=== PATIENT | male | born 1940 | race Caucasian/White ===

== ENCOUNTER 2016-09-13 11:40 | Observation (INO) | payer MEDICARE, OTHER ==
[2016-09-13] VITALS (14 sets, daily range): BP systolic 113–152; BP diastolic 64–123; PULSE 50–160; RESP 16–22; TEMP 96.5–98; O2SAT 92–97
[~2016-09-13] VITALS: Ht 172.7 cm; Wt 112.1 kg
[~2016-09-13 11:40] MED LIST: AMIO200T PO; APIX5TAB PO; ASPI-110 PO; COQ-100C2 PO; FURO1TAB60 PO; IPRA0.03 EACH NARE; MULT-135 PO; OSTETAB PO; POTA10TA2 PO; PRAV80TA2 PO; TAMS0.4C4 PO; VITA10003 PO; ZETI10TA5 PO
[2016-09-13] MEDS ORDERED: TEST-55 (11:58)
[2016-09-13] MEDS ORDERED: ASPIRIN 325 MG TAB PO ONE (12:00)
[2016-09-13] MEDS ORDERED: SODIUM CHLORIDE 0.9% FLUSH 5 ML FLUSH IVF PRN ×2 (12:00→13:30)
--- NOTE | 2016-09-13 12:02 | PD ---
HPI Chief Complaint: Cardiac Complaint Time Seen by Provider: 11:53 Travel History International Travel<30 days: No Contact w/Intl Traveler<30days: No Traveled to known affect area: No History of Present Illness HPI Patient presents with complaints of elevated heart rate mild dyspnea and mild diaphoresis. Reports a history of atrial fibrillation with [address] Painting. Other past medical history includes CHF hypertension and hyperlipidemia. Reel Hooker is Dr. Dillard. Denies any radiation to left arm. Nondiabetic. Nonsmoker. Positive family history for cardiac disease. Reports that his heart rate was elevated yesterday morning in the 150s however after dinner it dropped into the 70s and was fine overnight. When he awoke this morning pulse was again elevated to proceeded to the emergency room. PFSH Past Medical History Hx Anticoagulant Therapy: Yes (ELIQUIS, ASA ) Arthritis: Yes Asthma: No Anxiety: Yes Depression: No Heart Rhythm Problems: Yes (Afib/flutter, CHF) Cancer: Yes (SKIN) Cardiac Catheterization: Yes Cardiovascular Problems: Yes (ABLATIONS TIMES 2, STENT A. FIB, CHOL) High Cholesterol: Yes Chemotherapy: No Chest Pain: No Congestive Heart Failure: Yes COPD: No Diabetes: No Diminished Hearing: No Endocrine: No Gastrointestinal Disorders: No Genitourinary: No Hypertension: Yes Immune Disorder: No Implanted Vascular Access Dvce: Yes Kidney Stones: Yes (in the past) Musculoskeletal: Yes Neurologic: No Psychiatric: Yes Reproductive: No Respiratory: Yes Radiation Therapy: No Sickle Cell Disease: No Sleep Apnea: Yes Tetanus Vaccination: Unknown Past Surgical History Abdominal Surgery: Yes (APPENDECTOMY) AICD: No Arteriovenous Shunt: No Body Medical Devices: STENT Cardiac Surgery: Yes (, STENT, ABLATIONS TIMES 2) Coronary Stent: Yes Eye Surgery: Yes (CATARACT) Insulin Pump: No Joint Replacement: Yes (SCREWS IN RIGHT FOOT) Pacemaker: No Other Surgery: Yes (CATARACTS ) Social History Alcohol Use: No Tobacco Use: No Substance Use: No Allergies-Medications (Allergen,Severity, Reaction): Coded Allergies: No Known Allergies (Unverified , 07/23/16) Reported Meds & Prescriptions Reported Meds & Active Scripts Active Reported Testosterone (Testosterone (Bulk)) 1 Pow Pow Unknown Dose WEEKLY Potassium Chloride ER (Potassium Chloride) 10 Meq Tab 10 Meq PO BID Multi Vitamin (Multiple Vitamin) 1 Tab Tab 1 Tab PO DAILY Ipratropium Nasal 0.03% Bivins 1 Bivins EACH NARE TID PRN Vitamin D-3 (Cholecalciferol) 1,000 Unit Tab 1,000 Units PO DAILY Osteo Bi-Flex Triple Stre (Misc Natural Products) 1 Tab Tab 1,500 Mg PO DAILY Lasix (Furosemide) 40 Mg Tab 40 Mg PO BID Zetia (Ezetimibe) 10 Mg Tab 10 Mg PO DAILY Coq-10 (Coenzyme Q10 (Ubidecarenone)) 100 Mg Cap 100 Mg PO DAILY Aspirin 81 (Aspirin) 81 Mg Tabdr 81 Mg PO BID Eliquis (Apixaban) 5 Mg Tab 5 Mg PO BID Amiodarone (Amiodarone HCl) 200 Mg Tab 200 Mg PO DAILY Tamsulosin (Tamsulosin HCl) 0.4 Mg Cap 0.4 Mg PO DAILY Pravastatin 80 Mg Tab 80 Mg PO HS Review of Systems General / Constitutional: No: Fever Eyes: No: Visual changes HENT: No: Headaches Cardiovascular: Positive: Tachycardia, No: Chest Pain or Discomfort Respiratory: Positive: Shortness of Breath Gastrointestinal: No: Abdominal Pain Genitourinary: No: Dysuria Musculoskeletal: No: Pain Skin: No Rash Neurologic: No: Weakness Psychiatric: No: Depression Endocrine: No: Polydipsia Hematologic/Lymphatic: No: Easy Bruising Physical Exam Narrative GENERAL: Well-nourished, well-developed patient. SKIN: Warm and dry. HEAD: Normocephalic. EYES: No scleral icterus. No injection or drainage. NECK: Supple, trachea midline. No JVD or lymphadenopathy. CARDIOVASCULAR: Regular rate and tachycardic without murmurs, gallops, or rubs. RESPIRATORY: Breath sounds equal bilaterally. No accessory muscle use. GASTROINTESTINAL: Abdomen soft, non-tender, nondistended. MUSCULOSKELETAL: No cyanosis, or edema. BACK: Nontender without obvious deformity. No CVA tenderness. Data Data Last Documented VS Vital Signs Date Time Temp Pulse Resp B/P Pulse Ox O2 Delivery O2 Flow Rate FiO2 09/13/16 12:45 107 17 113/64 97 Room Air 09/13/16 12:10 2 09/13/16 11:46 98.0 Orders Electrocardiogram (09/13/16 11:53) Basic Metabolic Panel (Bmp) (09/13/16 11:53) Ckmb (Isoenzyme) Profile (09/13/16 11:53) Comprehensive Metabolic Panel (09/13/16 11:53) Magnesium (Mg) (09/13/16 11:53) Prothrombin Time / Inr (Pt) (09/13/16 11:53) Act Partial Throm Time (Ptt) (09/13/16 11:53) Troponin I (09/13/16 11:53) Chest, Single Ap (09/13/16 11:53) Ecg Monitoring (09/13/16 11:53) Bilateral Bp Monitoring (09/13/16 11:53) Iv Access Insert/Monitor (09/13/16 11:53) Oximetry (09/13/16 11:53) Oxygen Administration (09/13/16 11:53) Aspirin (Aspirin) (09/13/16 12:00) Sodium Chloride 0.9% Flush (Ns Flush) (09/13/16 12:00) Metoprolol Tartrate Inj (Lopressor Inj) (09/13/16 12:00) Electrocardiogram (09/13/16 ) Digoxin Inj (Lanoxin Inj) (09/13/16 13:00) Metoprolol Tartrate (Lopressor) (09/13/16 21:00) Labs Laboratory Tests Test 09/13/16 11:45 Prothrombin Time 11.8 SEC Prothromb Time International 1.1 RATIO Ratio Activated Partial 29.0 SEC Thromboplast Time Sodium Level 145 MEQ/L Potassium Level 3.9 MEQ/L Chloride Level 108 MEQ/L Carbon Dioxide Level 27.4 MEQ/L Anion Gap 10 MEQ/L Blood Urea Nitrogen 30 MG/DL Creatinine 1.30 MG/DL Estimat Glomerular Filtration 54 ML/MIN Rate Random Glucose 213 MG/DL Calcium Level 8.7 MG/DL Magnesium Level 2.3 MG/DL Total Bilirubin 0.4 MG/DL Aspartate Amino Transf 13 U/L (AST/SGOT) Alanine Aminotransferase 23 U/L (ALT/SGPT) Alkaline Phosphatase 59 U/L Total Creatine Kinase 47 U/L Troponin I 0.06 NG/ML Total Protein 7.2 GM/DL Albumin 3.4 GM/DL [facility] Medical Decision Making Medical Screen Exam Complete: Yes Emergency Medical Condition: Yes Differential Diagnosis Atrial fibrillation, SVT, acute coronary syndrome, pulmonary embolism Narrative Course Assessment and plan discussed with patient and at bedside. Initial EKG revealed a sinus tachycardia with a rate of 160 and right bundle branch block. Previous EKG on file was at the time of his previous ablation on 07/25/16 which revealed sinus bradycardia rate of 50. Patient received a single dose of IV beta eleonora with good results. Rate in the 100s. Repeat EKG confirmed atrial fibrillation. Cardiac enzymes mildly elevated at 0.06 likely secondary to A. fib. Physician Communication Physician Communication Spoke with Dr. Ha who is covering for Dr. Dillard and Dr. Sweeney who is in agreement will admit for observation. Diagnosis Primary Impression: A-fib Qualified Code: I48.0 - Paroxysmal atrial fibrillation Nico Gr MD Sep 13, 2016 12:02
[2016-09-13] MEDS: METOPROLOL TARTRATE 5 MG/5 ML VIAL IVS SCH ×3 (12:04→12:10)
[2016-09-13 12:12] LABS: CHLORIDE 108 MEQ/L (98-107); POTASSIUM 3.9 MEQ/L (3.5-5.1); SODIUM (NA) 145 MEQ/L (136-145)
[2016-09-13 12:16] LABS: ANION GAP 10 MEQ/L (5-15); BICARBONATE 27.4 MEQ/L (21.0-32.0); BLOOD UREA NITROGEN 30 MG/DL (7-18); MAGNESIUM 2.3 MG/DL (1.5-2.5)
[2016-09-13 12:17] LABS: INTERNATIONAL NORMALIZED RATIO 1.1 RATIO; PROTHROMBIN TIME - PATIENT 11.8 SEC (9.8-11.6)
[2016-09-13 12:19] LABS: ALT (GPT) 23 U/L (12-78); AST (GOT) 13 U/L (15-37); GLOMERULAR FILTRATION RATE 54 ML/MIN (>89)
[2016-09-13 12:20] LABS: TOTAL BILIRUBIN ADULT 0.4 MG/DL (0.2-1.0)
[2016-09-13 12:22] LABS: ALKALINE PHOSPHATASE 59 U/L (45-117); CREATINE KINASE 47 U/L (39-308)
--- NOTE | 2016-09-13 12:39 | RADHPO ---
EXAM DATE/TIME: 09/13/2016 12:07 [facility] COMPARISON: CHEST SINGLE AP, July 23, 2016, 9:11. INDICATIONS : Irregular heart rate, short of breath, cough MEDICAL HISTORY : None. SURGICAL HISTORY : None. ENCOUNTER: Initial ACUITY: 1 day PAIN SCORE: 0/10 LOCATION: Bilateral chest FINDINGS: Portable AP view of the chest demonstrate stable enlargement of the cardiac silhouette. There is stab le interstitial prominence. No effusion, consolidation, or pneumothorax is appreciated. Bones and sof t tissues demonstrate no acute finding. CONCLUSION: Stable enlargement of the cardiac silhouette with interstitial prominence. Otherwise, no acute findin g is identified. Brannon Venegas MD on September 13, 2016 at 12:37 Board Certified Radiologist. This report was verified electronically.
[2016-09-13] MEDS ORDERED: DIGOXIN 0.5 MG/2 ML VIAL IV PUSH ONE (13:00)
[2016-09-13] MEDS ORDERED: ACETAMINOPHEN 325 MG TAB PO PRN (13:30)
[2016-09-13] MEDS ORDERED: ONDANSETRON HCL 4 MG/2 ML VIAL IV PRN (13:30)
[2016-09-13] MEDS ORDERED: ACETAMINOPHEN 650 MG SUPP PR PRN (13:30)
[2016-09-13] MEDS: METOPROLOL TARTRATE 5 MG/5 ML VIAL IV PUSH PRN ×3 (15:30→22:32)
--- NOTE | 2016-09-13 18:21 | HHI.HP ---
[facility] Husam Tierney MD Admission Diagnosis paroxysmal atrial fibrillation Diagnoses: Travel History International Travel<30 Days: No Contact w/Intl Traveler <30 Da: No Traveled to Known Affected Are: No Past Family Social History Past Medical History Hypertension Dyslipidemia BPH Obstructive sleep apnea and severe left Atrial fibrillation s/p ablation 07/[address] Laura Chronic systolic congestive heart failure - EF 25-30% Coronary artery disease status post coronary stenting in the past Past Surgical History Cardiac ablation for atrial fibrillation Coronary stenting Right foot surgery Cataract surgery Allergies: Coded Allergies: No Known Allergies (Unverified , 07/23/16) Physical Exam Vital Signs Vital Signs Date Time Temp Pulse Resp B/P Pulse Ox O2 Delivery O2 Flow Rate FiO2 09/13/16 16:00 96.9 70 20 125/89 95 09/13/16 15:52 99 136/81 09/13/16 15:52 99 09/13/16 15:24 122 09/13/16 14:30 97.6 81 22 119/82 93 09/13/16 14:27 109 16 136/68 96 Nasal Cannula 2 09/13/16 12:45 107 17 113/64 97 Room Air 09/13/16 12:11 150/72 125/67 09/13/16 12:10 103 16 150/72 97 Nasal Cannula 2 09/13/16 12:00 97 Nasal Cannula 2.00 09/13/16 11:59 97 Nasal Cannula 2 09/13/16 11:59 18 97 Nasal Cannula 2 09/13/16 11:50 18 93 Nasal Cannula 2 09/13/16 11:46 98.0 160 18 152/123 94 Physical Exam Laboratory Laboratory Tests Test 09/13/16 09/13/16 11:45 17:31 Prothrombin Time 11.8 Prothromb Time International 1.1 Ratio Activated Partial 29.0 Thromboplast Time Sodium Level 145 Potassium Level 3.9 Chloride Level 108 Carbon Dioxide Level 27.4 Anion Gap 10 Blood Urea Nitrogen 30 Creatinine 1.30 Estimat Glomerular Filtration 54 Rate Random Glucose 213 Calcium Level 8.7 Magnesium Level 2.3 Total Bilirubin 0.4 Aspartate Amino Transf 13 (AST/SGOT) Alanine Aminotransferase 23 (ALT/SGPT) Alkaline Phosphatase 59 Total Creatine Kinase 47 46 Troponin I 0.06 0.10 Total Protein 7.2 Albumin 3.4 Result Diagram: 09/13/16 1145 Nery Sweeney MD Sep 13, 2016 18:21
--- NOTE | 2016-09-13 19:43 | HHI.HP ---
[facility] Service [facility] Primary Care Physician Husam Tierney MD Admission Diagnosis paroxysmal atrial fibrillation Diagnoses: Travel History International Travel<30 Days: No Contact w/Intl Traveler <30 Da: No Traveled to Known Affected Are: No History of Present Illness This is a very pleasant 76-year-old male with history of chronic systolic congestive heart failure, paroxysmal atrial fibrillation diagnosed in fall. He comes in today for uncontrolled heart rate. He underwent an ablation last month with Dr. Jansen. He has been told to check his pulse daily. This morning it was 160. Yesterday morning it was also elevated. He does get short of breath when this happens. He came to the ER. He takes amiodarone. He used to take atenolol but this was stopped after his last ablation. He states he's been told by Dr. Jansen that he cannot have another ablation due to too much scar tissue. Review of Systems Constitutional: DENIES: Fever, Chills Ears, nose, mouth, throat: DENIES: Throat pain, Sinus Pain Respiratory: COMPLAINS OF: Shortness of breath, DENIES: Sputum production Cardiovascular: COMPLAINS OF: Palpitations, DENIES: Chest pain Gastrointestinal: DENIES: Diarrhea, Vomiting Genitourinary: DENIES: Urgency, Dysuria Musculoskeletal: DENIES: Joint Swelling, Back pain Integumentary: DENIES: Pruritus, Rash Neurologic: DENIES: Headache, Localized weakness Psychiatric: DENIES: Anxiety, Confusion Past Family Social History Past Medical History Hypertension Dyslipidemia BPH Obstructive sleep apnea and severe left Atrial fibrillation s/p ablation 07/[address] Laura Chronic systolic congestive heart failure - EF 25-30% Coronary artery disease status post coronary stenting in the past Past Surgical History Cardiac ablation for atrial fibrillation Coronary stenting Right foot surgery Cataract surgery Allergies: Coded Allergies: No Known Allergies (Unverified , 07/23/16) Family History reviewed, [facility] [place] Social History no etoh Physical Exam Vital Signs Vital Signs Date Time Temp Pulse Resp B/P Pulse Ox O2 Delivery O2 Flow Rate FiO2 09/13/16 16:00 96.9 70 20 125/89 95 09/13/16 15:52 99 136/81 09/13/16 15:52 99 09/13/16 15:24 122 09/13/16 14:30 97.6 81 22 119/82 93 09/13/16 14:27 109 16 136/68 96 Nasal Cannula 2 09/13/16 12:45 107 17 113/64 97 Room Air 09/13/16 12:11 150/72 125/67 09/13/16 12:10 103 16 150/72 97 Nasal Cannula 2 09/13/16 12:00 97 Nasal Cannula 2.00 09/13/16 11:59 97 Nasal Cannula 2 09/13/16 11:59 18 97 Nasal Cannula 2 09/13/16 11:50 18 93 Nasal Cannula 2 09/13/16 11:46 98.0 160 18 152/123 94 Physical Exam GENERAL: This is a well-nourished, well-developed patient, in no apparent distress. SKIN: No rashes, ecchymoses or lesions. Cool and dry. HEAD: Atraumatic. Normocephalic. No temporal or scalp tenderness. EYES: Pupils equal round and reactive. Extraocular motions intact. No scleral icterus. No injection or drainage. ENT: Nose without bleeding, purulent drainage or septal hematoma. Throat without erythema, tonsillar hypertrophy or exudate. Uvula midline. Airway patent. NECK: Trachea midline. No JVD or lymphadenopathy. Supple, nontender, no meningeal signs. CARDIOVASCULAR: Regular rate and rhythm without murmurs, gallops, or rubs. RESPIRATORY: Clear to auscultation. Breath sounds equal bilaterally. No wheezes , rales, or rhonchi. GASTROINTESTINAL: Abdomen soft, non-tender, nondistended. No hepato-splenomegaly , or palpable masses. No guarding. MUSCULOSKELETAL: Extremities without clubbing, cyanosis, or edema. No joint tenderness, effusion, or edema noted. No calf tenderness. Negative Homans sign bilaterally. NEUROLOGICAL: Awake and alert. Cranial nerves II through XII intact. Motor and sensory grossly within normal limits. Five out of 5 muscle strength in all muscle groups. Normal speech. Laboratory Laboratory Tests Test 09/13/16 09/13/16 11:45 17:31 Prothrombin Time 11.8 Prothromb Time International 1.1 Ratio Activated Partial 29.0 Thromboplast Time Sodium Level 145 Potassium Level 3.9 Chloride Level 108 Carbon Dioxide Level 27.4 Anion Gap 10 Blood Urea Nitrogen 30 Creatinine 1.30 Estimat Glomerular Filtration 54 Rate Random Glucose 213 Calcium Level 8.7 Magnesium Level 2.3 Total Bilirubin 0.4 Aspartate Amino Transf 13 (AST/SGOT) Alanine Aminotransferase 23 (ALT/SGPT) Alkaline Phosphatase 59 Total Creatine Kinase 47 46 Troponin I 0.06 0.10 Total Protein 7.2 Albumin 3.4 Result Diagram: 09/13/16 1145 Assessment and Plan Assessment and Plan -Atrial fibrillation with rapid ventricular rate. Status post digoxin metoprolol IV. He has been started on metoprolol by mouth. Hopefully this will control his rate. Continue amiodarone and Eliquis. Observe overnight. Nery Sweeney MD Sep 13, 2016 19:43
[2016-09-13] MEDS ORDERED: PRAVASTATIN SOD 80 MG TAB PO SCH (21:00)
[2016-09-13] MEDS ORDERED: METOPROLOL TARTRATE 25 MG TAB PO SCH (21:00)
[2016-09-13] MEDS: APIXABAN 5 MG TABLET PO SCH (21:16)
[2016-09-13] MEDS: FUROSEMIDE 40 MG TAB PO SCH (21:16)
[2016-09-13] MEDS: ASPIRIN EC 81 MG TABEC PO SCH (21:17)
[2016-09-13] MEDS: POTASSIUM CHLORIDE 10 MEQ CONTROLLED RELEASE TAB PO SCH (21:17)
[2016-09-13] MEDS: METOPROLOL TARTRATE 50 MG TAB PO SCH (21:17)
[2016-09-13] MEDS: SODIUM CHLORIDE 0.9% FLUSH 5 ML FLUSH IVF SCH (21:18)
[2016-09-14] VITALS: BP 137/95; PULSE 77; RESP 20; TEMP 96.5; O2SAT 95
[2016-09-14 04:00] VITALS: BP 119/98; PULSE 79; RESP 20; TEMP 96.3; O2SAT 96
[2016-09-14] MEDS: METOPROLOL TARTRATE 50 MG TAB PO SCH (05:27)
[2016-09-14 08:00] VITALS: BP 142/85; PULSE 103; PULSE 52; RESP 22; TEMP 98.4; O2SAT 93
[2016-09-14] MEDS: ASPIRIN EC 81 MG TABEC PO SCH (08:05)
[2016-09-14] MEDS: POTASSIUM CHLORIDE 10 MEQ CONTROLLED RELEASE TAB PO SCH (08:05)
[2016-09-14] MEDS: FUROSEMIDE 40 MG TAB PO SCH (08:06)
[2016-09-14] MEDS: SODIUM CHLORIDE 0.9% FLUSH 5 ML FLUSH IVF SCH (08:06)
[2016-09-14] MEDS: APIXABAN 5 MG TABLET PO SCH (08:06)
[2016-09-14 08:55] VITALS: O2SAT 98
[2016-09-14] MEDS ORDERED: AMIODARONE 200 MG TAB PO SCH (09:00)
[2016-09-14] MEDS ORDERED: EZETIMIBE 10 MG TAB PO SCH (09:00)
[2016-09-14] MEDS ORDERED: TAMSULOSIN HCL 0.4 MG CAP PO SCH (09:00)
[2016-09-14] MEDS ORDERED: PNEUMOCOCCAL POLYVALENT INJ 25 MCG/0.5 ML SYR IM ONE (10:00)
[2016-09-14 12:00] VITALS: BP 118/75; PULSE 60; RESP 20; TEMP 98.4; O2SAT 96
[2016-09-14] MEDS ORDERED: METO-426 PO (12:06)
--- NOTE | 2016-09-14 12:17 | HHI.PR ---
Subjective Remarks Patient seen and examined today with Dr Sweeney. Patient HR much improved, reviewed telemetry and no tachycardia after PM metoprolol given. Patient very eager to go home Objective Vitals Vital Signs Date Time Temp Pulse Resp B/P Pulse Ox O2 Delivery O2 Flow Rate FiO2 09/14/16 12:00 98.4 60 20 118/75 96 09/14/16 08:55 98 21 09/14/16 08:00 103 09/14/16 08:00 98.4 52 22 142/85 93 09/14/16 04:00 96.3 79 20 119/98 96 09/14/16 00:00 96.5 77 20 137/95 95 09/13/16 22:25 155 09/13/16 20:55 94 21 09/13/16 20:00 96.5 50 22 92 09/13/16 20:00 105 09/13/16 16:00 96.9 70 20 125/89 95 09/13/16 15:52 99 136/81 09/13/16 15:52 99 09/13/16 15:24 122 09/13/16 14:30 97.6 81 22 119/82 93 09/13/16 14:27 109 16 136/68 96 Nasal Cannula 2 09/13/16 12:45 107 17 113/64 97 Room Air Result Diagram: 09/13/16 1145 Imaging Last Impressions Chest X-Ray 09/13/16 1153 Signed Impressions: Service Date/Time: Tuesday, September 13, 2016 12:07 - CONCLUSION: Stable enlargement of the cardiac silhouette with interstitial prominence. Otherwise, no acute finding is identified. Brannon Venegas MD Objective Remarks GENERAL: Well-nourished, well-developed patient. SKIN: Warm and dry. HEAD: Normocephalic. EYES: No scleral icterus. No injection or drainage. NECK: Supple, trachea midline. No JVD or lymphadenopathy. CARDIOVASCULAR: irregular rate and irregular rhythm without murmurs, gallops, or rubs. RESPIRATORY: Breath sounds equal bilaterally. No accessory muscle use. GASTROINTESTINAL: Abdomen soft, non-tender, nondistended. EXTREMITIES: No cyanosis, or edema. NEUROLOGICAL: Awake, alert, and oriented x 3. Non-focal. Urinary Catheter: No Vascular Central Line Catheter: No A/P Assessment and Plan Atrial fibrillation with rapid ventricular rate. --Status post digoxin metoprolol IV. --He has been started on metoprolol by mouth. With HR control overnight --Continue amiodarone and Eliquis. DVT prevention --Eliquis Written by Zana Winters, acting as scribe for Dr. Sweeney on 09/14/16 at 12 :00. The documentation accurately reflects the work and decisions performed face-to- face by Dr. Sweeney on 09/14/16 at 1200. Discharge Planning Discharge home in stable condition activity: ad Rashmi Diet: Healthy heart diet Medication per medication reconciliation sheet follow up with primary medical doctor in 1 week Zana Winters Sep 14, 2016 12:17
--- NOTE | 2016-09-15 21:36 | EKG ---
Date Performed: 09/13/2016 Time Performed: 12:15:22 PTAGE: 76 years EKG: Atrial fibrillation with rapid ventricular response with an aberrant beat Right bundle bran ch block Abnormal ECG PREVIOUS TRACING : 09/13/2016 11.49 Compared to the previous tracing, rate has decreased DOCTOR: Mk Ha Interpretating Date/Time 09/15/2016 21:35:23
--- NOTE | 2016-09-15 21:42 | EKG ---
Date Performed: 09/13/2016 Time Performed: 11:49:30 PTAGE: 76 years EKG: Probable sinus tachycardia. Right bundle branch block Inferior T wave changes are nonspecif ic Abnormal ECG PREVIOUS TRACING : 07/25/2016 05.17 Compared to the previous tracing, rate has increased, and n ow is a RBBB DOCTOR: Mk Ha Interpretating Date/Time 09/15/2016 21:40:52
== END 2016-09-14 12:51 | disposition home or self-care (01) ==
LOC: PHEFT 11:40 → PHEDA 13:23 → PH3A 14:34
PROVIDERS: ADMIT Family Medicine; ATTEND Family Medicine
DX: I48.0 Paroxysmal atrial fibrillation (principal); I50.22 Chronic systolic (congestive) heart failure; I45.10 Unspecified right bundle-branch block; I25.10 Atherosclerotic heart disease of native coronary artery without angina pectoris; I10 Essential (primary) hypertension; E78.5 Hyperlipidemia, unspecified; N40.0 Benign prostatic hyperplasia without lower urinary tract symptoms; G47.33 Obstructive sleep apnea (adult) (pediatric); E78.00 Pure hypercholesterolemia, unspecified; Z95.5 Presence of coronary angioplasty implant and graft; Z87.442 Personal history of urinary calculi
CPT/HCPCS: 71010; 80053; 82550; 83735; 84484; 85610; 85730; 93005; 96374; 99285; G0378

== ENCOUNTER 2017-12-10 15:49 | Inpatient (IN) | payer MEDICARE, OTHER ==
[2017-12-10] VITALS (9 sets, daily range): BP systolic 119–145; BP diastolic 57–96; PULSE 58–93; RESP 17–18; TEMP 98.1–103.1; O2SAT 93–94
[~2017-12-10] VITALS: Ht 170.2 cm; Wt 122.4 kg
[~2017-12-10 15:49] MED LIST changes: -ASPI-110 PO; +ASPI1TAB57 PO; +EZET10 PO; +METO-426 PO; +TEST-55; -ZETI10TA5 PO
[2017-12-10] MEDS ORDERED: ACETAMINOPHEN 650 MG SUPP RECTAL ONE (16:15)
[2017-12-10 16:54] LABS: AUTOMATED NEUTROPHIL # 7.8 TH/MM3 (1.8-7.7); BASOPHIL % 0.3 % (0.0-2.0); EOSINOPHIL % 0.5 % (0.0-4.0); HEMATOCRIT 45.6 % (39.0-51.0); HEMOGLOBIN 15.6 GM/DL (13.0-17.0); LYMPH % 7.6 % (9.0-44.0); LYMPHOCYTE # 0.7 TH/MM3 (1.0-4.8); MEAN CORPUSCULAR HEMOGLOBIN 29.8 PG (27.0-34.0); MEAN CORPUSCULAR HGB CONC 34.2 % (32.0-36.0); MEAN PLATELET VOLUME 6.8 FL (7.0-11.0); MONO % 2.8 % (0.0-8.0); MONOCYTE # 0.3 TH/MM3 (0-0.9); NEUT % 88.8 % (16.0-70.0); PLATELET COUNT 182 TH/MM3 (150-450); RED BLOOD COUNT 5.24 MIL/MM3 (4.50-5.90); RED CELL DISTRIBUTION WIDTH 13.9 % (11.6-17.2); WHITE BLOOD COUNT 8.8 TH/MM3 (4.0-11.0)
--- NOTE | 2017-12-10 16:57 | RADRPT ---
EXAM DATE/TIME: 12/10/2017 16:16 [facility] COMPARISON: CHEST SINGLE AP, September 13, 2016, 12:07. INDICATIONS : Fever MEDICAL HISTORY : Congestive heart failure. Cardiovascular disease Hypertension. SURGICAL HISTORY : None. ENCOUNTER: Initial ACUITY: 1 day PAIN SCORE: 0/10 LOCATION: chest FINDINGS: A single view of the chest demonstrates the lungs to be symmetrically aerated without evidence of mas s, infiltrate or effusion. However, heart size is prominent with some mild interstitial prominence po ssibly representing some degree of vascular congestion or volume overload. Osseous structures are int act CONCLUSION: 1. No acute infiltrate. 2. Cardiomegaly with mild interstitial prominence concerning for some degree of vascular congestion o r volume overload, unchanged from prior. Yonatan Jang MD on December 10, 2017 at 16:53 Board Certified Radiologist. This report was verified electronically.
[2017-12-10 17:17] LABS: BILIRUBIN, URINE NEG (NEG); BLOOD, URINE TRACE (NEG); GLUCOSE,URINE NEG (NEG); HYALINE CAST, URINE 2 /lpf (RARE); KETONE, URINE NEG (NEG); NITRITE,URINE NEG (NEG); URINE COLOR LIGHT-YELLOW (YELLW/STRAW); URINE LEUKOCYTE ESTERASE NEG (NEG)
[2017-12-10 17:23] LABS: ALBUMIN 4.2 GM/DL (3.4-5.0); AST (GOT) 33 U/L (15-37); BLOOD UREA NITROGEN 24 MG/DL (7-18); CALCIUM 9.4 MG/DL (8.5-10.1); CHLORIDE 102 MEQ/L (98-107); CREATININE 1.38 MG/DL (0.60-1.30); GLOMERULAR FILTRATION RATE 50 ML/MIN (>89); GLUCOSE,RANDOM 113 MG/DL (74-106); SODIUM (NA) 139 MEQ/L (136-145)
[2017-12-10 17:24] LABS: ALT (GPT) 57 U/L (12-78)
[2017-12-10 17:24] LABS: LACTIC ACID SEPSIS PROTOCOL 2.3 mmol/L (0.4-2.0)
[2017-12-10 17:26] LABS: ALKALINE PHOSPHATASE 70 U/L (45-117); TOTAL BILIRUBIN ADULT 0.5 MG/DL (0.2-1.0); TOTAL PROTEIN 8.1 GM/DL (6.4-8.2)
[2017-12-10] MEDS ORDERED: PIPERACIL-TAZO 4.5 GM PREMIX 100 ML IV STA (17:48)
[2017-12-10] MEDS ORDERED: VANCOMYCIN INJ 1,700 MG in SODIUM CHLORID 0.9% 500 ML INJ 500 ML IV ONE (18:00)
[2017-12-10] MEDS ORDERED: REST15CA PO (18:16)
[2017-12-10] MEDS ORDERED: COEN1CAP PO (18:16)
[2017-12-10] MEDS ORDERED: GLUC15009 PO (18:16)
[2017-12-10] MEDS ORDERED: METO-426 PO (18:16)
[2017-12-10] MEDS ORDERED: DULE100A INH (18:16)
[2017-12-10] MEDS ORDERED: VITA1000 PO (18:16)
[2017-12-10] MEDS ORDERED: [UNRECOGNIZED DRUG - CODE] IM (18:16)
[2017-12-10] MEDS ORDERED: MULT1TAB PO (18:16)
--- NOTE | 2017-12-10 18:18 | PD ---
HPI Chief Complaint: Cold / Flu Symptoms Time Seen by Provider: 16:05 Travel History International Travel<30 days: Yes Contact w/Intl Traveler<30days: Yes Name of Country Traveled to: [facility] via cruise ship. States he did not leave the boat Traveled to known affect area: No History of Present Illness HPI 69-year-old male with a history of hypertension, atrial fibrillation, presents today with complaints of fever and weakness. Patient was recently on a cruise ship. Patient reportedly was on a cruise to the [facility]. He returned 4 days ago. Patient states he woke up today with the symptoms. Temperature in the field was 102.4. Patient reports a cough that is not productive. He denies any urinary symptoms. He denies any diarrhea. He presents with just generalized weakness. PFSH Past Medical History Hx Anticoagulant Therapy: Yes (ELIQUIS) Arthritis: Yes Asthma: No Anxiety: Yes Depression: No Heart Rhythm Problems: Yes (Afib/flutter, CHF) Cancer: Yes (SKIN) Cardiac Catheterization: Yes Cardiovascular Problems: Yes (ABLATIONS TIMES 2, STENT, A. FIB, CHOL) High Cholesterol: Yes Chemotherapy: No Chest Pain: No Congestive Heart Failure: Yes COPD: No Diabetes: No Diminished Hearing: No Endocrine: No Gastrointestinal Disorders: No Genitourinary: No Hypertension: Yes Immune Disorder: No Implanted Vascular Access Dvce: Yes Kidney Stones: Yes (in the past) Musculoskeletal: Yes Neurologic: No Psychiatric: Yes Reproductive: No Respiratory: Yes Radiation Therapy: No Sickle Cell Disease: No Sleep Apnea: Yes (CPAP WITH OXYGEN AT NIGHT) Past Surgical History Abdominal Surgery: Yes (APPENDECTOMY) AICD: No Arteriovenous Shunt: No Body Medical Devices: STENT Cardiac Surgery: Yes (, STENT, ABLATIONS TIMES 2) Coronary Stent: Yes Eye Surgery: Yes (CATARACT) Insulin Pump: No Joint Replacement: Yes (SCREW IN RIGHT FOOT) Pacemaker: No Other Surgery: Yes (CATARACTS ) Social History Alcohol Use: No Tobacco Use: No Substance Use: No Allergies-Medications (Allergen,Severity, Reaction): Coded Allergies: No Known Allergies (Unverified , 07/23/16) Reported Meds & Prescriptions Reported Meds & Active Scripts Active Reported Metoprolol Tartrate 75 Mg Tab 37.5 Mg PO DAILY Restoril (Temazepam) 15 Mg Cap 15 Mg PO HS Glucosamine 1,500 Mg Tab 1,500 Mg PO DAILY Dulera 120 Act Inh (Mometasone-Formoterol 120 Act Inh) 100-5 Mcg/Act Inh 1 Puff INH BID Depo-Testosterone Inj (Testosterone Cypionate) Unknown Strength Inj Unknown Dose IM WEEKLY Co Q-10 (Coenzyme Q10 (Ubidecarenone)) 100 Mg Cap 100 Mg PO DAILY Vitamin D-1000 (Cholecalciferol) 1,000 Unit Tab 1,000 Units PO DAILY Centrum Silver Adult 50+ (Multiple Vitamins W/ Minerals) 0.4 Mg-300 Mcg-250 Mcg Tab 1 Tab PO DAILY Potassium Chloride ER (Potassium Chloride) 10 Meq Tab 10 Meq PO BID Ipratropium Nasal 0.03% [place] 1 [place] EACH NARE QID PRN Lasix (Furosemide) 40 Mg Tab 40 Mg PO BID Zetia (Ezetimibe) 10 Mg Tab 10 Mg PO DAILY Aspirin 81 (Aspirin) 81 Mg Tabdr 162 Mg PO DAILY Eliquis (Apixaban) 5 Mg Tab 5 Mg PO BID Amiodarone (Amiodarone HCl) 200 Mg Tab 200 Mg PO DAILY Tamsulosin (Tamsulosin HCl) 0.4 Mg Cap 0.4 Mg PO DAILY Pravastatin 80 Mg Tab 80 Mg PO HS Review of Systems Except as stated in HPI: all other systems reviewed are Neg General / Constitutional: Positive: Fever, Chills HENT: No: Headaches, Neck Pain Cardiovascular: No: Chest Pain or Discomfort, Palpitations Respiratory: Positive: Cough, No: Shortness of Breath Gastrointestinal: No: Nausea, Vomiting Genitourinary: No: Frequency, Dysuria Musculoskeletal: No: Weakness, Pain Skin: No Rash, No Lesions Neurologic: Positive: Weakness, No: Dizziness, Headache Physical Exam Narrative GENERAL: Well-developed well-nourished male who appears weak in no acute respiratory distress. SKIN: Focused skin assessment warm/dry. HEAD: Atraumatic. Normocephalic. EYES: No scleral icterus. No injection or drainage. ENT: No nasal bleeding or discharge. Mucous membranes pink and moist. NECK: Trachea midline. Supple. CARDIOVASCULAR: Regular rate and rhythm. No murmur appreciated. RESPIRATORY: No accessory muscle use. Clear to auscultation. Breath sounds equal bilaterally. Decreased respiratory effort. GASTROINTESTINAL: Abdomen soft, non-tender, nondistended. No rebound or guarding. MUSCULOSKELETAL: No obvious deformities. No clubbing. No cyanosis. No edema. NEUROLOGICAL: Awake and weak appearing. No obvious cranial nerve deficits. Motor grossly within normal limits. Normal speech. Data Data Last Documented VS Vital Signs Date Time Temp Pulse Resp B/P (MAP) Pulse Ox O2 Delivery O2 Flow Rate FiO2 12/10/17 17:41 99.1 93 17 119/63 (81) 93 Nasal Cannula 2.00 Orders Orders Sepsis Workup Initiated (12/10/17 ) Electrocardiogram (12/10/17 16:06) Complete Blood Count With Diff (12/10/17 16:06) Comprehensive Metabolic Panel (12/10/17 16:06) Lactic Acid Sepsis Protocol (12/10/17 16:06) Urinalysis - C+S If Indicated (12/10/17 16:06) Influenzae A/B Antigen (12/10/17 16:06) Blood Culture (12/10/17 16:06) Legionella Urinary Antigen (12/10/17 16:06) Chest, Single Ap (12/10/17 16:06) Blood Glucose (12/10/17 16:06) Ecg Monitoring (12/10/17 16:06) Iv Access Insert/Monitor (12/10/17 16:06) Oximetry (12/10/17 16:06) Oxygen Administration (12/10/17 16:06) Acetaminophen Supp (Tylenol Supp) (12/10/17 16:15) Vancomycin Inj (Vancomycin Inj) (12/10/17 18:00) Piperacil-Tazo 4.5 Gm Premix (Zosyn 4.5 (12/10/17 17:48) Comprehensive Metabolic Panel (12/11/17 06:00) Free Thyroxine (T4) (12/11/17 06:00) Hemoglobin (Hgb) A1c (12/11/17 06:00) Magnesium (Mg) (12/11/17 06:00) Phosphorus (Po4) (12/11/17 06:00) Thyroid Stimulating Hormone (12/11/17 06:00) Complete Blood Count With Diff (12/11/17 06:00) Sodium Chlor 0.9% 1000 Ml Inj (Ns 1000 M (12/10/17 18:21) Sodium Chloride 0.9% Flush (Ns Flush) (12/10/17 18:30) Sodium Chloride 0.9% Flush (Ns Flush) (12/10/17 21:00) Vancomycin Consult Pharmacy (Vancomycin (12/10/17 18:30) Acetaminophen (Tylenol) (12/10/17 18:30) Ondansetron Inj (Zofran Inj) (12/10/17 18:30) Albuterol-Ipratropium Neb (Duoneb Neb) (12/10/17 22:00) Albuterol-Ipratropium Neb (Duoneb Neb) (12/10/17 18:30) Methylprednisolone So Succ Inj (Solumedr (12/10/17 18:30) Admit To Inpatient (12/10/17 ) Code Status (12/10/17 18:21) Vital Signs (Adult) Q4H (12/10/17 18:21) Activity Oob With Assistance PRN (12/10/17 18:21) Notify Parameters (12/10/17 18:) Intake + Output Q8H (12/10/17 18:21) ^ Smoking Cessation Counseling (12/10/17 18:21) Diet Heart Healthy (12/10/17 Dinner) Sputum Culture And Gram Stain (12/10/17 18:21) Blood Culture (12/10/17 18:21) Legionella Urinary Antigen (12/10/17 18:) Pneumococcal Urinary Antigen (12/10/17 18:21) Resp Oxygen Vikash C Titrat 1-4 L (12/10/17 ) Resp Incentive Spirometry (12/10/17 ) Consult Pt Eval & Treat (12/10/17 18:21) Enoxaparin Inj (Lovenox Inj) (12/10/17 18:30) Scd Bilateral/Knee High MOLLY.BID (12/10/17 18:21) Alfredo Bilateral/Knee High MOLLY.QSHIFT (12/10/17 18:30) Vital Signs (Adult) Q4H (12/10/17 18:21) Bedside Glucose MOLLY.CSUGAR (12/10/17 18:21) Fertilizer Supervisor / Telemetry .CONTINUOUS (12/10/17 18:21) Intake + Output MOLLY.QSHIFT (12/10/17 18:21) Sodium Chloride 0.9% Flush (Ns Flush) (12/10/17 18:30) Sodium Chloride 0.9% Flush (Ns Flush) (12/10/17 21:00) Metoclopramide Inj (Reglan Inj) (12/10/17 18:30) Creatine Kinase (Cpk) (12/10/17 18:21) Creatine Kinase (Cpk) (12/11/17 00:21) Troponin I (12/10/17 18:21) Troponin I (12/11/17 00:21) Pt Request For Service (12/10/17 18:) Ot Request For Service (12/10/17 18:) Case Management Consult (12/10/17 18:21) Acetaminophen (Tylenol) (12/10/17 18:30) Oxycodone-Acetamin 5-325 Mg (Percocet (12/10/17 18:30) Oxycodone-Acetamin 10-325 Mg (Percocet 1 (12/10/17 18:30) Morphine Inj (Morphine Inj) (12/10/17 18:30) Morphine Inj (Morphine Inj) (12/10/17 18:30) Morphine Inj (Morphine Inj) (12/10/17 18:30) Naloxone Inj (Narcan Inj) (12/10/17 18:30) Docusate Sodium-Senna (Benita-Colace) (12/10/17 21:00) Magnesium Hydroxide Liq (Milk Of Magnesi (12/10/17 18:30) Sennosides (Senokot) (12/10/17 18:30) Bisacodyl Supp (Dulcolax Supp) (12/10/17 18:30) Lactulose Liq (Lactulose Liq) (12/10/17 18:30) Inpatient Certification (12/10/17 ) Amiodarone (Cordarone) (12/11/17 09:00) Apixaban (Eliquis) (12/10/17 21:00) Aspirin Ec (Ecotrin Ec) (12/11/17 09:00) Ezetimibe (Zetia) (12/11/17 09:00) Metoprolol Tartrate (Lopressor) (12/11/17 09:00) Potassium Chloride (Kcl) (12/10/17 21:00) Pravastatin (Pravachol) (12/10/17 21:00) Tamsulosin (Flomax) (12/11/17 09:00) (Nf) Ipratropium Nasal (12/10/17 18:30) (Nf) Mometasone-Formoterol 120 Act Inh ( (12/10/17 21:00) Guaifenesin Er (Mucinex Er) (12/10/17 21:00) Admit Order (Ed Use Only) (12/10/17 18:36) Labs Laboratory Tests Test 12/10/17 16:20 12/10/17 16:22 12/10/17 16:50 White Blood Count 8.8 TH/MM3 Red Blood Count 5.24 MIL/MM3 Hemoglobin 15.6 GM/DL Hematocrit 45.6 % Mean Corpuscular Volume 87.0 FL Mean Corpuscular Hemoglobin 29.8 PG Mean Corpuscular Hemoglobin Concent 34.2 % Red Cell Distribution Width 13.9 % Platelet Count 182 TH/MM3 Mean Platelet Volume 6.8 FL Neutrophils (%) (Auto) 88.8 % Lymphocytes (%) (Auto) 7.6 % Monocytes (%) (Auto) 2.8 % Eosinophils (%) (Auto) 0.5 % Basophils (%) (Auto) 0.3 % Neutrophils # (Auto) 7.8 TH/MM3 Lymphocytes # (Auto) 0.7 TH/MM3 Monocytes # (Auto) 0.3 TH/MM3 Eosinophils # (Auto) 0.0 TH/MM3 Basophils # (Auto) 0.0 TH/MM3 CBC Comment DIFF FINAL Differential Comment Blood Urea Nitrogen 24 MG/DL Creatinine 1.38 MG/DL Random Glucose 113 MG/DL Total Protein 8.1 GM/DL Albumin 4.2 GM/DL Calcium Level 9.4 MG/DL Alkaline Phosphatase 70 U/L Aspartate Amino Transf (AST/SGOT) 33 U/L Alanine Aminotransferase (ALT/SGPT) 57 U/L Total Bilirubin 0.5 MG/DL Sodium Level 139 MEQ/L Potassium Level 3.8 MEQ/L Chloride Level 102 MEQ/L Carbon Dioxide Level 28.0 MEQ/L Anion Gap 9 MEQ/L Estimat Glomerular Filtration Rate 50 ML/MIN Lactic Acid Level 2.3 mmol/L Urine Color LIGHT-YELLOW Urine Turbidity CLEAR Urine pH 5.0 Urine Specific [place] 1.010 Urine Protein NEG mg/dL Urine Glucose (UA) NEG mg/dL Urine Ketones NEG mg/dL Urine Occult Blood TRACE Urine Nitrite NEG Urine Bilirubin NEG Urine Urobilinogen LESS THAN 2.0 MG/DL Urine Leukocyte Esterase NEG Urine RBC 1 /hpf Urine Hyaline Casts 2 /lpf Microscopic Urinalysis Comment CATH-CULT NOT IND MDM Medical Decision Making Medical Screen Exam Complete: Yes Emergency Medical Condition: Yes Differential Diagnosis Sepsis versus pneumonia versus UTI Narrative Course 77-year-old male presents with fever and weakness. Patient had sudden onset of fever this morning with associated weakness. Pressures 103. There is no obvious source at this time as his urine and chest x-ray appear within normal limits. The patient does have a lactic acid of 2.3. His white count is 8.8 with predominant segs. He has been started on Zosyn and vancomycin. Blood cultures have been ordered. Legionella was also ordered given the fact that he was on a cruise. The case was discussed with Dr. powers, [facility] hospitalist, who agrees to the admission. Diagnosis Primary Impression: Sepsis Additional Impressions: Chronic kidney disease A-fib Hypertension Admitting Information Admitting Physician Requests: Admit Jason Medrano MD Dec 10, 2017 18:18
[2017-12-10] MEDS ORDERED: NON-FORMULARY DRUG (Ipratropium Nasal 1 SPRAY) EACH NARE PRN (18:30)
[2017-12-10] MEDS ORDERED: oxyCODONE/ACETAMINOPHEN 10 MG/325 MG TAB PO PRN (18:30)
[2017-12-10] MEDS ORDERED: ACETAMINOPHEN 325 MG TAB PO PRN ×2 (18:30)
[2017-12-10] MEDS ORDERED: oxyCODONE/ACETAMINOPHEN 5 MG/325 MG TAB PO PRN (18:30)
[2017-12-10] MEDS ORDERED: LACTULOSE SYRUP 20 GM/30 ML CUP PO PRN (18:30)
[2017-12-10] MEDS ORDERED: NALOXONE HCL 0.4 MG/ML AMP IV PUSH PRN (18:30)
[2017-12-10] MEDS ORDERED: BISACODYL 10 MG SUPP RECTAL PRN (18:30)
[2017-12-10] MEDS ORDERED: MAGNESIUM HYDROXIDE SUSP 30 ML CUP PO PRN (18:30)
[2017-12-10] MEDS ORDERED: RESP: ALBUTEROL 2.5 MG/IPRATROPIUM 0.5 MG NEB (PRN) INH (18:30)
[2017-12-10] MEDS ORDERED: ONDANSETRON HCL 4 MG/2 ML VIAL IV PUSH PRN (18:30)
[2017-12-10] MEDS ORDERED: MORPHINE SULFATE 2 MG/ML SYRINGE IV PUSH PRN ×3 (18:30)
[2017-12-10] MEDS ORDERED: Vancomycin Consult Pharmacy 1 EA OTHER SCH (18:30)
[2017-12-10] MEDS ORDERED: METOCLOPRAMIDE HCL 10 MG/2 ML VIAL IV PUSH PRN (18:30)
[2017-12-10] MEDS ORDERED: SODIUM CHLORIDE 0.9% FLUSH 10 ML FLUSH IV FLUSH PRN ×2 (18:30)
[2017-12-10] MEDS ORDERED: SENNOSIDES 8.6 MG TAB PO PRN (18:30)
--- NOTE | 2017-12-10 19:25 | HHI.HP ---
HPI Service [facility] Primary Care Physician Unknown Admission Diagnosis Sepsis, htn, atrial fibrillation Diagnoses: (1) Sepsis Diagnosis: Principal (2) A-fib Diagnosis: Principal (3) Renal insufficiency Diagnosis: Principal (4) Hyperglycemia Diagnosis: Principal Travel History International Travel<30 Days: Yes Contact w/Intl Traveler <30 Da: Yes Name of Country Traveled to: [facility] via cruise ship. States he did not leave the boat Traveled to Known Affected Are: No History of Present Illness This is a 69-year-old male with a PMH of HTN, A. fib on Eliquis, Anxiety, CHF ( Echo 04/26/16 w/ EF 30-35%) and CAD who was brought to the ER for acute onset of shaking/rigors starting this afternoon. States he woke up from a nap and had sudden onset of shaking. No recent fever, chills, congestion. Pt reports chronic cough, non-productive. Upon EMS arrival, Temp 102.4. No nausea, vomiting, diarrhea or dysuria. On arrival, BP 145/67, HR 87, O2 sat 94% on RA, Temp 103.1. Creatinine 1.38, previously 1.30 on 09/13/2016. Lactic Acid 2.3. U /a negative for UTI. CXR w/ no acute infiltrate, cardiomegaly with mild interstitial prominence concerning for vascular congestion, unchanged from prior. S/p Blood Cultures, Vanc/Zosyn in ER. Follows w/ Dr. Dillard as outpatient. Review of Systems Except as stated in HPI: all other systems reviewed are Neg ROS: 14 point review of systems otherwise negative. Past Family Social History Past Medical History PMH: HTN, A. fib on Eliquis, Anxiety, CHF (Echo 04/26/16 w/ EF 30-35%) and CAD Past Surgical History PAST SURGICAL HISTORY: Appendectomy, Cardiac Stent, Cardiac Ablation, Cataract Surgery, Right Foot Surgery Allergies: Coded Allergies: No Known Allergies (Unverified , 07/23/16) Family History PAST FAMILY HISTORY: Reviewed. No h/o DM or CAD Social History PAST SOCIAL HISTORY: Negative for alcohol, tobacco or drugs. Physical Exam Vital Signs Vital Signs Date Time Temp Pulse Resp B/P (MAP) Pulse Ox O2 Delivery O2 Flow Rate FiO2 12/10/17 17:41 99.1 93 17 119/63 (81) 93 Nasal Cannula 2.00 12/10/17 16:15 94 Nasal Cannula 2.00 12/10/17 16:15 100 Nasal Cannula 2.00 12/10/17 16:07 87 94 Nasal Cannula 2.00 12/10/17 16:04 103.1 87 18 145/67 (93) 94 Physical Exam PE: GENERAL: Very pleasant elderly white male in no acute distress. at bedside. HEENT: PERRLA, EOMI. No scleral icterus or conjunctival pallor. No lid lag or facial droop. CARDIOVASCULAR: Regular rate and rhythm. No obvious murmurs to auscultation. No chest tenderness to palpation. RESPIRATORY: No obvious rhonchi or wheezing. Clear to auscultation. Breath sounds equal bilaterally. GASTROINTESTINAL: Abdomen soft, non-tender, nondistended. BS normal. MUSCULOSKELETAL: Extremities without clubbing, cyanosis, or edema. No obvious deformities. NEUROLOGICAL: Awake, alert and oriented x4. No focal neurologic deficits. Moving both upper and lower extremities spontaneously. Laboratory Laboratory Tests Test 12/10/17 16:20 12/10/17 16:22 12/10/17 16:50 White Blood Count 8.8 Red Blood Count 5.24 Hemoglobin 15.6 Hematocrit 45.6 Mean Corpuscular Volume 87.0 Mean Corpuscular Hemoglobin 29.8 Mean Corpuscular Hemoglobin Concent 34.2 Red Cell Distribution Width 13.9 Platelet Count 182 Mean Platelet Volume 6.8 Neutrophils (%) (Auto) 88.8 Lymphocytes (%) (Auto) 7.6 Monocytes (%) (Auto) 2.8 Eosinophils (%) (Auto) 0.5 Basophils (%) (Auto) 0.3 Neutrophils # (Auto) 7.8 Lymphocytes # (Auto) 0.7 Monocytes # (Auto) 0.3 Eosinophils # (Auto) 0.0 Basophils # (Auto) 0.0 CBC Comment DIFF FINAL Differential Comment Blood Urea Nitrogen 24 Creatinine 1.38 Random Glucose 113 Total Protein 8.1 Albumin 4.2 Calcium Level 9.4 Alkaline Phosphatase 70 Aspartate Amino Transf (AST/SGOT) 33 Alanine Aminotransferase (ALT/SGPT) 57 Total Bilirubin 0.5 Sodium Level 139 Potassium Level 3.8 Chloride Level 102 Carbon Dioxide Level 28.0 Anion Gap 9 Estimat Glomerular Filtration Rate 50 Lactic Acid Level 2.3 Urine Color LIGHT-YELLOW Urine Turbidity CLEAR Urine pH 5.0 Urine Specific [place] 1.010 Urine Protein NEG Urine Glucose (UA) NEG Urine Ketones NEG Urine Occult Blood TRACE Urine Nitrite NEG Urine Bilirubin NEG Urine Urobilinogen LESS THAN 2.0 Urine Leukocyte Esterase NEG Urine RBC 1 Urine Hyaline Casts 2 Microscopic Urinalysis Comment CATH-CULT NOT IND Date/Time Source Procedure Growth Status 12/10/17 16:25 Blood Peripheral Aerobic Blood Culture Pending Received 12/10/17 16:25 Blood Peripheral Anaerobic Blood Culture Pending Received 12/10/17 16:15 Nasal Aspirate Influenza Types A,B Antigen (CAL) - Final NEGATIVE FOR FLU A AND B ANTIGEN.... Complete 12/10/17 16:50 Urine Random Urine Legionella Antigen Pending Received Result Diagram: 12/10/17 1620 12/10/17 1620 Caprini VTE Risk Assessment Caprini VTE Risk Assessment: Mod/High Risk (score >= 2) Caprini Risk Assessment Model Point Value = 1 Point Value = 2 Point Value = 3 Point Value = 5 Age 41-60 Minor surgery BMI > 25 kg/m2 Swollen legs Varicose veins or History of unexplained or recurrent spontaneous Oral contraceptives or hormone replacement Sepsis (< 1 month) Serious lung disease, including pneumonia (< 1 month) Abnormal pulmonary function Acute myocardial infarction Congestive heart failure (< 1 month) History of inflammatory bowel disease Medical patient at bed rest Age 61-74 Arthroscopic surgery Major open surgery (> 45 min) Laparoscopic surgery (> 45 min) Malignancy Confined to bed (> 72 hours) Immobilizing plaster cast Central venous access Age >= 75 History of VTE Family history of VTE Factor V Leiden Prothrombin [id number] Lupus anticoagulant Anticardiolipin antibodies Elevated serum homocysteine Heparin-induced thrombocytopenia Other congenital or acquired thrombophilia Stroke (< 1 month) Elective arthroplasty Hip, pelvis, or leg fracture Acute spinal cord injury (< 1 month) Prophylaxis Regimen Total Risk Factor Score Risk Level Prophylaxis Regimen 0-1 Low Early ambulation 2 Moderate Order ONE of the following: *Sequential Compression Device (SCD) *Heparin 5000 units SQ BID 3-4 Higher Order ONE of the following medications: *Heparin 5000 units SQ TID *Enoxaparin/Lovenox 40 mg SQ daily (WT < 150 kg, CrCl > 30 mL/min) *Enoxaparin/Lovenox 30 mg SQ daily (WT < 150 kg, CrCl > 10-29 mL/min) *Enoxaparin/Lovenox 30 mg SQ BID (WT < 150 kg, CrCl > 30 mL/min) AND/OR *Sequential Compression Device (SCD) 5 or more Highest Order ONE of the following medications: *Heparin 5000 units SQ TID (Preferred with Epidurals) *Enoxaparin/Lovenox 40 mg SQ daily (WT < 150 kg, CrCl > 30 mL/min) *Enoxaparin/Lovenox 30 mg SQ daily (WT < 150 kg, CrCl > 10-29 mL/min) *Enoxaparin/Lovenox 30 mg SQ BID (WT < 150 kg, CrCl > 30 mL/min) AND *Sequential Compression Device (SCD) Assessment and Plan Problem List: (1) Sepsis ICD Code: A41.9 - Sepsis, unspecified organism Status: Acute (2) A-fib ICD Code: I48.91 - Unspecified atrial fibrillation Status: Chronic (3) Renal insufficiency ICD Code: N28.9 - Disorder of kidney and ureter, unspecified (4) Hyperglycemia ICD Code: R73.9 - Hyperglycemia, unspecified Assessment and Plan A/P: 1. Sepsis: Temp 102.4, HR 93, Lactic Acid 2.3, S/p Blood/Sputum Cultures, Vanc /Zosyn, will follow up cultures, continue IV Abx. CXR w/ no acute infiltrate noted, images reviewed by me. U/a negative for UTI. Repeat Lactic Acid, IVF 2. A-fib: Chronic, h/o Ablation x2 by Dr. Laura, follows w/ Dr. Dillard, resume home Amiodarone, Eliquis, Metoprolol, ASA. 3. Renal Insufficiency: RAY. Creatinine 1.38, previously 1.30, monitor I/O, caution w/ diuresis in light of renal insufficiency/IVF for sepsis. Repeat labs in am. 4. Hyperglycemia: Check Hgb A1c, sliding scale w/ Accu-cheks if needed. 5. DVT Prophylaxis: Eliquis 6. Social work for d/c planning as needed. 7. Case discussed w/ ER physician at length, labs/records/imaging reviewed by me. Physician Certification 2 Midnight Certification Type: Admission for Inpatient Services Order for Inpatient Services The services are ordered in accordance with Medicare regulations or non- Medicare payer requirements, as applicable. In the case of services not specified as inpatient-only, they are appropriately provided as inpatient services in accordance with the 2-midnight benchmark. Estimated LOS (days): 2 days is the estimated time the patient will need to remain in the hospital, assuming treatment plan goals are met and no additional complications. Post-Hospital Plan: Not yet determined Amparo Lobo MD Dec 10, 2017 19:25
[2017-12-10] MEDS ORDERED: PILL SPLITTER OTHER PRN (19:30)
[2017-12-10] MEDS ORDERED: PT:IPRATROPRIUM NASAL SPRAY NASAL PRN (19:45)
[2017-12-10] MEDS ORDERED: ENOXAPARIN SODIUM 40 MG/0.4 ML SYRINGE SQ SCH (20:00)
[2017-12-10] MEDS: methylPREDNISolone SOD SUCC 40 MG/1 ML VIAL IV PUSH SCH (20:54)
[2017-12-10] MEDS ORDERED: PT DULERA INH SCH (21:00)
[2017-12-10] MEDS: SODIUM CHLORIDE 0.9% FLUSH 10 ML FLUSH IV FLUSH SCH (21:00)
[2017-12-10] MEDS ORDERED: MOMETASONE FORMOTEROL INH SCH (21:00)
[2017-12-10] MEDS ORDERED: SODIUM CHLORIDE 0.9% FLUSH 10 ML FLUSH IV FLUSH SCH (21:00)
[2017-12-10] MEDS: POTASSIUM CHLORIDE 10 MEQ CONTROLLED RELEASE TAB PO SCH (21:48)
[2017-12-10] MEDS: guaiFENesin E.R. 600 MG TAB PO SCH (21:48)
[2017-12-10] MEDS: PRAVASTATIN SOD 80 MG TAB PO SCH (21:48)
[2017-12-10] MEDS: DOCUSATE SODIUM 50 MG/SENNA 8.6 MG TAB PO SCH (21:49)
[2017-12-10] MEDS: APIXABAN 5 MG TABLET PO SCH (21:49)
[2017-12-10 21:51] LABS: TROPONIN I LESS THAN 0.02 NG/ML (0.02-0.05)
[2017-12-10] MEDS ORDERED: RESP: ALBUTEROL 2.5 MG/IPRATROPIUM 0.5 MG NEB (SCH) INH (22:00)
[2017-12-10] MEDS: SODIUM CHLOR 0.9% 1000 ML INJ 1,000 ML IV SCH (22:13)
[2017-12-11] VITALS (12 sets, daily range): BP systolic 104–141; BP diastolic 55–69; PULSE 47–64; RESP 17–18; TEMP 97.6–98.2; O2SAT 92–98
[2017-12-11] MEDS: PIPERACIL-TAZO 4.5 GM PREMIX 100 ML IV SCH ×3 (01:29→11:46)
[2017-12-11 04:07] LABS: AUTOMATED NEUTROPHIL # 13.1 TH/MM3 (1.8-7.7); BASOPHIL % 0.1 % (0.0-2.0); HEMOGLOBIN 13.8 GM/DL (13.0-17.0); LYMPH % 5.2 % (9.0-44.0); LYMPHOCYTE # 0.7 TH/MM3 (1.0-4.8); MEAN CELL VOLUME 87.4 FL (80.0-100.0); MEAN CORPUSCULAR HEMOGLOBIN 30.1 PG (27.0-34.0); MEAN CORPUSCULAR HGB CONC 34.5 % (32.0-36.0); MEAN PLATELET VOLUME 6.9 FL (7.0-11.0); MONO % 0.8 % (0.0-8.0); MONOCYTE # 0.1 TH/MM3 (0-0.9); NEUT % 93.9 % (16.0-70.0); PLATELET COUNT 172 TH/MM3 (150-450); RED BLOOD COUNT 4.57 MIL/MM3 (4.50-5.90); RED CELL DISTRIBUTION WIDTH 13.7 % (11.6-17.2)
[2017-12-11 04:30] LABS: ALBUMIN 3.3 GM/DL (3.4-5.0); ALKALINE PHOSPHATASE 53 U/L (45-117); ALT (GPT) 47 U/L (12-78); AST (GOT) 24 U/L (15-37); BLOOD UREA NITROGEN 23 MG/DL (7-18); CALCIUM 8.1 MG/DL (8.5-10.1); CHLORIDE 108 MEQ/L (98-107); CREATININE 1.16 MG/DL (0.60-1.30); FREE T4 1.29 NG/DL (0.76-1.46); GLOMERULAR FILTRATION RATE 61 ML/MIN (>89); GLUCOSE,RANDOM 177 MG/DL (74-106); MAGNESIUM 2.2 MG/DL (1.5-2.5); PHOSPHORUS 2.8 MG/DL (2.5-4.9); SODIUM (NA) 142 MEQ/L (136-145); TOTAL BILIRUBIN ADULT 0.6 MG/DL (0.2-1.0); TOTAL PROTEIN 6.8 GM/DL (6.4-8.2); TROPONIN I 0.02 NG/ML (0.02-0.05)
[2017-12-11] MEDS: SODIUM CHLOR 0.9% 1000 ML INJ 1,000 ML IV SCH ×2 (05:46→10:11)
--- NOTE | 2017-12-11 08:34 | HHI.PR ---
Subjective Remarks This is a pleasant 69 y/o male with Hypertension, Atrial Fibrillation, on Eliquis, Anxiety disorder, CHF echo 04/26/16 EF 30-35%, has CAD, S/p Blood Cultures, Vanc/Zosyn in ER. Follows w/ Dr. Dillard as outpatient.he is been seen in his bedroom, discussed with nurse Positive blood culture for E Coli Bacteremia, asked for ID specialist consult no nausea, vomit or diarrhea. Objective Vital Signs Date Time Temp Pulse Resp B/P (MAP) Pulse Ox O2 Delivery O2 Flow Rate FiO2 12/11/17 07:03 Nasal Cannula 2.00 12/11/17 04:00 52 12/11/17 04:00 97.8 51 18 141/65 (90) 95 12/11/17 00:20 95 12/11/17 00:00 98.2 53 17 125/69 (87) 95 12/11/17 00:00 64 12/10/17 22:15 98.1 58 18 120/96 (104) 94 12/10/17 22:14 12/10/17 21:52 64 18 121/57 (78) 94 Nasal Cannula 2.00 12/10/17 20:21 94 Nasal Cannula 2.00 12/10/17 19:41 67 18 119/58 (78) 94 Nasal Cannula 2.00 12/10/17 17:41 99.1 93 17 119/63 (81) 93 Nasal Cannula 2.00 12/10/17 17:00 92 93 Nasal Cannula 12/10/17 16:15 94 Nasal Cannula 2.00 12/10/17 16:15 100 Nasal Cannula 2.00 12/10/17 16:07 87 94 Nasal Cannula 2.00 12/10/17 16:04 103.1 87 18 145/67 (93) 94 I/O 12/10/17 12/10/17 12/10/17 12/11/17 12/11/17 12/11/17 07:00 15:00 23:00 07:00 15:00 23:00 Intake Total 617 ml 0 ml Output Total 400 ml Balance 617 ml -400 ml Intake Oral 0 ml IV Total 617 ml Output Urine Total 400 ml # Bowel Movements 0 Result Diagram: 12/11/17 0322 12/11/17 0322 Imaging Last Impressions Chest X-Ray 12/10/17 1606 Signed Impressions: Service Date/Time: November 16:16 - CONCLUSION: 1. No acute infiltrate. 2. Cardiomegaly with mild interstitial prominence concerning for some degree of vascular congestion or volume overload, unchanged from prior. Yonatan Jang MD Procedures None Other Results Laboratory Tests Test 12/10/17 16:50 12/11/17 03:22 Urine Color LIGHT-YELLOW Urine Turbidity CLEAR Urine pH 5.0 Urine Specific [place] 1.010 Urine Protein NEG mg/dL Urine Glucose (UA) NEG mg/dL Urine Ketones NEG mg/dL Urine Occult Blood TRACE Urine Nitrite NEG Urine Bilirubin NEG Urine Urobilinogen LESS THAN 2.0 MG/DL Urine Leukocyte Esterase NEG Urine RBC 1 /hpf Urine Hyaline Casts 2 /lpf Microscopic Urinalysis Comment CATH-CULT NOT IND White Blood Count 14.0 TH/MM3 Red Blood Count 4.57 MIL/MM3 Hemoglobin 13.8 GM/DL Hematocrit 40.0 % Mean Corpuscular Volume 87.4 FL Mean Corpuscular Hemoglobin 30.1 PG Mean Corpuscular Hemoglobin Concent 34.5 % Red Cell Distribution Width 13.7 % Platelet Count 172 TH/MM3 Mean Platelet Volume 6.9 FL Neutrophils (%) (Auto) 93.9 % Lymphocytes (%) (Auto) 5.2 % Monocytes (%) (Auto) 0.8 % Eosinophils (%) (Auto) 0.0 % Basophils (%) (Auto) 0.1 % Neutrophils # (Auto) 13.1 TH/MM3 Lymphocytes # (Auto) 0.7 TH/MM3 Monocytes # (Auto) 0.1 TH/MM3 Eosinophils # (Auto) 0.0 TH/MM3 Basophils # (Auto) 0.0 TH/MM3 CBC Comment DIFF FINAL Differential Comment Blood Urea Nitrogen 23 MG/DL Creatinine 1.16 MG/DL Random Glucose 177 MG/DL Total Protein 6.8 GM/DL Albumin 3.3 GM/DL Calcium Level 8.1 MG/DL Phosphorus Level 2.8 MG/DL Magnesium Level 2.2 MG/DL Alkaline Phosphatase 53 U/L Aspartate Amino Transf (AST/SGOT) 24 U/L Alanine Aminotransferase (ALT/SGPT) 47 U/L Total Bilirubin 0.6 MG/DL Sodium Level 142 MEQ/L Potassium Level 4.0 MEQ/L Chloride Level 108 MEQ/L Carbon Dioxide Level 27.0 MEQ/L Anion Gap 7 MEQ/L Estimat Glomerular Filtration Rate 61 ML/MIN Lactic Acid Level 1.0 mmol/L Total Creatine Kinase 127 U/L Troponin I 0.02 NG/ML Free Thyroxine 1.29 NG/DL Thyroid Stimulating Hormone 3rd Gen 0.544 uIU/ML Objective Remarks GENERAL: No acute distress. Obesity HEENT: PERRLA, EOMI. No scleral icterus or conjunctival pallor. CARDIOVASCULAR: Regular rate and rhythm. No obvious murmurs to auscultation. No chest tenderness to palpation. RESPIRATORY: No obvious rhonchi or wheezing. Clear to auscultation. Breath sounds equal bilaterally. GASTROINTESTINAL: Abdomen soft, non-tender, nondistended. BS normal. MUSCULOSKELETAL: Extremities without clubbing, cyanosis, or edema. No obvious deformities. NEUROLOGICAL: Awake, alert and oriented x4. No focal neurologic deficits. Moving both upper and lower extremities spontaneously. Medications and IVs Current Medications Medications (Trade) Dose Ordered Sig/Quin Route Start Time Stop Time Status Last Admin Sodium Chloride 1,000 ml @ 100 mls/hr Q10H IV 12/10/17 20:00 12/11/17 05:46 Pharmacy Profile Note 0 ml @ 0 mls/hr UNSCH OTHER 12/10/17 18:30 (Tylenol) 650 mg Q4H PRN PO 12/10/17 18:30 (Zofran Inj) 4 mg Q6H PRN IV PUSH 12/10/17 18:30 (Duoneb Neb) 1 ampule Q4HR NEB PRN INH 12/10/17 18:30 (SoluMEDROL INJ) 40 mg Q12H IV PUSH 12/10/17 20:00 12/10/17 20:54 (NS Flush) 2 ml UNSCH PRN IV FLUSH 12/10/17 18:30 (NS Flush) 2 ml BID IV FLUSH 12/10/17 21:00 12/10/17 21:00 (Reglan Inj) 5 mg Q6H PRN IV PUSH 12/10/17 18:30 (Tylenol) 650 mg Q6H PRN PO 12/10/17 18:30 (Percocet 5-325 Mg) 1 tab Q6H PRN PO 12/10/17 18:30 (Percocet 10-325 Mg) 1 tab Q6H PRN PO 4/19/18 18:30 (Morphine Inj) 2 mg Q3H PRN IV PUSH 12/10/17 18:30 (Morphine Inj) 4 mg Q3H PRN IV PUSH 12/10/17 18:30 (Morphine Inj) 4 mg Q3H PRN IV PUSH 12/10/17 18:30 (Narcan Inj) 0.4 mg UNSCH PRN IV PUSH 12/10/17 18:30 (Benita-Colace) 1 tab BID PO 12/10/17 21:00 12/10/17 21:49 (Milk Of Magnesia Liq) 30 ml Q12H PRN PO 12/10/17 18:30 (Senokot) 17.2 mg Q12H PRN PO 12/10/17 18:30 (Dulcolax Supp) 10 mg DAILY PRN RECTAL 12/10/17 18:30 (Lactulose Liq) 30 ml DAILY PRN PO 12/10/17 18:30 (Cordarone) 200 mg DAILY PO 12/11/17 09:00 (Eliquis) 5 mg BID PO 12/10/17 21:00 12/10/17 21:49 (Ecotrin Ec) 162 mg DAILY PO 12/11/17 09:00 (Zetia) 10 mg DAILY PO 12/11/17 09:00 (Lopressor) 37.5 mg DAILY PO 12/11/17 09:00 (KCl) 10 meq BID PO 12/10/17 21:00 12/10/17 21:48 (Pravachol) 80 mg HS PO 12/10/17 21:00 12/10/17 21:48 (Flomax) 0.4 mg DAILY PO 12/11/17 09:00 (Mucinex Er) 600 mg BID PO 12/10/17 21:00 12/10/17 21:48 Piperacillin Sod/ Tazobactam Sod 100 ml @ 200 mls/hr Q6H IV 12/11/17 00:00 12/11/17 05:45 (Pill Splitter) 1 ea UNSCH PRN OTHER 12/10/17 19:30 Patient Own Medication PT OWN MED: IPRATROPRIUM NA... QID PRN NASAL 12/10/17 19:45 Future Hold Patient Own Medication PT OWN MED: DULERA--INHALE 1 PUFF BID BID INH 12/10/17 21:00 Future Hold Vancomycin HCl 1350 mg/Sodium Chloride 513.5 ml @ 250 mls/hr Q18H IV 12/11/17 14:00 Miscellaneous Information SPECIFIC LAB TO BE DRAWN:VANCO TROUGH DATE TO BE DRMaico.. ONCE ONCE .XX 12/13/17 01:45 12/13/17 01:46 A/P Assessment and Plan (1) Sepsis ICD Code: A41.9 - Sepsis, unspecified organism Status: Acute (2) A-fib ICD Code: I48.91 - Unspecified atrial fibrillation Status: Chronic (3) Renal insufficiency ICD Code: N28.9 - Disorder of kidney and ureter, unspecified (4) Hyperglycemia ICD Code: R73.9 - Hyperglycemia, unspecified 1. Sepsis: Temp 102.4, HR 93, Lactic Acid 2.3, S/p Blood/Sputum Cultures, Vanc /Zosyn, will follow up cultures, continue IV Abx. CXR w/ no acute infiltrate noted Blood culture positive for E coli. he was in a Cruise asked for ID specialist consult 2. A-fib: Chronic, h/o Ablation x2 by Dr. Laura, follows w/ Dr. Dillard, resume home Amiodarone, Eliquis, Metoprolol, ASA. 3. Renal Insufficiency: Improved. 4. Hyperglycemia: Check Hgb A1c 5.6, sliding scale, 5. Obesity strongly recommended diet and exercise 6. SERGE probable related to #1 on CPAP. strongly recommended weight loss. DVT Prophylaxis: Eliquis Discharge Planning Once cleared by ID specialist. Jc Busch MD Dec 11, 2017 08:34
[2017-12-11] MEDS: SODIUM CHLORIDE 0.9% FLUSH 10 ML FLUSH IV FLUSH SCH ×2 (09:00→22:00)
[2017-12-11] MEDS ORDERED: METOPROLOL TARTRATE 25 MG TAB PO SCH (09:00)
[2017-12-11] MEDS: EZETIMIBE 10 MG TAB PO SCH (09:09)
[2017-12-11] MEDS: TAMSULOSIN HCL 0.4 MG CAP PO SCH (09:10)
[2017-12-11] MEDS: DOCUSATE SODIUM 50 MG/SENNA 8.6 MG TAB PO SCH ×2 (09:10→21:00)
[2017-12-11] MEDS: AMIODARONE 200 MG TAB PO SCH (09:10)
[2017-12-11] MEDS: ASPIRIN EC 81 MG TABEC PO SCH (09:10)
[2017-12-11] MEDS: APIXABAN 5 MG TABLET PO SCH ×2 (09:11→21:59)
[2017-12-11] MEDS: guaiFENesin E.R. 600 MG TAB PO SCH ×2 (09:11→21:59)
[2017-12-11] MEDS: methylPREDNISolone SOD SUCC 40 MG/1 ML VIAL IV PUSH SCH ×2 (09:12→22:00)
[2017-12-11] MEDS: POTASSIUM CHLORIDE 10 MEQ CONTROLLED RELEASE TAB PO SCH ×2 (09:22→21:59)
[2017-12-11] MEDS ORDERED: VANCOMYCIN INJ 1,350 MG in SODIUM CHLORID 0.9% 500 ML INJ 500 ML IV SCH (14:00)
--- NOTE | 2017-12-11 14:16 | PD.ID.CON ---
History of Present Illness Service Infectious disease Consult Requested By Medicine service Reason for Consult Evaluation and management of E Coli bacteremia Primary Care Physician Unknown Diagnoses: History of Present Illness Patient seen and examined on behalf of Dr. Chacon This is a 77yo male with a PMHX of atrial fibrillation on Eliquis, CAD s/p previous SC and cardiac stent implantation and CHF (Echo 04/26/16 w/ EF 30-35%) who presented to [facility] ED with complaints of acute onset of shaking/ rigors. Patient states he was feeling a little tired yesterday and laid down to take a nap. He suddenly developed uncontrollable shaking and his called 911. When EMS arrived, patient had a temperature of 102.4. In the ED, patient had fever of 103.1 and was tachycardic. He had elevated lactic acid of 2.3. White count elevated at 14.0. Urinalysis was negative. CXR revealed no acute infiltrate, cardiomegaly with mild interstitial prominence concerning for vascular congestion, unchanged from prior exam. Blood cultures were obtained and patient was started empirically on IV Vancomycin and Zosyn. Patient has grown E coli in one bottle. Infectious disease consultation has been requested for evaluation and management of E Coli bacteremia. Patient seen and examined. His is at the bedside. He is afebrile. His lactic acid is now 1.0. Patient states he feels fine and wants to know when he can be discharged. He denies any recent illness prior to the shaking episode but does report one episode of diarrhea several days ago. He and his returned from a cruise one week ago. He has had a cardiac stent implanted in 2006 and screw placed in his right big toe 20 yrs ago. He denies any previous total joint replacements. He denies any previous mesh implantation. He does not have a pacemaker, AICD or loop recorder implanted. He reports chronic nonproductive cough that is unchanged. He denies any associated headache, neck pain, nausea, vomiting, chest pain, shortness of breath, hematuria, dysuria, hematochezia or melena. He has not had any recurrence of diarrhea since the one episode several days ago. (Lilli Mcfadden) Review of Systems Except as stated in HPI: all other systems reviewed are Neg (Lilli Mcfadden) Past Family Social History Allergies: Coded Allergies: No Known Allergies (Unverified , 07/23/16) Past Medical History CAD s/p previous SC and cardiac stent implant Atrial fibrillation on Eliquis Systolic CHF HTN HLD BPH SERGE on CPAP Past Surgical History Cardiac stent 2007 Screw right great toe Appendectomy Cataract sx Tonsillectomy Lipoma excision Reported Medications Metoprolol Tartrate 75 Mg Tab 37.5 Mg PO DAILY Restoril (Temazepam) 15 Mg Cap 15 Mg PO HS Glucosamine 1,500 Mg Tab 1,500 Mg PO DAILY Dulera 120 Act Inh (Mometasone-Formoterol 120 Act Inh) 100-5 Mcg/Act Inh 1 Puff INH BID Depo-Testosterone Inj (Testosterone Cypionate) Unknown Strength Inj Unknown Dose IM WEEKLY Co Q-10 (Coenzyme Q10 (Ubidecarenone)) 100 Mg Cap 100 Mg PO DAILY Vitamin D-1000 (Cholecalciferol) 1,000 Unit Tab 1,000 Units PO DAILY Centrum Silver Adult 50+ (Multiple Vitamins W/ Minerals) 0.4 Mg-300 Mcg-250 Mcg Tab 1 Tab PO DAILY Potassium Chloride ER (Potassium Chloride) 10 Meq Tab 10 Meq PO BID Ipratropium Nasal 0.03% [place] 1 [place] EACH NARE QID PRN Lasix (Furosemide) 40 Mg Tab 40 Mg PO BID Zetia (Ezetimibe) 10 Mg Tab 10 Mg PO DAILY Aspirin 81 (Aspirin) 81 Mg Tabdr 162 Mg PO DAILY Eliquis (Apixaban) 5 Mg Tab 5 Mg PO BID Amiodarone (Amiodarone HCl) 200 Mg Tab 200 Mg PO DAILY Tamsulosin (Tamsulosin HCl) 0.4 Mg Cap 0.4 Mg PO DAILY Pravastatin 80 Mg Tab 80 Mg PO HS Active Ordered Medications Current Medications Medications (Trade) Dose Ordered Sig/Quin Route Start Time Stop Time Status Last Admin Sodium Chloride 1,000 ml @ 100 mls/hr Q10H IV 12/10/17 20:00 12/11/17 10:11 Pharmacy Profile Note 0 ml @ 0 mls/hr UNSCH OTHER 12/10/17 18:30 (Tylenol) 650 mg Q4H PRN PO 12/10/17 18:30 (Zofran Inj) 4 mg Q6H PRN IV PUSH 12/10/17 18:30 (Duoneb Neb) 1 ampule Q4HR NEB PRN INH 12/10/17 18:30 (SoluMEDROL INJ) 40 mg Q12H IV PUSH 12/10/17 20:00 12/11/17 09:12 (NS Flush) 2 ml UNSCH PRN IV FLUSH 12/10/17 18:30 (NS Flush) 2 ml BID IV FLUSH 12/10/17 21:00 12/11/17 09:00 (Reglan Inj) 5 mg Q6H PRN IV PUSH 12/10/17 18:30 (Tylenol) 650 mg Q6H PRN PO 12/10/17 18:30 (Percocet 5-325 Mg) 1 tab Q6H PRN PO 12/10/17 18:30 (Percocet 10-325 Mg) 1 tab Q6H PRN PO 12/10/17 18:30 (Morphine Inj) 2 mg Q3H PRN IV PUSH 12/10/17 18:30 (Morphine Inj) 4 mg Q3H PRN IV PUSH 12/10/17 18:30 (Morphine Inj) 4 mg Q3H PRN IV PUSH 12/10/17 18:30 (Narcan Inj) 0.4 mg UNSCH PRN IV PUSH 12/10/17 18:30 (Benita-Colace) 1 tab BID PO 12/10/17 21:00 12/11/17 09:10 (Milk Of Magnesia Liq) 30 ml Q12H PRN PO 12/10/17 18:30 (Senokot) 17.2 mg Q12H PRN PO 12/10/17 18:30 (Dulcolax Supp) 10 mg DAILY PRN RECTAL 12/10/17 18:30 (Lactulose Liq) 30 ml DAILY PRN PO 12/10/17 18:30 (Cordarone) 200 mg DAILY PO 12/11/17 09:00 12/11/17 09:10 (Eliquis) 5 mg BID PO 12/10/17 21:00 12/11/17 09:11 (Ecotrin Ec) 162 mg DAILY PO 12/11/17 09:00 12/11/17 09:10 (Zetia) 10 mg DAILY PO 12/11/17 09:00 12/11/17 09:09 (KCl) 10 meq BID PO 12/10/17 21:00 12/11/17 09:22 (Pravachol) 80 mg HS PO 12/10/17 21:00 12/10/17 21:48 (Flomax) 0.4 mg DAILY PO 12/11/17 09:00 12/11/17 09:10 (Mucinex Er) 600 mg BID PO 12/10/17 21:00 12/11/17 09:11 Piperacillin Sod/ Tazobactam Sod 100 ml @ 200 mls/hr Q6H IV 12/11/17 00:00 12/11/17 11:46 (Pill Splitter) 1 ea UNSCH PRN OTHER 12/10/17 19:30 Patient Own Medication PT OWN MED: IPRATROPRIUM NA... QID PRN NASAL 12/10/17 19:45 Future Hold Patient Own Medication PT OWN MED: DULERA--INHALE 1 PUFF BID BID INH 12/10/17 21:00 Future Hold Vancomycin HCl 1350 mg/Sodium Chloride 513.5 ml @ 250 mls/hr Q18H IV 12/11/17 14:00 12/11/17 18:00 Miscellaneous Information SPECIFIC LAB TO BE DRAWN:VANCO TROUGH DATE TO BE DRMaico.. ONCE ONCE .XX 12/13/17 13:45 12/13/17 13:46 Vancomycin HCl 1750 mg/Sodium Chloride 517.5 ml @ 258.75 mls/ hr Q24H IV 12/12/17 14:00 Family History CAD Social History Patient quit smoking in 1962. He rarely drinks EtOH, 2 glasses red wine per year. He denies any illicit drug use. (Lilli Mcfadden) Physical Exam Vital Signs Vital Signs Date Time Temp Pulse Resp B/P (MAP) Pulse Ox O2 Delivery O2 Flow Rate FiO2 12/11/17 12:04 97.6 48 18 104/55 (71) 94 12/11/17 08:04 97.7 50 17 135/63 (87) 95 12/11/17 07:03 Nasal Cannula 2.00 12/11/17 04:00 52 12/11/17 04:00 97.8 51 18 141/65 (90) 95 12/11/17 00:20 95 12/11/17 00:00 98.2 53 17 125/69 (87) 95 12/11/17 00:00 64 12/10/17 22:15 98.1 58 18 120/96 (104) 94 12/10/17 22:14 12/10/17 21:52 64 18 121/57 (78) 94 Nasal Cannula 2.00 12/10/17 20:21 94 Nasal Cannula 2.00 12/10/17 19:41 67 18 119/58 (78) 94 Nasal Cannula 2.00 12/10/17 17:41 99.1 93 17 119/63 (81) 93 Nasal Cannula 2.00 12/10/17 17:00 92 93 Nasal Cannula 12/10/17 16:15 94 Nasal Cannula 2.00 12/10/17 16:15 100 Nasal Cannula 2.00 12/10/17 16:07 87 94 Nasal Cannula 2.00 12/10/17 16:04 103.1 87 18 145/67 (93) 94 Physical Exam GENERAL: This is a well-nourished, well-developed obese male patient, in no apparent distress. Awake and alert. is at the bedside. SKIN: No rashes, ecchymoses or lesions. Cool and dry. HEAD: Atraumatic. Normocephalic. No temporal or scalp tenderness. EYES: Pupils equal round and reactive. Extraocular motions intact. No scleral icterus. No injection or drainage. ENT: Nose without bleeding or purulent drainage. Throat without erythema, tonsillar hypertrophy or exudate. Uvula midline. Airway patent. MMM. NECK: Trachea midline. No lymphadenopathy. Supple, nontender, no meningeal signs. CARDIOVASCULAR: Bradycardic without murmurs, gallops, or rubs. RESPIRATORY: Clear to auscultation. Breath sounds equal bilaterally. No wheezes , rales, or rhonchi. GASTROINTESTINAL: Abdomen soft, non-tender, nondistended. No hepato-splenomegaly , or palpable masses. No guarding. MUSCULOSKELETAL: Extremities without clubbing, cyanosis, or edema. No joint tenderness, effusion, or edema noted. No calf tenderness. NEUROLOGICAL: Awake and alert. Cranial nerves II through XII grossly intact. Motor and sensory grossly within normal limits. No focal neurologic finding appreciated. Normal speech. PSYCHIATRIC: Appropriate mood and affect. Normal judgement and insight. Laboratory Laboratory Tests Test 12/10/17 16:20 12/10/17 16:22 12/10/17 16:50 12/10/17 20:58 White Blood Count 8.8 Red Blood Count 5.24 Hemoglobin 15.6 Hematocrit 45.6 Mean Corpuscular Volume 87.0 Mean Corpuscular Hemoglobin 29.8 Mean Corpuscular Hemoglobin Concent 34.2 Red Cell Distribution Width 13.9 Platelet Count 182 Mean Platelet Volume 6.8 Neutrophils (%) (Auto) 88.8 Lymphocytes (%) (Auto) 7.6 Monocytes (%) (Auto) 2.8 Eosinophils (%) (Auto) 0.5 Basophils (%) (Auto) 0.3 Neutrophils # (Auto) 7.8 Lymphocytes # (Auto) 0.7 Monocytes # (Auto) 0.3 Eosinophils # (Auto) 0.0 Basophils # (Auto) 0.0 CBC Comment DIFF FINAL Differential Comment Blood Urea Nitrogen 24 Creatinine 1.38 Random Glucose 113 Total Protein 8.1 Albumin 4.2 Calcium Level 9.4 Alkaline Phosphatase 70 Aspartate Amino Transf (AST/SGOT) 33 Alanine Aminotransferase (ALT/SGPT) 57 Total Bilirubin 0.5 Sodium Level 139 Potassium Level 3.8 Chloride Level 102 Carbon Dioxide Level 28.0 Anion Gap 9 Estimat Glomerular Filtration Rate 50 Lactic Acid Level 2.3 2.0 Urine Color LIGHT-YELLOW Urine Turbidity CLEAR Urine pH 5.0 Urine Specific [place] 1.010 Urine Protein NEG Urine Glucose (UA) NEG Urine Ketones NEG Urine Occult Blood TRACE Urine Nitrite NEG Urine Bilirubin NEG Urine Urobilinogen LESS THAN 2.0 Urine Leukocyte Esterase NEG Urine RBC 1 Urine Hyaline Casts 2 Microscopic Urinalysis Comment CATH-CULT NOT IND Total Creatine Kinase 90 Troponin I LESS THAN 0.02 Test 12/11/17 03:22 White Blood Count 14.0 Red Blood Count 4.57 Hemoglobin 13.8 Hematocrit 40.0 Mean Corpuscular Volume 87.4 Mean Corpuscular Hemoglobin 30.1 Mean Corpuscular Hemoglobin Concent 34.5 Red Cell Distribution Width 13.7 Platelet Count 172 Mean Platelet Volume 6.9 Neutrophils (%) (Auto) 93.9 Lymphocytes (%) (Auto) 5.2 Monocytes (%) (Auto) 0.8 Eosinophils (%) (Auto) 0.0 Basophils (%) (Auto) 0.1 Neutrophils # (Auto) 13.1 Lymphocytes # (Auto) 0.7 Monocytes # (Auto) 0.1 Eosinophils # (Auto) 0.0 Basophils # (Auto) 0.0 CBC Comment DIFF FINAL Differential Comment Blood Urea Nitrogen 23 Creatinine 1.16 Random Glucose 177 Total Protein 6.8 Albumin 3.3 Calcium Level 8.1 Phosphorus Level 2.8 Magnesium Level 2.2 Alkaline Phosphatase 53 Aspartate Amino Transf (AST/SGOT) 24 Alanine Aminotransferase (ALT/SGPT) 47 Total Bilirubin 0.6 Sodium Level 142 Potassium Level 4.0 Chloride Level 108 Carbon Dioxide Level 27.0 Anion Gap 7 Estimat Glomerular Filtration Rate 61 Lactic Acid Level 1.0 Total Creatine Kinase 127 Troponin I 0.02 Free Thyroxine 1.29 Thyroid Stimulating Hormone 3rd Gen 0.544 Date/Time Source Procedure Growth Status 12/10/17 16:25 Blood Peripheral Aerobic Blood Culture - Preliminary NO GROWTH IN 1 DAY Resulted 12/10/17 16:25 Blood Peripheral Anaerobic Blood Culture - Preliminary NO GROWTH IN 1 DAY Resulted 12/10/17 16:15 Nasal Aspirate Influenza Types A,B Antigen (CAL) - Final NEGATIVE FOR FLU A AND B ANTIGEN.... Complete 12/10/17 16:50 Urine Clean Catch Streptococcus pneumoniae Antigen (M - Final PRESUMPTIVE NEGATIVE FOR STREPTOCOCCU... Complete (Lilli Mcfadden) Result Diagram: 12/11/17 0322 12/11/17 0322 Imaging Last Impressions Chest X-Ray 12/10/17 1606 Signed Impressions: Service Date/Time: November 16:16 - CONCLUSION: 1. No acute infiltrate. 2. Cardiomegaly with mild interstitial prominence concerning for some degree of vascular congestion or volume overload, unchanged from prior. Yonatan Jang MD (Lilli Mcfadden) Assessment and Plan Assessment and Plan Severe sepsis with elevated WBC 14, tachycardia, fever 103.1, lactic acid of 2.3 and source of E Coli bacteremia -suspect food borne secondary to patients recent cruise -BCX + E Coli in 08/27 bottles -started empirically on IV Vanc and Zosyn CAD s/p previous SC and cardiac stent implant Atrial fibrillation on Eliquis Systolic CHF HTN HLD BPH SERGE on CPAP Obesity BMI 39.7 RECOMMENDATIONS: Repeat blood cultures Continue to follow blood cx until finalized Monitor white count Monitor fevers Monitor clinical progress Further recommendations to follow (Lilli Mcfadden) Assessment and Plan The exam, history, and the medical decision-making described in the above note were completed with the assistance of the mid-level provider. I reviewed and agree with the findings presented. I attest that I had a [id number] encounter with the patient on the same day, and personally performed and documented my assessment and findings in the medical record. Discussed with patient patient reports that he was on a cruise. Denies any history of nausea vomiting. Reports one episode of loose BM but no hematochezia or bright red per rectum. Last colonoscopy was 6 years back and reports having polyps. E. coli bacteremia 1 out of 4 bottles appears to be low-grade likely secondary to a GI process as urine cultures are negative Discussed with Dr. Lauren: re: EGD and Colonoscopy need. dw patient he is agreeable to get procedure while we wait for Blood cultures. DC Zosyn IV Start Ceftriaxone IV QT interval prolonged would like to avoid Levaquin given his cardiac history. Follow cultures Follow clinically Dr. Harrell to cover for me this weekend. (Tram Chacon MD) Lilli Mcfadden Dec 11, 2017 14:16 Tram Chacon MD Dec 11, 2017 20:11
[2017-12-11 15:03] LABS: HEMOGLOBIN A1C 5.9 % (4.3-6.0)
--- NOTE | 2017-12-11 15:11 | MB ---
cc: Kristian Murphy MD DATE: 12/11/2017 REASON FOR CONSULT: Evaluation for arrhythmia. HISTORY OF PRESENT ILLNESS: Martin Palumbo is a 77-year-old man followed by my colleague, Dr. Dillard. The patient is known to have coronary artery disease. The patient also has had atrial fibrillation and has had two stent procedures. He has been on amiodarone since 05/25/[address] Laura. He came in for the onset of fever and weakness. The source of the fever is unclear, but he has one blood culture already positive for E coli. The patient is already feeling much better today. Denies any angina, denies any shortness of breath. He has been noted to have significant sinus bradycardia on telemetry with heart rates down as low as 40 and his metoprolol has been discontinued. It looks like his dose of metoprolol prior to this admission was 75 mg, 1/2 tablet once a day and in addition to amiodarone 200 mg once a day. I cannot elicit any cardiac symptoms from the patient at the present time. PAST MEDICAL HISTORY: Includes: 1. Hypertension. 2. Sleep apnea which is treated. 3. Previous kidney stones which passed. 4. Morbid obesity. 5. Benign prostatic hypertrophy. 6. Atrial fibrillation status post an ablation on 04/30/2016 and 07/24/2016 including an ablation for atrial tachycardia, amiodarone use since 05/27/2016 and chronic Eliquis anticoagulation. 7. Hyperlipidemia, treated with Pravastatin 80 mg plus Zetia. 8. Coronary artery disease with a previous catheterization on 11/20/2016 showing an ejection fraction of 40%, 90% proximal LAD stenosis, 50% small diagonal branch disease, 30% ramus disease and a dominant circumflex artery that looked okay. 12/01/2016 had a 3.0 x 16 mm long Taxus stent at 16 atmospheres in the LAD itself. PAST MEDICAL HISTORY: Includes appendectomy, left knee arthroscopy, cataract surgery, bilateral foot surgery. SOCIAL HISTORY: Nonsmoker, nondrinker. FAMILY HISTORY: Negative for heart disease. PHYSICAL EXAMINATION: GENERAL: Exam reveals a morbidly obese white male who does not appear to be in acute distress. VITAL SIGNS: He was febrile at 103.1 yesterday at 4:04 p.m. VITAL SIGNS: Blood pressure is normal. His pulse rate initially was 80s and 90s, but last night it got into the 40s and metoprolol has been discontinued. HEENT: Unremarkable. NECK: Shows no JVD, no bruits. CHEST: Clear to auscultation. CARDIOVASCULAR: S1, S2, bradycardic. S1 is very soft. A 1/6 early peaking systolic ejection murmur. ABDOMEN: Soft, nontender. EXTREMITIES: No clubbing, cyanosis or edema. Peripheral pulses are intact. LABORATORY DATA: His EKGs have showed sinus bradycardia, first degree AV block and right bundle branch block. Troponins are negative x2. White count is elevated. Creatinine is 1.16. Lactic acid was elevated and is now down. Urinalysis was negative. Chest x-ray showing mild interstitial prominence and cardiomegaly. IMPRESSION: A 69-year-old man who appears to have coronary artery disease which is stable, history of previous atrial fibrillation, status post 2 ablations being maintained in sinus rhythm with amiodarone. He has had sinus bradycardia and now his beta eleonora has been discontinued. He is growing Escherichia coli out of one of his blood cultures, undoubtedly has sepsis but the source for sepsis is not clear. Overall, from a cardiac perspective he does not appear that bad off except for the bradycardia for which metoprolol has been discontinued. RECOMMENDATIONS: Agree with discontinuing the metoprolol. Other cardiac medicines have been continued. Further therapy to be determined. MD DENISE Ruiz/ANGELA , 02:37 PM , 03:10 PM
[2017-12-11] MEDS: cefTRIAXone INJ 2,000 MG in SODIUM CHLORIDE 0.9% INJ 100 ML IV SCH (17:57)
[2017-12-11] MEDS: PRAVASTATIN SOD 80 MG TAB PO SCH (21:59)
[2017-12-12] VITALS (10 sets, daily range): BP systolic 134–177; BP diastolic 63–81; PULSE 45–58; RESP 16–20; TEMP 97.3–98; O2SAT 91–96
[2017-12-12] MEDS: SODIUM CHLOR 0.9% 1000 ML INJ 1,000 ML IV SCH ×3 (02:41→20:56)
[2017-12-12] MEDS: methylPREDNISolone SOD SUCC 40 MG/1 ML VIAL IV PUSH SCH ×2 (08:41→20:47)
[2017-12-12] MEDS: guaiFENesin E.R. 600 MG TAB PO SCH ×2 (08:41→20:47)
[2017-12-12] MEDS: EZETIMIBE 10 MG TAB PO SCH (08:42)
[2017-12-12] MEDS: TAMSULOSIN HCL 0.4 MG CAP PO SCH (08:42)
[2017-12-12] MEDS: DOCUSATE SODIUM 50 MG/SENNA 8.6 MG TAB PO SCH ×2 (08:42→20:46)
[2017-12-12] MEDS: AMIODARONE 200 MG TAB PO SCH (08:42)
[2017-12-12] MEDS: APIXABAN 5 MG TABLET PO SCH (08:42)
--- NOTE | 2017-12-12 09:17 | EKG ---
Date Performed: 12/10/2017 Time Performed: 16:21:13 PTAGE: 77 years EKG: Sinus rhythm WITH FIRST DEGREE AV BLOCK RIGHT BUNDLE BRANCH BLOCK ABNORMAL ECG PREVIOUS TRACING : 09/13/2016 12.15 DOCTOR: Marisel Laura Interpretating Date/Time 12/12/2017 09:12:31
[2017-12-12] MEDS: ASPIRIN EC 81 MG TABEC PO SCH (09:25)
[2017-12-12] MEDS: SODIUM CHLORIDE 0.9% FLUSH 10 ML FLUSH IV FLUSH SCH ×2 (09:25→20:48)
[2017-12-12] MEDS: POTASSIUM CHLORIDE 10 MEQ CONTROLLED RELEASE TAB PO SCH ×2 (09:26→20:47)
--- NOTE | 2017-12-12 09:42 | HHI.PR ---
Subjective Remarks This is a pleasant 69 y/o male with Hypertension, Atrial Fibrillation, on Eliquis, Anxiety disorder, CHF echo 04/26/16 EF 30-35%, has CAD, S/p Blood Cultures, Vanc/Zosyn in ER. Follows w/ Dr. Dillard as outpatient.he is been seen in his bedroom, discussed with nurse Positive blood culture for E Coli Bacteremia, asked for ID specialist consult. 12/12: Stable in his bedroom, Bacteremia secondary to E Coli, as per ID specialist probable related to recent Cruise. following. no nausea, vomit or diarrhea. Objective Vital Signs Date Time Temp Pulse Resp B/P (MAP) Pulse Ox O2 Delivery O2 Flow Rate FiO2 12/12/17 04:00 97.3 50 17 138/64 (88) 95 12/12/17 04:00 46 12/12/17 00:00 48 12/12/17 00:00 98.0 49 16 134/63 (86) 96 12/11/17 23:02 95 Nasal Cannula 2.00 12/11/17 20:00 97.9 51 17 139/62 (87) 92 12/11/17 20:00 Nasal Cannula 2.00 12/11/17 20:00 59 12/11/17 16:04 98.2 47 18 120/65 (83) 98 12/11/17 16:00 47 12/11/17 12:04 97.6 48 18 104/55 (71) 94 12/11/17 12:00 49 I/O 12/11/17 12/11/17 12/11/17 12/12/17 12/12/17 12/12/17 07:00 15:00 23:00 07:00 15:00 23:00 Intake Total 0 ml 720 ml 960 ml Output Total 400 ml 450 ml 700 ml Balance -400 ml 270 ml 260 ml Intake Oral 0 ml 720 ml 960 ml Output Urine Total 400 ml 450 ml 700 ml # Bowel Movements 0 0 1 Result Diagram: 12/11/17 0322 12/11/17 0322 Imaging Last Impressions Chest X-Ray 12/10/17 1606 Signed Impressions: Service Date/Time: November 16:16 - CONCLUSION: 1. No acute infiltrate. 2. Cardiomegaly with mild interstitial prominence concerning for some degree of vascular congestion or volume overload, unchanged from prior. Yonatan Jang MD Procedures None Other Results Laboratory Tests Test 12/10/17 16:50 12/11/17 03:22 Urine Color LIGHT-YELLOW Urine Turbidity CLEAR Urine pH 5.0 Urine Specific [place] 1.010 Urine Protein NEG mg/dL Urine Glucose (UA) NEG mg/dL Urine Ketones NEG mg/dL Urine Occult Blood TRACE Urine Nitrite NEG Urine Bilirubin NEG Urine Urobilinogen LESS THAN 2.0 MG/DL Urine Leukocyte Esterase NEG Urine RBC 1 /hpf Urine Hyaline Casts 2 /lpf Microscopic Urinalysis Comment CATH-CULT NOT IND White Blood Count 14.0 TH/MM3 Red Blood Count 4.57 MIL/MM3 Hemoglobin 13.8 GM/DL Hematocrit 40.0 % Mean Corpuscular Volume 87.4 FL Mean Corpuscular Hemoglobin 30.1 PG Mean Corpuscular Hemoglobin Concent 34.5 % Red Cell Distribution Width 13.7 % Platelet Count 172 TH/MM3 Mean Platelet Volume 6.9 FL Neutrophils (%) (Auto) 93.9 % Lymphocytes (%) (Auto) 5.2 % Monocytes (%) (Auto) 0.8 % Eosinophils (%) (Auto) 0.0 % Basophils (%) (Auto) 0.1 % Neutrophils # (Auto) 13.1 TH/MM3 Lymphocytes # (Auto) 0.7 TH/MM3 Monocytes # (Auto) 0.1 TH/MM3 Eosinophils # (Auto) 0.0 TH/MM3 Basophils # (Auto) 0.0 TH/MM3 CBC Comment DIFF FINAL Differential Comment Blood Urea Nitrogen 23 MG/DL Creatinine 1.16 MG/DL Random Glucose 177 MG/DL Total Protein 6.8 GM/DL Albumin 3.3 GM/DL Calcium Level 8.1 MG/DL Phosphorus Level 2.8 MG/DL Magnesium Level 2.2 MG/DL Alkaline Phosphatase 53 U/L Aspartate Amino Transf (AST/SGOT) 24 U/L Alanine Aminotransferase (ALT/SGPT) 47 U/L Total Bilirubin 0.6 MG/DL Sodium Level 142 MEQ/L Potassium Level 4.0 MEQ/L Chloride Level 108 MEQ/L Carbon Dioxide Level 27.0 MEQ/L Anion Gap 7 MEQ/L Estimat Glomerular Filtration Rate 61 ML/MIN Hemoglobin A1c 5.9 % Lactic Acid Level 1.0 mmol/L Total Creatine Kinase 127 U/L Troponin I 0.02 NG/ML Free Thyroxine 1.29 NG/DL Thyroid Stimulating Hormone 3rd Gen 0.544 uIU/ML Objective Remarks GENERAL: No acute distress. Obesity HEENT: PERRLA, EOMI. No scleral icterus or conjunctival pallor. CARDIOVASCULAR: Regular rate and rhythm. No obvious murmurs to auscultation. No chest tenderness to palpation. RESPIRATORY: No obvious rhonchi or wheezing. Clear to auscultation. Breath sounds equal bilaterally. GASTROINTESTINAL: Abdomen soft, non-tender, nondistended. BS normal. MUSCULOSKELETAL: Extremities without clubbing, cyanosis, or edema. No obvious deformities. NEUROLOGICAL: Awake, alert and oriented x4. No focal neurologic deficits. Moving both upper and lower extremities spontaneously. Medications and IVs Current Medications Medications (Trade) Dose Ordered Sig/Quin Route Start Time Stop Time Status Last Admin Sodium Chloride 1,000 ml @ 100 mls/hr Q10H IV 12/10/17 20:00 12/12/17 02:41 (Tylenol) 650 mg Q4H PRN PO 12/10/17 18:30 (Zofran Inj) 4 mg Q6H PRN IV PUSH 12/10/17 18:30 (Duoneb Neb) 1 ampule Q4HR NEB PRN INH 12/10/17 18:30 (SoluMEDROL INJ) 40 mg Q12H IV PUSH 12/10/17 20:00 12/12/17 08:41 (NS Flush) 2 ml UNSCH PRN IV FLUSH 12/10/17 18:30 (NS Flush) 2 ml BID IV FLUSH 12/10/17 21:00 12/12/17 09:25 (Reglan Inj) 5 mg Q6H PRN IV PUSH 12/10/17 18:30 (Tylenol) 650 mg Q6H PRN PO 12/10/17 18:30 (Percocet 5-325 Mg) 1 tab Q6H PRN PO 12/10/17 18:30 (Percocet 10-325 Mg) 1 tab Q6H PRN PO 12/10/17 18:30 (Morphine Inj) 2 mg Q3H PRN IV PUSH 12/10/17 18:30 (Morphine Inj) 4 mg Q3H PRN IV PUSH 12/10/17 18:30 (Morphine Inj) 4 mg Q3H PRN IV PUSH 12/10/17 18:30 (Narcan Inj) 0.4 mg UNSCH PRN IV PUSH 12/10/17 18:30 (Benita-Colace) 1 tab BID PO 12/10/17 21:00 12/12/17 08:42 (Milk Of Magnesia Liq) 30 ml Q12H PRN PO 12/10/17 18:30 (Senokot) 17.2 mg Q12H PRN PO 12/10/17 18:30 (Dulcolax Supp) 10 mg DAILY PRN RECTAL 12/10/17 18:30 (Lactulose Liq) 30 ml DAILY PRN PO 12/10/17 18:30 (Cordarone) 200 mg DAILY PO 12/11/17 09:00 12/12/17 08:42 (Eliquis) 5 mg BID PO 12/10/17 21:00 12/12/17 08:42 (Ecotrin Ec) 162 mg DAILY PO 12/11/17 09:00 12/12/17 09:25 (Zetia) 10 mg DAILY PO 12/11/17 09:00 12/12/17 08:42 (KCl) 10 meq BID PO 12/10/17 21:00 12/12/17 09:26 (Pravachol) 80 mg HS PO 12/10/17 21:00 12/11/17 21:59 (Flomax) 0.4 mg DAILY PO 12/11/17 09:00 12/12/17 08:42 (Mucinex Er) 600 mg BID PO 12/10/17 21:00 12/12/17 08:41 (Pill Splitter) 1 ea UNSCH PRN OTHER 12/10/17 19:30 Patient Own Medication PT OWN MED: IPRATROPRIUM NA... QID PRN NASAL 12/10/17 19:45 Future Hold Patient Own Medication PT OWN MED: DULERA--INHALE 1 PUFF BID BID INH 12/10/17 21:00 Future Hold Ceftriaxone Sodium 2000 mg/ Sodium Chloride 100 ml @ 200 mls/hr Q24H IV 12/11/17 17:00 12/11/17 17:57 A/P Assessment and Plan (1) Sepsis ICD Code: A41.9 - Sepsis, unspecified organism Status: Acute (2) A-fib ICD Code: I48.91 - Unspecified atrial fibrillation Status: Chronic (3) Renal insufficiency ICD Code: N28.9 - Disorder of kidney and ureter, unspecified (4) Hyperglycemia ICD Code: R73.9 - Hyperglycemia, unspecified 1. Sepsis: Temp 102.4, HR 93, Lactic Acid 2.3, S/p Blood/Sputum Cultures, Vanc /Zosyn, will follow up cultures, continue IV Abx. CXR w/ no acute infiltrate noted Blood culture positive for E coli. he was in a Cruise asked for ID specialist following. 2. A-fib: Chronic, h/o Ablation x2 by Dr. Laura, follows w/ Dr. Dillard, resume home Amiodarone, Eliquis, Metoprolol, ASA. 3. Renal Insufficiency: Improved. 4. Hyperglycemia: Check Hgb A1c 5.6, sliding scale, 5. Obesity strongly recommended diet and exercise 6. SERGE probable related to #1 on CPAP. strongly recommended weight loss. DVT Prophylaxis: Eliquis Discharge Planning Once cleared by ID specialist. Jc Busch MD Dec 12, 2017 09:42
--- NOTE | 2017-12-12 10:27 | PD.CONS ---
HPI History of Present Illness This is a 77 year old M who presented to the ER two days ago with complaints of chills and fevers. Pt was found to have E coli bacteremia and our service has been consulted to further evaluate. Of note, pt recently on cruise to the [facility]. Pt denies nausea, vomiting, abdominal pain, constipation, diarrhea, blood in his stool, unintentional weight loss. Had one BM this morning that he states was dark but states dark brown. Reports occasional acid reflux, takes Nexium which normally controls symptoms. Last colonoscopy and EGD approximately 6 years ago, he states one polyp otherwise exams were normal. Occasional ETOH. Denies smoking. Denies family history of colon cancer. Of note, pt on Eliquis for history of a-fib. PFSH Past Medical History PMH: HTN, A. fib on Eliquis, Anxiety, CHF (Echo 04/26/16 w/ EF 30-35%) and CAD Past Surgical History PAST SURGICAL HISTORY: Appendectomy, Cardiac Stent, Cardiac Ablation, Cataract Surgery, Right Foot Surgery Coded Allergies: No Known Allergies (Unverified , 07/23/16) Family History PAST FAMILY HISTORY: Reviewed. No h/o DM or CAD Social History PAST SOCIAL HISTORY: Occasional alcohol Denies tobacco or drugs. Review of Systems Gastrointestinal: DENIES: Abdominal pain, Black stools, Bloody stools, Constipation, Diarrhea, Nausea, Vomiting, Difficulty Swallowing, Anorexia, Odynophagia, Swelling of Abdomen, Heartburn, Hematemesis GI Exam Vitals I&O Vital Signs Date Time Temp Pulse Resp B/P (MAP) Pulse Ox O2 Delivery O2 Flow Rate FiO2 12/12/17 04:00 97.3 50 17 138/64 (88) 95 12/12/17 04:00 46 12/12/17 00:00 48 12/12/17 00:00 98.0 49 16 134/63 (86) 96 12/11/17 23:02 95 Nasal Cannula 2.00 12/11/17 20:00 97.9 51 17 139/62 (87) 92 12/11/17 20:00 Nasal Cannula 2.00 12/11/17 20:00 59 12/11/17 16:04 98.2 47 18 120/65 (83) 98 12/11/17 16:00 47 12/11/17 12:04 97.6 48 18 104/55 (71) 94 12/11/17 12:00 49 I/O 12/11/17 12/11/17 12/11/17 12/12/17 12/12/17 12/12/17 07:00 15:00 23:00 07:00 15:00 23:00 Intake Total 0 ml 720 ml 960 ml Output Total 400 ml 450 ml 700 ml Balance -400 ml 270 ml 260 ml Intake Oral 0 ml 720 ml 960 ml Output Urine Total 400 ml 450 ml 700 ml # Bowel Movements 0 0 1 Imaging Last Impressions Chest X-Ray 12/10/17 1606 Signed Impressions: Service Date/Time: , December 10, 2017 16:16 - CONCLUSION: 1. No acute infiltrate. 2. Cardiomegaly with mild interstitial prominence concerning for some degree of vascular congestion or volume overload, unchanged from prior. Yonatan Jang MD Laboratory Date/Time Source Procedure Growth Status 12/11/17 16:10 Blood Peripheral Aerobic Blood Culture Pending Received 12/11/17 16:10 Blood Peripheral Anaerobic Blood Culture Pending Received 12/10/17 16:15 Nasal Aspirate Influenza Types A,B Antigen (CAL) - Final NEGATIVE FOR FLU A AND B ANTIGEN.... Complete 12/10/17 16:50 Urine Clean Catch Streptococcus pneumoniae Antigen (M - Final PRESUMPTIVE NEGATIVE FOR STREPTOCOCCU... Complete Physical Examination HEENT: Normocephalic; atraumatic CHEST: Even/unlabored CARDIAC: RRR ABDOMEN: Soft, nondistended, nontender; bowel sounds active EXTREMITIES: No clubbing, cyanosis, or edema. SKIN: Normal; no rash; no jaundice. SMUTTER: No focal deficits; alert and oriented times three. Assessment and Plan Plan Assessment: - E Coli bacteremia- ID consulted our service to further evaluate Of note, recent travel to [facility] Pt denies any GI symptoms except occasional acid reflux, fairly well controlled with Nexium Last colonoscopy and EGD 6 years ago, states polyp, otherwise normal exams - History of a-fib- On Eliquis- seen by cardiology Plan: Colonoscopy Thursday Obtain consent Clear liquids tomorrow GoLytely prep NPO after MN Thursday Abx per ID Hold Eliquis for procedures Further recommendations based on findings of above Pt has been seen and examined by myself and Dr. Archibald and this note is written on his behalf Bonnette,Gricelda TOURIST AGENT Dec 12, 2017 10:27
[2017-12-12] MEDS ORDERED: VANCOMYCIN INJ 1,750 MG in SODIUM CHLORID 0.9% 500 ML INJ 500 ML IV SCH (14:00)
[2017-12-12] MEDS: cefTRIAXone INJ 2,000 MG in SODIUM CHLORIDE 0.9% INJ 100 ML IV SCH (16:56)
--- NOTE | 2017-12-12 17:08 | MB ---
cc: Marisel Laura MD, Hanscy MD Bratu, Beatrice S MD Sanchez Delacruz,Jc PINK DATE: 12/12/2017 REASON FOR CONSULTATION: Heart failure, history of atrial fibrillation. HISTORY OF PRESENT ILLNESS: Mr. Palumbo is a 77-year-old gentleman with history of high blood pressure, atrial fibrillation, coronary artery disease, had previous CTA atrial fibrillation ablation, currently in sinus rhythm,, morbid obesity, sleep apnea admitted due to fever and chills. The patient has E. coli bacteremia. Antibiotic was initiated. I was consulted for further evaluation and management. A colonoscopy is scheduled. The chart was reviewed. The patient was evaluated. ALLERGIES: None. SOCIAL HISTORY: Drinks occasionally. FAMILY HISTORY: Noncontributory to his current medical condition. MEDICATIONS: Currently Mr. Palumbo is on 1. Tamsulosin 0.4 mg a day. 2. Eliquis 5 mg twice a day. 3. Amiodarone 200 mg a day. 4. Zetia 10 mg a day. 5. Pravachol 80 mg a day. 6. Metoprolol 75 mg a day. 7. Aspirin 81 mg a day. 8. Temazepam p.r.n. 9. Lasix 40 mg twice a day. 10. Testosterone. 11. Coenzyme Q. 12. During hospitalization, Rocephin was added as well as vancomycin. REVIEW OF SYSTEMS: Currently, he referred feeling better. No chest pain. No fever. PHYSICAL EXAMINATION: GENERAL: Alert, fully oriented. VITAL SIGNS: His blood pressure is 161/77, pulse 52, respiratory rate 18. LUNGS: Ventilated. CARDIOVASCULAR: S1, S2. Regular. No gallop. ABDOMEN: Obese. No mass. No bruits. EXTREMITIES: No edema. CARDIOLOGY STUDIES: Electrocardiogram - Sinus rhythm, first-degree AV block, right bundle branch block. Diffuse ST changes. LABORATORY DATA: Hemoglobin 13.8, white blood cell 14. Potassium 4.0, creatinine 1.16. Troponin less than 0.02. ASSESSMENT AND RECOMMENDATIONS: Mr. Palumbo is currently cardiovascular wire is stable. His blood pressure is very high. The metoprolol was discontinued because of the low heart rate. I am going to initiate amlodipine 10 mg a day. We will continue on current medication. A colonoscopy scheduled for Thursday. for the procedure. Case extensively discussed with the patient. I will follow him during hospitalization. Okay to stop Eliquis for 48 hours before colonoscopy. MD PITO Bonilla/ , 04:47 PM , 05:07 PM
[2017-12-12] MEDS: PRAVASTATIN SOD 80 MG TAB PO SCH (20:47)
[2017-12-13] VITALS (7 sets, daily range): BP systolic 118–176; BP diastolic 58–81; PULSE 44–70; RESP 16–20; TEMP 97.5–98.3; O2SAT 92–98
[2017-12-13] MEDS: SODIUM CHLOR 0.9% 1000 ML INJ 1,000 ML IV SCH ×2 (08:00→16:42)
[2017-12-13] MEDS: SODIUM CHLORIDE 0.9% FLUSH 10 ML FLUSH IV FLUSH SCH ×2 (08:40→21:00)
[2017-12-13] MEDS: methylPREDNISolone SOD SUCC 40 MG/1 ML VIAL IV PUSH SCH ×2 (08:43→21:08)
[2017-12-13] MEDS: EZETIMIBE 10 MG TAB PO SCH (08:43)
[2017-12-13] MEDS: DOCUSATE SODIUM 50 MG/SENNA 8.6 MG TAB PO SCH ×2 (08:43→21:00)
[2017-12-13] MEDS: AMIODARONE 200 MG TAB PO SCH (08:43)
[2017-12-13] MEDS: TAMSULOSIN HCL 0.4 MG CAP PO SCH (08:43)
[2017-12-13] MEDS: guaiFENesin E.R. 600 MG TAB PO SCH ×2 (08:43→21:09)
[2017-12-13] MEDS: ASPIRIN EC 81 MG TABEC PO SCH (08:44)
[2017-12-13] MEDS: POTASSIUM CHLORIDE 10 MEQ CONTROLLED RELEASE TAB PO SCH ×2 (08:45→21:09)
--- NOTE | 2017-12-13 08:47 | HHI.PR ---
Subjective Remarks This is a pleasant 69 y/o male with Hypertension, Atrial Fibrillation, on Eliquis, Anxiety disorder, CHF echo 04/26/16 EF 30-35%, has CAD, S/p Blood Cultures, Vanc/Zosyn in ER. Follows w/ Dr. Dillard as outpatient.he is been seen in his bedroom, discussed with nurse Positive blood culture for E Coli Bacteremia, asked for ID specialist consult. 12/13: Stable in his bedroom, Bacteremia secondary to E Coli, as per ID specialist probable related to recent Cruise. grounds and nursery specialist following, removed Metoprolol and added Amlodipine, no nausea, vomit or diarrhea , asked by GI specialist for Colonoscopy tomorrow. Objective Vital Signs Date Time Temp Pulse Resp B/P (MAP) Pulse Ox O2 Delivery O2 Flow Rate FiO2 12/13/17 04:00 97.6 48 20 171/79 (109) 96 12/13/17 04:00 44 12/13/17 04:00 Room Air Bi-Pap 12/13/17 00:00 47 12/13/17 00:00 98.0 48 20 118/58 (78) 98 12/13/17 00:00 Bi-Pap 12/12/17 20:00 49 12/12/17 20:00 Room Air Bi-Pap 12/12/17 20:00 97.5 50 20 177/81 (113) 96 12/12/17 18:04 45 12/12/17 18:04 94 Room Air 12/12/17 16:00 97.8 49 17 147/70 (95) 94 12/12/17 15:21 50 12/12/17 15:21 96 Room Air 12/12/17 12:10 96 12/12/17 12:00 97.8 52 17 161/77 (105) 91 12/12/17 10:18 58 12/12/17 10:18 94 Room Air I/O 12/12/17 12/12/17 12/12/17 12/13/17 12/13/17 12/13/17 07:00 15:00 23:00 07:00 15:00 23:00 Intake Total 960 ml 1960 ml 1280 ml Output Total 700 ml Balance 260 ml 1960 ml 1280 ml Intake Oral 960 ml 960 ml 380 ml IV Total 1000 ml 900 ml Output Urine Total 700 ml # Voids 2 # Bowel Movements 1 1 Result Diagram: 12/11/17 0322 12/11/17 0322 Imaging Last Impressions Chest X-Ray 12/10/17 1606 Signed Impressions: Service Date/Time: November 16:16 - CONCLUSION: 1. No acute infiltrate. 2. Cardiomegaly with mild interstitial prominence concerning for some degree of vascular congestion or volume overload, unchanged from prior. Yonatan Jang MD Procedures None Other Results Laboratory Tests Test 12/10/17 16:50 12/11/17 03:22 Urine Color LIGHT-YELLOW Urine Turbidity CLEAR Urine pH 5.0 Urine Specific [place] 1.010 Urine Protein NEG mg/dL Urine Glucose (UA) NEG mg/dL Urine Ketones NEG mg/dL Urine Occult Blood TRACE Urine Nitrite NEG Urine Bilirubin NEG Urine Urobilinogen LESS THAN 2.0 MG/DL Urine Leukocyte Esterase NEG Urine RBC 1 /hpf Urine Hyaline Casts 2 /lpf Microscopic Urinalysis Comment CATH-CULT NOT IND White Blood Count 14.0 TH/MM3 Red Blood Count 4.57 MIL/MM3 Hemoglobin 13.8 GM/DL Hematocrit 40.0 % Mean Corpuscular Volume 87.4 FL Mean Corpuscular Hemoglobin 30.1 PG Mean Corpuscular Hemoglobin Concent 34.5 % Red Cell Distribution Width 13.7 % Platelet Count 172 TH/MM3 Mean Platelet Volume 6.9 FL Neutrophils (%) (Auto) 93.9 % Lymphocytes (%) (Auto) 5.2 % Monocytes (%) (Auto) 0.8 % Eosinophils (%) (Auto) 0.0 % Basophils (%) (Auto) 0.1 % Neutrophils # (Auto) 13.1 TH/MM3 Lymphocytes # (Auto) 0.7 TH/MM3 Monocytes # (Auto) 0.1 TH/MM3 Eosinophils # (Auto) 0.0 TH/MM3 Basophils # (Auto) 0.0 TH/MM3 CBC Comment DIFF FINAL Differential Comment Blood Urea Nitrogen 23 MG/DL Creatinine 1.16 MG/DL Random Glucose 177 MG/DL Total Protein 6.8 GM/DL Albumin 3.3 GM/DL Calcium Level 8.1 MG/DL Phosphorus Level 2.8 MG/DL Magnesium Level 2.2 MG/DL Alkaline Phosphatase 53 U/L Aspartate Amino Transf (AST/SGOT) 24 U/L Alanine Aminotransferase (ALT/SGPT) 47 U/L Total Bilirubin 0.6 MG/DL Sodium Level 142 MEQ/L Potassium Level 4.0 MEQ/L Chloride Level 108 MEQ/L Carbon Dioxide Level 27.0 MEQ/L Anion Gap 7 MEQ/L Estimat Glomerular Filtration Rate 61 ML/MIN Hemoglobin A1c 5.9 % Lactic Acid Level 1.0 mmol/L Total Creatine Kinase 127 U/L Troponin I 0.02 NG/ML Free Thyroxine 1.29 NG/DL Thyroid Stimulating Hormone 3rd Gen 0.544 uIU/ML Objective Remarks GENERAL: No acute distress. Obesity HEENT: PERRLA, EOMI. No scleral icterus or conjunctival pallor. CARDIOVASCULAR: Regular rate and rhythm. No obvious murmurs to auscultation. No chest tenderness to palpation. RESPIRATORY: No obvious rhonchi or wheezing. Clear to auscultation. Breath sounds equal bilaterally. GASTROINTESTINAL: Abdomen soft, non-tender, nondistended. BS normal. MUSCULOSKELETAL: Extremities without clubbing, cyanosis, or edema. No obvious deformities. NEUROLOGICAL: Awake, alert and oriented x4. No focal neurologic deficits. Medications and IVs Current Medications Medications (Trade) Dose Ordered Sig/Quin Route Start Time Stop Time Status Last Admin Sodium Chloride 1,000 ml @ 100 mls/hr Q10H IV 12/10/17 20:00 12/13/17 08:00 (Tylenol) 650 mg Q4H PRN PO 12/10/17 18:30 (Zofran Inj) 4 mg Q6H PRN IV PUSH 12/10/17 18:30 (Duoneb Neb) 1 ampule Q4HR NEB PRN INH 12/10/17 18:30 (SoluMEDROL INJ) 40 mg Q12H IV PUSH 12/10/17 20:00 12/13/17 08:43 (NS Flush) 2 ml UNSCH PRN IV FLUSH 12/10/17 18:30 (NS Flush) 2 ml BID IV FLUSH 12/10/17 21:00 12/12/17 20:48 (Reglan Inj) 5 mg Q6H PRN IV PUSH 12/10/17 18:30 (Tylenol) 650 mg Q6H PRN PO 12/10/17 18:30 (Percocet 5-325 Mg) 1 tab Q6H PRN PO 12/10/17 18:30 (Percocet 10-325 Mg) 1 tab Q6H PRN PO 12/10/17 18:30 (Morphine Inj) 2 mg Q3H PRN IV PUSH 12/10/17 18:30 (Morphine Inj) 4 mg Q3H PRN IV PUSH 12/10/17 18:30 (Morphine Inj) 4 mg Q3H PRN IV PUSH 12/10/17 18:30 (Narcan Inj) 0.4 mg UNSCH PRN IV PUSH 12/10/17 18:30 (Benita-Colace) 1 tab BID PO 12/10/17 21:00 12/13/17 08:43 (Milk Of Magnesia Liq) 30 ml Q12H PRN PO 12/10/17 18:30 (Senokot) 17.2 mg Q12H PRN PO 12/10/17 18:30 (Dulcolax Supp) 10 mg DAILY PRN RECTAL 12/10/17 18:30 (Lactulose Liq) 30 ml DAILY PRN PO 12/10/17 18:30 (Cordarone) 200 mg DAILY PO 12/11/17 09:00 12/13/17 08:43 (Eliquis) 5 mg BID PO 12/10/17 21:00 Future Hold 12/12/17 08:42 (Ecotrin Ec) 162 mg DAILY PO 12/11/17 09:00 12/13/17 08:44 (Zetia) 10 mg DAILY PO 12/11/17 09:00 12/13/17 08:43 (KCl) 10 meq BID PO 12/10/17 21:00 12/13/17 08:45 (Pravachol) 80 mg HS PO 12/10/17 21:00 12/12/17 20:47 (Flomax) 0.4 mg DAILY PO 12/11/17 09:00 12/13/17 08:43 (Mucinex Er) 600 mg BID PO 12/10/17 21:00 12/13/17 08:43 (Pill Splitter) 1 ea UNSCH PRN OTHER 12/10/17 19:30 Patient Own Medication PT OWN MED: IPRATROPRIUM NA... QID PRN NASAL 12/10/17 19:45 Future Hold Patient Own Medication PT OWN MED: DULERA--INHALE 1 PUFF BID BID INH 12/10/17 21:00 Future Hold Ceftriaxone Sodium 2000 mg/ Sodium Chloride 100 ml @ 200 mls/hr Q24H IV 12/11/17 17:00 12/12/17 16:56 (Colyte Liq) 4,000 ml ONCE ONCE PO 12/13/17 16:00 12/13/17 16:01 A/P Assessment and Plan (1) Sepsis ICD Code: A41.9 - Sepsis, unspecified organism Status: Acute (2) A-fib ICD Code: I48.91 - Unspecified atrial fibrillation Status: Chronic (3) Renal insufficiency ICD Code: N28.9 - Disorder of kidney and ureter, unspecified (4) Hyperglycemia ICD Code: R73.9 - Hyperglycemia, unspecified 1. Sepsis: Temp 102.4, HR 93, Lactic Acid 2.3, S/p Blood/Sputum Cultures, Vanc /Zosyn, will follow up cultures, continue IV Abx. CXR w/ no acute infiltrate noted Blood culture positive for E coli. he was in a Cruise asked for ID specialist following. asked for GI specialist for Colonoscopy tomorrow. 2. A-fib: Chronic, h/o Ablation x2 by Dr. Laura, follows w/ Dr. Dillard, resume home Amiodarone, Eliquis, Metoprolol, ASA. Cardiology stopped Metoprolol and started on Amlodipine. 3. Renal Insufficiency: Improved. 4. Hyperglycemia: Check Hgb A1c 5.6, sliding scale, 5. Obesity strongly recommended diet and exercise 6. SERGE probable related to #1 on CPAP. strongly recommended weight loss. DVT Prophylaxis: Eliquis Discharge Planning Once cleared by ID specialist. Jc Busch MD Dec 13, 2017 08:47
--- NOTE | 2017-12-13 12:26 | HHI.GIFU ---
Subjective Remarks Pt sitting on side of bed Reports 3 BMs today He is on clear liquids for colonoscopy tomorrow No GI complaints at this time (Gricelda Guzmán) Objective Vitals I&O Vital Signs Date Time Temp Pulse Resp B/P (MAP) Pulse Ox O2 Delivery O2 Flow Rate FiO2 12/13/17 09:57 95 Room Air 12/13/17 08:00 97.9 52 17 176/81 (112) 95 12/13/17 08:00 46 12/13/17 04:00 97.6 48 20 171/79 (109) 96 12/13/17 04:00 44 12/13/17 04:00 Room Air Bi-Pap 12/13/17 00:00 47 12/13/17 00:00 98.0 48 20 118/58 (78) 98 12/13/17 00:00 Bi-Pap 12/12/17 20:00 49 12/12/17 20:00 Room Air Bi-Pap 12/12/17 20:00 97.5 50 20 177/81 (113) 96 12/12/17 18:04 45 12/12/17 18:04 94 Room Air 12/12/17 16:00 97.8 49 17 147/70 (95) 94 12/12/17 15:21 50 12/12/17 15:21 96 Room Air I/O 12/12/17 12/12/17 12/12/17 12/13/17 12/13/17 12/13/17 07:00 15:00 23:00 07:00 15:00 23:00 Intake Total 960 ml 1960 ml 1280 ml Output Total 700 ml Balance 260 ml 1960 ml 1280 ml Intake Oral 960 ml 960 ml 380 ml IV Total 1000 ml 900 ml Output Urine Total 700 ml # Voids 2 # Bowel Movements 1 1 Laboratory Date/Time Source Procedure Growth Status 12/11/17 16:10 Blood Peripheral Aerobic Blood Culture - Preliminary NO GROWTH IN 2 DAYS Resulted 12/11/17 16:10 Blood Peripheral Anaerobic Blood Culture - Preliminary NO GROWTH IN 2 DAYS Resulted 12/10/17 16:15 Nasal Aspirate Influenza Types A,B Antigen (CAL) - Final NEGATIVE FOR FLU A AND B ANTIGEN.... Complete 12/10/17 16:50 Urine Clean Catch Streptococcus pneumoniae Antigen (M - Final PRESUMPTIVE NEGATIVE FOR STREPTOCOCCU... Complete Imaging Last Impressions Chest X-Ray 12/10/17 1606 Signed Impressions: Service Date/Time: November 16:16 - CONCLUSION: 1. No acute infiltrate. 2. Cardiomegaly with mild interstitial prominence concerning for some degree of vascular congestion or volume overload, unchanged from prior. Yonatan Jang MD Physical Exam HEENT: Normocephalic; atraumatic CHEST: Even/unlabored CARDIAC: RRR ABDOMEN: Distended, soft, nontender, bowel sounds active EXTREMITIES: No clubbing, cyanosis, or edema. SKIN: Normal; no rash; no jaundice. TRADING MANAGER: No focal deficits; alert and oriented times three. (Gricelda Guzmán) Assessment and Plan Plan Assessment: - E Coli bacteremia- ID consulted our service to further evaluate Of note, recent travel to [facility] Pt denies any GI symptoms except occasional acid reflux, fairly well controlled with Nexium Last colonoscopy and EGD 6 years ago, states polyp, otherwise normal exams - History of a-fib- On Eliquis- seen by cardiology (12/13) Pt on clear liquids for colonoscopy tomorrow. No GI complaints at this time. Eliquis on hold Plan: Colonoscopy Thursday Obtain consent Clear liquids tomorrow GoLytely prep NPO after MN Thursday Abx per ID Hold Eliquis for procedures Further recommendations based on findings of above Pt has been seen and examined by myself and Dr. Keyes and this note is written on his behalf (Gricelda Guzmán) Physician Comments Patient seen and examined Agree with above Continue with current supportive care Monitor labs Plan for colonoscopy tomorrow (Avinash Keyes MD) Gricedla Guzmán Dec 13, 2017 12:26 Avinash Keyes MD Dec 13, 2017 20:54
--- NOTE | 2017-12-13 12:36 | HHI.PR ---
Subjective Remarks Feeling ok Objective Vital Signs Date Time Temp Pulse Resp B/P (MAP) Pulse Ox O2 Delivery O2 Flow Rate FiO2 12/13/17 09:57 95 Room Air 12/13/17 08:00 97.9 52 17 176/81 (112) 95 12/13/17 08:00 46 12/13/17 04:00 97.6 48 20 171/79 (109) 96 12/13/17 04:00 44 12/13/17 04:00 Room Air Bi-Pap 12/13/17 00:00 47 12/13/17 00:00 98.0 48 20 118/58 (78) 98 12/13/17 00:00 Bi-Pap 12/12/17 20:00 49 12/12/17 20:00 Room Air Bi-Pap 12/12/17 20:00 97.5 50 20 177/81 (113) 96 12/12/17 18:04 45 12/12/17 18:04 94 Room Air 12/12/17 16:00 97.8 49 17 147/70 (95) 94 12/12/17 15:21 50 12/12/17 15:21 96 Room Air I/O 12/12/17 12/12/17 12/12/17 12/13/17 12/13/17 12/13/17 07:00 15:00 23:00 07:00 15:00 23:00 Intake Total 960 ml 1960 ml 1280 ml Output Total 700 ml Balance 260 ml 1960 ml 1280 ml Intake Oral 960 ml 960 ml 380 ml IV Total 1000 ml 900 ml Output Urine Total 700 ml # Voids 2 # Bowel Movements 1 1 Result Diagram: 12/11/17 0322 12/11/17 0322 Imaging Alert, fully oriented, reading the newspaper Lungs: ventilated Heart: S1, S2 regular, no gallop Abdomen: soft, no mass, obese Ext: no edema Last Impressions Chest X-Ray 12/10/17 1606 Signed Impressions: Service Date/Time: November 16:16 - CONCLUSION: 1. No acute infiltrate. 2. Cardiomegaly with mild interstitial prominence concerning for some degree of vascular congestion or volume overload, unchanged from prior. Yonatan Jang MD Current Medications Medications (Trade) Dose Ordered Sig/Quin Route Start Time Stop Time Status Last Admin Sodium Chloride 1,000 ml @ 100 mls/hr Q10H IV 12/10/17 20:00 12/13/17 08:00 (Tylenol) 650 mg Q4H PRN PO 12/10/17 18:30 (Zofran Inj) 4 mg Q6H PRN IV PUSH 12/10/17 18:30 (Duoneb Neb) 1 ampule Q4HR NEB PRN INH 12/10/17 18:30 (SoluMEDROL INJ) 40 mg Q12H IV PUSH 12/10/17 20:00 12/13/17 08:43 (NS Flush) 2 ml UNSCH PRN IV FLUSH 12/10/17 18:30 (NS Flush) 2 ml BID IV FLUSH 12/10/17 21:00 12/12/17 20:48 (Reglan Inj) 5 mg Q6H PRN IV PUSH 12/10/17 18:30 (Tylenol) 650 mg Q6H PRN PO 12/10/17 18:30 (Percocet 5-325 Mg) 1 tab Q6H PRN PO 12/10/17 18:30 (Percocet 10-325 Mg) 1 tab Q6H PRN PO 12/10/17 18:30 (Morphine Inj) 2 mg Q3H PRN IV PUSH 12/10/17 18:30 (Morphine Inj) 4 mg Q3H PRN IV PUSH 12/10/17 18:30 (Morphine Inj) 4 mg Q3H PRN IV PUSH 12/10/17 18:30 (Narcan Inj) 0.4 mg UNSCH PRN IV PUSH 12/10/17 18:30 (Benita-Colace) 1 tab BID PO 12/10/17 21:00 12/13/17 08:43 (Milk Of Magnesia Liq) 30 ml Q12H PRN PO 12/10/17 18:30 (Senokot) 17.2 mg Q12H PRN PO 12/10/17 18:30 (Dulcolax Supp) 10 mg DAILY PRN RECTAL 12/10/17 18:30 (Lactulose Liq) 30 ml DAILY PRN PO 12/10/17 18:30 (Cordarone) 200 mg DAILY PO 12/11/17 09:00 12/13/17 08:43 (Eliquis) 5 mg BID PO 12/10/17 21:00 Future Hold 12/12/17 08:42 (Ecotrin Ec) 162 mg DAILY PO 12/11/17 09:00 12/13/17 08:44 (Zetia) 10 mg DAILY PO 12/11/17 09:00 12/13/17 08:43 (KCl) 10 meq BID PO 12/10/17 21:00 12/13/17 08:45 (Pravachol) 80 mg HS PO 12/10/17 21:00 12/12/17 20:47 (Flomax) 0.4 mg DAILY PO 12/11/17 09:00 12/13/17 08:43 (Mucinex Er) 600 mg BID PO 12/10/17 21:00 12/13/17 08:43 (Pill Splitter) 1 ea UNSCH PRN OTHER 12/10/17 19:30 Patient Own Medication PT OWN MED: IPRATROPRIUM NA... QID PRN NASAL 12/10/17 19:45 Future Hold Patient Own Medication PT OWN MED: DULERA--INHALE 1 PUFF BID BID INH 12/10/17 21:00 Future Hold Ceftriaxone Sodium 2000 mg/ Sodium Chloride 100 ml @ 200 mls/hr Q24H IV 12/11/17 17:00 12/12/17 16:56 (Colyte Liq) 4,000 ml ONCE ONCE PO 12/13/17 16:00 12/13/17 16:01 Procedures None Assessment and Plan Problem List: (1) A-fib ICD Codes: I48.91 - Unspecified atrial fibrillation Status: Chronic Plan: In sinus rhythm Doing well (2) Hypertension ICD Codes: I10 - Essential (primary) hypertension Status: Chronic Plan: SBP high Metoprolol DC Amlodipine will be added Marisel Laura MD Dec 13, 2017 12:36
[2017-12-13] MEDS ORDERED: PHARMACY ORDERED LAB ONE (13:45)
[2017-12-13] MEDS ORDERED: PEG (High)/E-LYTE SOLN 4000 ML BTL PO ONE (16:00)
[2017-12-13] MEDS: cefTRIAXone INJ 2,000 MG in SODIUM CHLORIDE 0.9% INJ 100 ML IV SCH (16:22)
[2017-12-13] MEDS: PRAVASTATIN SOD 80 MG TAB PO SCH (21:09)
[2017-12-14] VITALS (10 sets, daily range): BP systolic 135–175; BP diastolic 61–79; PULSE 43–76; RESP 18–20; TEMP 97.5–98.4; O2SAT 91–98
[2017-12-14] MEDS: SODIUM CHLOR 0.9% 1000 ML INJ 1,000 ML IV SCH ×2 (04:52→16:34)
[2017-12-14] MEDS: SODIUM CHLORIDE 0.9% FLUSH 10 ML FLUSH IV FLUSH SCH ×2 (09:00→21:00)
[2017-12-14] MEDS: DOCUSATE SODIUM 50 MG/SENNA 8.6 MG TAB PO SCH ×2 (09:40→21:18)
[2017-12-14] MEDS: TAMSULOSIN HCL 0.4 MG CAP PO SCH (09:40)
[2017-12-14] MEDS: guaiFENesin E.R. 600 MG TAB PO SCH ×2 (09:40→21:19)
[2017-12-14] MEDS: ASPIRIN EC 81 MG TABEC PO SCH (09:40)
[2017-12-14] MEDS: AMIODARONE 200 MG TAB PO SCH (09:40)
[2017-12-14] MEDS: POTASSIUM CHLORIDE 10 MEQ CONTROLLED RELEASE TAB PO SCH ×2 (09:41→21:18)
[2017-12-14] MEDS: EZETIMIBE 10 MG TAB PO SCH (09:41)
[2017-12-14] MEDS: methylPREDNISolone SOD SUCC 40 MG/1 ML VIAL IV PUSH SCH ×2 (09:41→21:18)
[2017-12-14 10:20] LABS: BASOPHIL % 0.3 % (0.0-2.0); HEMOGLOBIN 14.4 GM/DL (13.0-17.0); LYMPH % 9.8 % (9.0-44.0); LYMPHOCYTE # 1.1 TH/MM3 (1.0-4.8); MEAN CELL VOLUME 86.8 FL (80.0-100.0); MEAN CORPUSCULAR HEMOGLOBIN 30.4 PG (27.0-34.0); MONO % 8.2 % (0.0-8.0); MONOCYTE # 0.9 TH/MM3 (0-0.9); NEUT % 81.7 % (16.0-70.0); PLATELET COUNT 214 TH/MM3 (150-450); RED BLOOD COUNT 4.73 MIL/MM3 (4.50-5.90); RED CELL DISTRIBUTION WIDTH 14.3 % (11.6-17.2)
--- NOTE | 2017-12-14 10:28 | HHI.IDPN ---
Subjective Subjective Remarks Patient seen and examined on behalf of Dr. Chacon This is a 77yo male with a PMHX of atrial fibrillation on Eliquis, CAD s/p previous [place] and cardiac stent implantation and CHF (Echo 04/26/16 w/ EF 30-35%) who presented to [facility] ED with complaints of acute onset of shaking/ rigors. Patient states he was feeling a little tired yesterday and laid down to take a nap. He suddenly developed uncontrollable shaking and his called 911. When EMS arrived, patient had a temperature of 102.4. In the ED, patient had fever of 103.1 and was tachycardic. He had elevated lactic acid of 2.3. White count elevated at 14.0. Urinalysis was negative. CXR revealed no acute infiltrate, cardiomegaly with mild interstitial prominence concerning for vascular congestion, unchanged from prior exam. Blood cultures were obtained and patient was started empirically on IV Vancomycin and Zosyn. Patient has grown E coli in one bottle. Infectious disease consultation has been requested for evaluation and management of E Coli bacteremia. Patient seen and examined. His is at the bedside. He is afebrile. His lactic acid is now 1.0. Patient states he feels fine and wants to know when he can be discharged. He denies any recent illness prior to the shaking episode but does report one episode of diarrhea several days ago. He and his returned from a cruise one week ago. He has had a cardiac stent implanted in 2006 and screw placed in his right big toe 20 yrs ago. He denies any previous total joint replacements. He denies any previous mesh implantation. He does not have a pacemaker, AICD or loop recorder implanted. He reports chronic nonproductive cough that is unchanged. He denies any associated headache, neck pain, nausea, vomiting, chest pain, shortness of breath, hematuria, dysuria, hematochezia or melena. He has not had any recurrence of diarrhea since the one episode several days ago. Notes reviewed patient did not sleep well 2/2 colonoscopy prep o/w no new complaints denies any fever or chills denies any change in chronic dyspnea denies any rash denies any dysuria afebrile bradycardiac with HR 40-50s WBC 14.0 on 12/11 while on IV steroid BCX + e coli 08/27 repeat BCX no growth to date Antibiotics IV Ceftriaxone Current Medications Medications (Trade) Dose Ordered Sig/Quin Route Start Time Stop Time Status Last Admin Sodium Chloride 1,000 ml @ 100 mls/hr Q10H IV 12/10/17 20:00 12/14/17 04:52 (Tylenol) 650 mg Q4H PRN PO 12/10/17 18:30 (Zofran Inj) 4 mg Q6H PRN IV PUSH 12/10/17 18:30 (Duoneb Neb) 1 ampule Q4HR NEB PRN INH 12/10/17 18:30 (SoluMEDROL INJ) 40 mg Q12H IV PUSH 12/10/17 20:00 12/14/17 09:41 (NS Flush) 2 ml UNSCH PRN IV FLUSH 12/10/17 18:30 (NS Flush) 2 ml BID IV FLUSH 12/10/17 21:00 12/13/17 21:00 (Reglan Inj) 5 mg Q6H PRN IV PUSH 12/10/17 18:30 (Tylenol) 650 mg Q6H PRN PO 12/10/17 18:30 (Percocet 5-325 Mg) 1 tab Q6H PRN PO 12/10/17 18:30 (Percocet 10-325 Mg) 1 tab Q6H PRN PO 12/10/17 18:30 (Morphine Inj) 2 mg Q3H PRN IV PUSH 12/10/17 18:30 (Morphine Inj) 4 mg Q3H PRN IV PUSH 12/10/17 18:30 (Morphine Inj) 4 mg Q3H PRN IV PUSH 12/10/17 18:30 (Narcan Inj) 0.4 mg UNSCH PRN IV PUSH 12/10/17 18:30 (Benita-Colace) 1 tab BID PO 12/10/17 21:00 12/14/17 09:40 (Milk Of Magnesia Liq) 30 ml Q12H PRN PO 12/10/17 18:30 (Senokot) 17.2 mg Q12H PRN PO 12/10/17 18:30 (Dulcolax Supp) 10 mg DAILY PRN RECTAL 12/10/17 18:30 (Lactulose Liq) 30 ml DAILY PRN PO 4/19/18 18:30 (Cordarone) 200 mg DAILY PO 12/11/17 09:00 12/14/17 09:40 (Eliquis) 5 mg BID PO 12/10/17 21:00 Future Hold 12/12/17 08:42 (Ecotrin Ec) 162 mg DAILY PO 12/11/17 09:00 12/14/17 09:40 (Zetia) 10 mg DAILY PO 12/11/17 09:00 12/14/17 09:41 (KCl) 10 meq BID PO 12/10/17 21:00 12/14/17 09:41 (Pravachol) 80 mg HS PO 12/10/17 21:00 12/13/17 21:09 (Flomax) 0.4 mg DAILY PO 12/11/17 09:00 12/14/17 09:40 (Mucinex Er) 600 mg BID PO 12/10/17 21:00 12/14/17 09:40 (Pill Splitter) 1 ea UNSCH PRN OTHER 12/10/17 19:30 Patient Own Medication PT OWN MED: IPRATROPRIUM NA... QID PRN NASAL 12/10/17 19:45 Future Hold Patient Own Medication PT OWN MED: DULERA--INHALE 1 PUFF BID BID INH 12/10/17 21:00 Future Hold Ceftriaxone Sodium 2000 mg/ Sodium Chloride 100 ml @ 200 mls/hr Q24H IV 12/11/17 17:00 12/13/17 16:22 (Norvasc) 10 mg DAILY PO 12/13/17 13:00 12/14/17 09:40 Lines PIV with minimal amount of active bleeding and surrounding ecchymosis, no e/o infection Past Medical History CAD s/p previous [place] and cardiac stent implant Atrial fibrillation on Eliquis Systolic CHF HTN HLD BPH SERGE on CPAP Past Surgical History Cardiac stent 2007 Screw right great toe Appendectomy Cataract sx Tonsillectomy Lipoma excision Allergies: Coded Allergies: No Known Allergies (Unverified , 07/23/16) Objective . Vital Signs Date Time Temp Pulse Resp B/P (MAP) Pulse Ox O2 Delivery O2 Flow Rate FiO2 12/14/17 08:04 97.9 51 18 168/76 (106) 93 12/14/17 04:00 97.9 47 20 151/77 (101) 95 12/14/17 04:00 44 12/14/17 00:00 Room Air 12/14/17 00:00 71 12/14/17 00:00 97.5 51 20 175/79 (111) 95 12/13/17 20:00 Room Air 12/13/17 20:00 50 12/13/17 20:00 97.9 50 20 160/81 (107) 95 12/13/17 18:06 94 Room Air 12/13/17 18:06 70 12/13/17 16:00 97.5 50 16 126/74 (91) 94 12/13/17 12:00 96 Room Air 12/13/17 12:00 48 12/13/17 12:00 98.3 51 17 176/81 (112) 92 . Laboratory Tests Test 12/14/17 09:57 Microbiology Date/Time Source Procedure Growth Status 12/11/17 16:10 Blood Peripheral Aerobic Blood Culture - Preliminary NO GROWTH IN 2 DAYS Resulted 12/11/17 16:10 Blood Peripheral Anaerobic Blood Culture - Preliminary NO GROWTH IN 2 DAYS Resulted 12/11/17 16:08 Blood Peripheral Aerobic Blood Culture - Preliminary NO GROWTH IN 2 DAYS Resulted 12/11/17 16:08 Blood Peripheral Anaerobic Blood Culture - Preliminary NO GROWTH IN 2 DAYS Resulted Imaging Last Impressions Chest X-Ray 12/10/17 1606 Signed Impressions: Service Date/Time: November 16:16 - CONCLUSION: 1. No acute infiltrate. 2. Cardiomegaly with mild interstitial prominence concerning for some degree of vascular congestion or volume overload, unchanged from prior. Yonatan Jang MD Physical Exam GENERAL: This is a well-nourished, well-developed obese male patient, in no apparent distress. Awake and alert. is at the bedside. Nurse present. SKIN: Warm and dry. No generalized rash. HEAD: Atraumatic. Normocephalic. No temporal or scalp tenderness. EYES: Pupils equal round and reactive. Extraocular motions intact. No scleral icterus. No injection or drainage. ENT: Nose without bleeding or purulent drainage. Throat without erythema, tonsillar hypertrophy or exudate. Uvula midline. Airway patent. MMM. NECK: Trachea midline. No lymphadenopathy. CARDIOVASCULAR: Bradycardic without murmurs, gallops, or rubs. RESPIRATORY: Clear to auscultation. Breath sounds equal bilaterally. No wheezes , rales, or rhonchi. GASTROINTESTINAL: Abdomen soft, non-tender, nondistended. No hepato-splenomegaly , or palpable masses. No guarding. MUSCULOSKELETAL: Extremities without clubbing, cyanosis, or edema. No joint tenderness, effusion, or edema noted. No calf tenderness. NEUROLOGICAL: Awake and alert. Cranial nerves II through XII grossly intact. Motor and sensory grossly within normal limits. No focal neurologic finding appreciated. Normal speech. PSYCHIATRIC: Appropriate mood and affect. Normal judgement and insight. Assessment & Plan Remarks ASSESSMENT: Severe sepsis with elevated WBC 14, tachycardia, fever 103.1, lactic acid of 2.3 and source of E Coli bacteremia -possibly food borne secondary to patients recent cruise -BCX + E Coli in 08/27 bottles. Repeat BCXs 12/11 negative to date -started empirically on IV Vanc and Zosyn. Now on IV Ceftriaxone, day 4 Leukocytosis -WBC up to 14.0 yesterday -suspect steroid rxn as patient on IV steroids CAD s/p previous [place] and cardiac stent implant Atrial fibrillation on Eliquis Systolic CHF HTN, not well controlled Bradycardia -Dr. Laura following. BB discontinued. HLD BPH SERGE on CPAP Obesity BMI 39.7 RECOMMENDATIONS: For colonoscopy today, follow up on operative findings/bx results Continue on IV Ceftriaxone. QT interval prolonged would like to avoid Levaquin given his cardiac history. Follow up on blood cultures until finalized Monitor white count - repeat CBC ordered/pending Monitor fevers Monitor clinical progress Further recommendations to follow Lilli Mcfadden Dec 14, 2017 10:28
--- NOTE | 2017-12-14 10:39 | HHI.IDPN ---
Subjective Subjective Remarks Patient seen and examined on behalf of Dr. Chacon This is a 77yo male with a PMHX of atrial fibrillation on Eliquis, CAD s/p previous ID and cardiac stent implantation and CHF (Echo 04/26/16 w/ EF 30-35%) who presented to [facility] ED with complaints of acute onset of shaking/ rigors. Patient states he was feeling a little tired yesterday and laid down to take a nap. He suddenly developed uncontrollable shaking and his called 911. When EMS arrived, patient had a temperature of 102.4. In the ED, patient had fever of 103.1 and was tachycardic. He had elevated lactic acid of 2.3. White count elevated at 14.0. Urinalysis was negative. CXR revealed no acute infiltrate, cardiomegaly with mild interstitial prominence concerning for vascular congestion, unchanged from prior exam. Blood cultures were obtained and patient was started empirically on IV Vancomycin and Zosyn. Patient has grown E coli in one bottle. Infectious disease consultation has been requested for evaluation and management of E Coli bacteremia. Patient seen and examined. His is at the bedside. He is afebrile. His lactic acid is now 1.0. Patient states he feels fine and wants to know when he can be discharged. He denies any recent illness prior to the shaking episode but does report one episode of diarrhea several days ago. He and his returned from a cruise one week ago. He has had a cardiac stent implanted in 2006 and screw placed in his right big toe 20 yrs ago. He denies any previous total joint replacements. He denies any previous mesh implantation. He does not have a pacemaker, AICD or loop recorder implanted. He reports chronic nonproductive cough that is unchanged. He denies any associated headache, neck pain, nausea, vomiting, chest pain, shortness of breath, hematuria, dysuria, hematochezia or melena. He has not had any recurrence of diarrhea since the one episode several days ago. Notes reviewed patient did not sleep well 2/2 colonoscopy prep o/w no new complaints denies any fever or chills denies any change in chronic dyspnea denies any rash denies any dysuria afebrile bradycardiac with HR 40-50s WBC 14.0 on 12/11 while on IV steroid BCX + e coli 08/27 repeat BCX no growth to date Antibiotics IV Ceftriaxone Current Medications Medications (Trade) Dose Ordered Sig/Quin Route Start Time Stop Time Status Last Admin Sodium Chloride 1,000 ml @ 100 mls/hr Q10H IV 12/10/17 20:00 12/14/17 04:52 (Tylenol) 650 mg Q4H PRN PO 12/10/17 18:30 (Zofran Inj) 4 mg Q6H PRN IV PUSH 12/10/17 18:30 (Duoneb Neb) 1 ampule Q4HR NEB PRN INH 12/10/17 18:30 (SoluMEDROL INJ) 40 mg Q12H IV PUSH 12/10/17 20:00 12/14/17 09:41 (NS Flush) 2 ml UNSCH PRN IV FLUSH 12/10/17 18:30 (NS Flush) 2 ml BID IV FLUSH 12/10/17 21:00 12/13/17 21:00 (Reglan Inj) 5 mg Q6H PRN IV PUSH 12/10/17 18:30 (Tylenol) 650 mg Q6H PRN PO 12/10/17 18:30 (Percocet 5-325 Mg) 1 tab Q6H PRN PO 12/10/17 18:30 (Percocet 10-325 Mg) 1 tab Q6H PRN PO 12/10/17 18:30 (Morphine Inj) 2 mg Q3H PRN IV PUSH 12/10/17 18:30 (Morphine Inj) 4 mg Q3H PRN IV PUSH 12/10/17 18:30 (Morphine Inj) 4 mg Q3H PRN IV PUSH 12/10/17 18:30 (Narcan Inj) 0.4 mg UNSCH PRN IV PUSH 12/10/17 18:30 (Benita-Colace) 1 tab BID PO 12/10/17 21:00 12/14/17 09:40 (Milk Of Magnesia Liq) 30 ml Q12H PRN PO 12/10/17 18:30 (Senokot) 17.2 mg Q12H PRN PO 12/10/17 18:30 (Dulcolax Supp) 10 mg DAILY PRN RECTAL 12/10/17 18:30 (Lactulose Liq) 30 ml DAILY PRN PO 4/19/18 18:30 (Cordarone) 200 mg DAILY PO 12/11/17 09:00 12/14/17 09:40 (Eliquis) 5 mg BID PO 12/10/17 21:00 Future Hold 12/12/17 08:42 (Ecotrin Ec) 162 mg DAILY PO 12/11/17 09:00 12/14/17 09:40 (Zetia) 10 mg DAILY PO 12/11/17 09:00 12/14/17 09:41 (KCl) 10 meq BID PO 12/10/17 21:00 12/14/17 09:41 (Pravachol) 80 mg HS PO 12/10/17 21:00 12/13/17 21:09 (Flomax) 0.4 mg DAILY PO 12/11/17 09:00 12/14/17 09:40 (Mucinex Er) 600 mg BID PO 12/10/17 21:00 12/14/17 09:40 (Pill Splitter) 1 ea UNSCH PRN OTHER 12/10/17 19:30 Patient Own Medication PT OWN MED: IPRATROPRIUM NA... QID PRN NASAL 12/10/17 19:45 Future Hold Patient Own Medication PT OWN MED: DULERA--INHALE 1 PUFF BID BID INH 12/10/17 21:00 Future Hold Ceftriaxone Sodium 2000 mg/ Sodium Chloride 100 ml @ 200 mls/hr Q24H IV 12/11/17 17:00 12/13/17 16:22 (Norvasc) 10 mg DAILY PO 12/13/17 13:00 12/14/17 09:40 Lines PIV with minimal amount of active bleeding and surrounding ecchymosis, no e/o infection Past Medical History CAD s/p previous ID and cardiac stent implant Atrial fibrillation on Eliquis Systolic CHF HTN HLD BPH SERGE on CPAP Past Surgical History Cardiac stent 2007 Screw right great toe Appendectomy Cataract sx Tonsillectomy Lipoma excision (Lilli Mcfadden) Allergies: Coded Allergies: No Known Allergies (Unverified , 07/23/16) Objective . Vital Signs Date Time Temp Pulse Resp B/P (MAP) Pulse Ox O2 Delivery O2 Flow Rate FiO2 12/14/17 08:04 97.9 51 18 168/76 (106) 93 12/14/17 04:00 97.9 47 20 151/77 (101) 95 12/14/17 04:00 44 12/14/17 00:00 Room Air 12/14/17 00:00 71 12/14/17 00:00 97.5 51 20 175/79 (111) 95 12/13/17 20:00 Room Air 12/13/17 20:00 50 12/13/17 20:00 97.9 50 20 160/81 (107) 95 12/13/17 18:06 94 Room Air 12/13/17 18:06 70 12/13/17 16:00 97.5 50 16 126/74 (91) 94 12/13/17 12:00 96 Room Air 12/13/17 12:00 48 12/13/17 12:00 98.3 51 17 176/81 (112) 92 . Laboratory Tests Test 12/14/17 09:57 White Blood Count 11.0 TH/MM3 Red Blood Count 4.73 MIL/MM3 Hemoglobin 14.4 GM/DL Hematocrit 41.0 % Mean Corpuscular Volume 86.8 FL Mean Corpuscular Hemoglobin 30.4 PG Mean Corpuscular Hemoglobin Concent 35.0 % Red Cell Distribution Width 14.3 % Platelet Count 214 TH/MM3 Mean Platelet Volume 7.0 FL Neutrophils (%) (Auto) 81.7 % Lymphocytes (%) (Auto) 9.8 % Monocytes (%) (Auto) 8.2 % Eosinophils (%) (Auto) 0.0 % Basophils (%) (Auto) 0.3 % Neutrophils # (Auto) 9.0 TH/MM3 Lymphocytes # (Auto) 1.1 TH/MM3 Monocytes # (Auto) 0.9 TH/MM3 Eosinophils # (Auto) 0.0 TH/MM3 Basophils # (Auto) 0.0 TH/MM3 CBC Comment DIFF FINAL Differential Comment Microbiology Date/Time Source Procedure Growth Status 12/11/17 16:10 Blood Peripheral Aerobic Blood Culture - Preliminary NO GROWTH IN 2 DAYS Resulted 12/11/17 16:10 Blood Peripheral Anaerobic Blood Culture - Preliminary NO GROWTH IN 2 DAYS Resulted 12/11/17 16:08 Blood Peripheral Aerobic Blood Culture - Preliminary NO GROWTH IN 2 DAYS Resulted 12/11/17 16:08 Blood Peripheral Anaerobic Blood Culture - Preliminary NO GROWTH IN 2 DAYS Resulted Imaging Last Impressions Chest X-Ray 12/10/17 1606 Signed Impressions: Service Date/Time: November 16:16 - CONCLUSION: 1. No acute infiltrate. 2. Cardiomegaly with mild interstitial prominence concerning for some degree of vascular congestion or volume overload, unchanged from prior. Yonatan Jang MD Physical Exam GENERAL: This is a well-nourished, well-developed obese male patient, in no apparent distress. Awake and alert. is at the bedside. Nurse present. SKIN: Warm and dry. No generalized rash. HEAD: Atraumatic. Normocephalic. No temporal or scalp tenderness. EYES: Pupils equal round and reactive. Extraocular motions intact. No scleral icterus. No injection or drainage. ENT: Nose without bleeding or purulent drainage. Throat without erythema, tonsillar hypertrophy or exudate. Uvula midline. Airway patent. MMM. NECK: Trachea midline. No lymphadenopathy. CARDIOVASCULAR: Bradycardic without murmurs, gallops, or rubs. RESPIRATORY: Clear to auscultation. Breath sounds equal bilaterally. No wheezes , rales, or rhonchi. GASTROINTESTINAL: Abdomen soft, non-tender, nondistended. No hepato-splenomegaly , or palpable masses. No guarding. MUSCULOSKELETAL: Extremities without clubbing, cyanosis, or edema. No joint tenderness, effusion, or edema noted. No calf tenderness. NEUROLOGICAL: Awake and alert. Cranial nerves II through XII grossly intact. Motor and sensory grossly within normal limits. No focal neurologic finding appreciated. Normal speech. PSYCHIATRIC: Appropriate mood and affect. Normal judgement and insight. (Lilli Mcfadden) Assessment & Plan Remarks ASSESSMENT: Severe sepsis with elevated WBC 14, tachycardia, fever 103.1, lactic acid of 2.3 and source of E Coli bacteremia -possibly food borne secondary to patients recent cruise -BCX + E Coli in 1/ bottles. Repeat BCXs 12/11 negative to date -started empirically on IV Vanc and Zosyn. Now on IV Ceftriaxone, day 4 Leukocytosis -WBC up to 14.0 yesterday -suspect steroid rxn as patient on IV steroids CAD s/p previous ID and cardiac stent implant Atrial fibrillation on Eliquis Systolic CHF HTN, not well controlled Bradycardia -Dr. Laura following. BB discontinued. HLD BPH SERGE on CPAP Obesity BMI 39.7 RECOMMENDATIONS: For colonoscopy today, follow up on operative findings/bx results Continue on IV Ceftriaxone. QT interval prolonged would like to avoid Levaquin given his cardiac history. Follow up on blood cultures until finalized Monitor white count - repeat CBC ordered/pending Monitor fevers Monitor clinical progress Further recommendations to follow (Lilli Mcfadden) Remarks The exam, history, and the medical decision-making described in the above note were completed with the assistance of the mid-level provider. I reviewed and agree with the findings presented. I attest that I had a [id number] encounter with the patient on the same day, and personally performed and documented my assessment and findings in the medical record. Dc home on oral Cefuroxime for 14 days Dw patient and daughter. Polyp biopsy pending. Needs GI follow up as planned. Diverticulosis diet counseling. Exam CTA BL Abd soft NT Recs E.coli bacteremia transient: likely GI source or food borne. Counseled for signs of recurrent ifnection and come back to ED or see PCP for repeat Blood cultures Dw Will sign off please call back if any change in clinical condition or questions. (Tram Chacon MD) Lilli Mcfadden Dec 14, 2017 10:39 Tram Chacon MD Dec 14, 2017 15:33
--- NOTE | 2017-12-14 10:49 | HHI.PR ---
Subjective Remarks This is a pleasant 69 y/o male with Hypertension, Atrial Fibrillation, on Eliquis, Anxiety disorder, CHF echo 04/26/16 EF 30-35%, has CAD, S/p Blood Cultures, Vanc/Zosyn in ER. Follows w/ Dr. Dillard as outpatient.he is been seen in his bedroom, discussed with nurse Positive blood culture for E Coli Bacteremia, asked for ID specialist consult. 12/13: Stable in his bedroom, Bacteremia secondary to E Coli, as per ID specialist probable related to recent Cruise. appeals specialist following, removed Metoprolol and added Amlodipine, no nausea, vomit or diarrhea , asked by GI specialist for Colonoscopy tomorrow. 12/14: No nausea, vomit or diarrhea, seen in his bedroom in the presence of his . Objective Vital Signs Date Time Temp Pulse Resp B/P (MAP) Pulse Ox O2 Delivery O2 Flow Rate FiO2 12/14/17 08:04 97.9 51 18 168/76 (106) 93 12/14/17 04:00 97.9 47 20 151/77 (101) 95 12/14/17 04:00 44 12/14/17 00:00 Room Air 12/14/17 00:00 71 12/14/17 00:00 97.5 51 20 175/79 (111) 95 12/13/17 20:00 Room Air 12/13/17 20:00 50 12/13/17 20:00 97.9 50 20 160/81 (107) 95 12/13/17 18:06 94 Room Air 12/13/17 18:06 70 12/13/17 16:00 97.5 50 16 126/74 (91) 94 12/13/17 12:00 96 Room Air 12/13/17 12:00 48 12/13/17 12:00 98.3 51 17 176/81 (112) 92 I/O 12/13/17 12/13/17 12/13/17 12/14/17 12/14/17 12/14/17 07:00 15:00 23:00 07:00 15:00 23:00 Intake Total 1280 ml 2100 ml 1815 ml Output Total 1550 ml 500 ml Balance 1280 ml 550 ml 1315 ml Intake Oral 380 ml 2100 ml 700 ml IV Total 900 ml 1115 ml Output Urine Total 1550 ml 500 ml # Bowel Movements 4 8 Result Diagram: 12/14/17 0957 12/11/17 0322 Imaging Last Impressions Chest X-Ray 12/10/17 1606 Signed Impressions: Service Date/Time: November 16:16 - CONCLUSION: 1. No acute infiltrate. 2. Cardiomegaly with mild interstitial prominence concerning for some degree of vascular congestion or volume overload, unchanged from prior. Yonatan Jang MD Procedures None Other Results Laboratory Tests Test 12/10/17 16:50 12/11/17 03:22 12/14/17 09:57 Urine Color LIGHT-YELLOW Urine Turbidity CLEAR Urine pH 5.0 Urine Specific [place] 1.010 Urine Protein NEG mg/dL Urine Glucose (UA) NEG mg/dL Urine Ketones NEG mg/dL Urine Occult Blood TRACE Urine Nitrite NEG Urine Bilirubin NEG Urine Urobilinogen LESS THAN 2.0 MG/DL Urine Leukocyte Esterase NEG Urine RBC 1 /hpf Urine Hyaline Casts 2 /lpf Microscopic Urinalysis Comment CATH-CULT NOT IND Blood Urea Nitrogen 23 MG/DL Creatinine 1.16 MG/DL Random Glucose 177 MG/DL Total Protein 6.8 GM/DL Albumin 3.3 GM/DL Calcium Level 8.1 MG/DL Phosphorus Level 2.8 MG/DL Magnesium Level 2.2 MG/DL Alkaline Phosphatase 53 U/L Aspartate Amino Transf (AST/SGOT) 24 U/L Alanine Aminotransferase (ALT/SGPT) 47 U/L Total Bilirubin 0.6 MG/DL Sodium Level 142 MEQ/L Potassium Level 4.0 MEQ/L Chloride Level 108 MEQ/L Carbon Dioxide Level 27.0 MEQ/L Anion Gap 7 MEQ/L Estimat Glomerular Filtration Rate 61 ML/MIN Hemoglobin A1c 5.9 % Lactic Acid Level 1.0 mmol/L Total Creatine Kinase 127 U/L Troponin I 0.02 NG/ML Free Thyroxine 1.29 NG/DL Thyroid Stimulating Hormone 3rd Gen 0.544 uIU/ML White Blood Count 11.0 TH/MM3 Red Blood Count 4.73 MIL/MM3 Hemoglobin 14.4 GM/DL Hematocrit 41.0 % Mean Corpuscular Volume 86.8 FL Mean Corpuscular Hemoglobin 30.4 PG Mean Corpuscular Hemoglobin Concent 35.0 % Red Cell Distribution Width 14.3 % Platelet Count 214 TH/MM3 Mean Platelet Volume 7.0 FL Neutrophils (%) (Auto) 81.7 % Lymphocytes (%) (Auto) 9.8 % Monocytes (%) (Auto) 8.2 % Eosinophils (%) (Auto) 0.0 % Basophils (%) (Auto) 0.3 % Neutrophils # (Auto) 9.0 TH/MM3 Lymphocytes # (Auto) 1.1 TH/MM3 Monocytes # (Auto) 0.9 TH/MM3 Eosinophils # (Auto) 0.0 TH/MM3 Basophils # (Auto) 0.0 TH/MM3 CBC Comment DIFF FINAL Differential Comment Objective Remarks GENERAL: No acute distress. Obesity HEENT: PERRLA, EOMI. No scleral icterus or conjunctival pallor. CARDIOVASCULAR: Regular rate and rhythm. No obvious murmurs to auscultation. No chest tenderness to palpation. RESPIRATORY: No obvious rhonchi or wheezing. Clear to auscultation. Breath sounds equal bilaterally. GASTROINTESTINAL: Abdomen soft, non-tender, nondistended. BS normal. MUSCULOSKELETAL: Extremities without clubbing, cyanosis, or edema. No obvious deformities. NEUROLOGICAL: Awake, alert and oriented x4. No focal neurologic deficits. Medications and IVs Current Medications Medications (Trade) Dose Ordered Sig/Quin Route Start Time Stop Time Status Last Admin Sodium Chloride 1,000 ml @ 100 mls/hr Q10H IV 12/10/17 20:00 12/14/17 04:52 (Tylenol) 650 mg Q4H PRN PO 12/10/17 18:30 (Zofran Inj) 4 mg Q6H PRN IV PUSH 12/10/17 18:30 (Duoneb Neb) 1 ampule Q4HR NEB PRN INH 12/10/17 18:30 (SoluMEDROL INJ) 40 mg Q12H IV PUSH 12/10/17 20:00 12/14/17 09:41 (NS Flush) 2 ml UNSCH PRN IV FLUSH 12/10/17 18:30 (NS Flush) 2 ml BID IV FLUSH 12/10/17 21:00 12/13/17 21:00 (Reglan Inj) 5 mg Q6H PRN IV PUSH 12/10/17 18:30 (Tylenol) 650 mg Q6H PRN PO 12/10/17 18:30 (Percocet 5-325 Mg) 1 tab Q6H PRN PO 12/10/17 18:30 (Percocet 10-325 Mg) 1 tab Q6H PRN PO 12/10/17 18:30 (Morphine Inj) 2 mg Q3H PRN IV PUSH 12/10/17 18:30 (Morphine Inj) 4 mg Q3H PRN IV PUSH 12/10/17 18:30 (Morphine Inj) 4 mg Q3H PRN IV PUSH 12/10/17 18:30 (Narcan Inj) 0.4 mg UNSCH PRN IV PUSH 12/10/17 18:30 (Benita-Colace) 1 tab BID PO 12/10/17 21:00 12/14/17 09:40 (Milk Of Magnesia Liq) 30 ml Q12H PRN PO 12/10/17 18:30 (Senokot) 17.2 mg Q12H PRN PO 12/10/17 18:30 (Dulcolax Supp) 10 mg DAILY PRN RECTAL 12/10/17 18:30 (Lactulose Liq) 30 ml DAILY PRN PO 12/10/17 18:30 (Cordarone) 200 mg DAILY PO 12/11/17 09:00 12/14/17 09:40 (Eliquis) 5 mg BID PO 12/10/17 21:00 Future Hold 12/12/17 08:42 (Ecotrin Ec) 162 mg DAILY PO 12/11/17 09:00 12/14/17 09:40 (Zetia) 10 mg DAILY PO 12/11/17 09:00 12/14/17 09:41 (KCl) 10 meq BID PO 12/10/17 21:00 12/14/17 09:41 (Pravachol) 80 mg HS PO 12/10/17 21:00 12/13/17 21:09 (Flomax) 0.4 mg DAILY PO 12/11/17 09:00 12/14/17 09:40 (Mucinex Er) 600 mg BID PO 12/10/17 21:00 12/14/17 09:40 (Pill Splitter) 1 ea UNSCH PRN OTHER 12/10/17 19:30 Patient Own Medication PT OWN MED: IPRATROPRIUM NA... QID PRN NASAL 12/10/17 19:45 Future Hold Patient Own Medication PT OWN MED: DULERA--INHALE 1 PUFF BID BID INH 12/10/17 21:00 Future Hold Ceftriaxone Sodium 2000 mg/ Sodium Chloride 100 ml @ 200 mls/hr Q24H IV 12/11/17 17:00 12/13/17 16:22 (Norvasc) 10 mg DAILY PO 12/13/17 13:00 12/14/17 09:40 A/P Assessment and Plan (1) Sepsis ICD Code: A41.9 - Sepsis, unspecified organism Status: Acute (2) A-fib ICD Code: I48.91 - Unspecified atrial fibrillation Status: Chronic (3) Renal insufficiency ICD Code: N28.9 - Disorder of kidney and ureter, unspecified (4) Hyperglycemia ICD Code: R73.9 - Hyperglycemia, unspecified 1. Sepsis: Temp 102.4, HR 93, Lactic Acid 2.3, S/p Blood/Sputum Cultures, Vanc /Zosyn, will follow up cultures, continue IV Abx. CXR w/ no acute infiltrate noted Blood culture positive for E coli. he was in a Cruise asked for ID specialist following. asked for GI specialist for Colonoscopy today at this time leaving for procedure. 2. A-fib: Chronic, h/o Ablation x2 by Dr. Laura, follows w/ Dr. Dillard, resume home Amiodarone, Eliquis, Metoprolol, ASA. Cardiology stopped Metoprolol and started on Amlodipine. 3. Hypertension uncontrolled but not able to take his medicines, continue present care. and discontinue IV fluids once eating again. 4. Hyperglycemia: Check Hgb A1c 5.6, sliding scale, 5. Obesity strongly recommended diet and exercise 6. SERGE probable related to #1 on CPAP. strongly recommended weight loss. 7. Renal Insufficiency: Improved. DVT Prophylaxis: Eliquis Discharge Planning Once cleared by ID specialist. Jc Busch MD Dec 14, 2017 10:48
[2017-12-14] MEDS ORDERED: GLUCAGON 1 MG/ML VIAL OTHER PRN (11:15)
[2017-12-14] MEDS ORDERED: DEXTROSE 50% IN WATER 50 ML VIAL(D50) IV PUSH PRN (11:15)
[2017-12-14] MEDS: INSULIN ASPART SUPPLEMENTAL SCALE SQ SCH ×3 (12:00→21:00)
[2017-12-14] MEDS ORDERED: PROPOFOL 200 MG/20 ML AMP IV ONE (12:00)
[2017-12-14] MEDS ORDERED: LIDOCAINE HCL 1% PF 5 ML SYRINGE OTHER ONE (12:00)
[2017-12-14] MEDS ORDERED: MIDAZOLAM HCL 2 MG/2 ML VIAL ONE (12:50)
--- NOTE | 2017-12-14 13:19 | PD.PROCEDR ---
GI Procedure PROCEDURE PERFORMED Colonoscopy with snare polypectomy INDICATION FOR PROCEDURE E. coli bacteremia and history of colon polyps with underlying history of atrial fibrillation PROCEDURE: The procedure, risks and benefits were discussed with Patient/POA and informed consent was obtained. Anesthesia sedated Patient with Diprivan. Patient was placed in the left lateral decubitus position. Colonoscopy: The Pentax videoscope was introduced through the rectum and advanced to cecum where the ileocecal valve and appendiceal orifice were identified. Retroflexion was performed in the rectum. Colonic prep was good FINDINGS: Colonic withdrawal time greater than 6 minutes. As the scope was slowly withdrawn colonic mucosa was carefully inspected the patient was noted to have 2 sessile polyps one medium sized in the cecum the other smaller in the distal transverse colon both were excised using cold snare technique and both were retrieved for further evaluation. Patient was also noted to have scattered diverticulosis throughout the colon mild in most of the colon but severe in the sigmoid region. Retroflexion in the rectum was unremarkable and so his rectal examination ESTIMATED BLOOD LOSS: None SPECIMENS REMOVED: Colon polyps removed COMPLICATIONS: None IMPRESSION: Colon polyps Diverticulosis PLAN: Await biopsies High-fiber diet Colonoscopy in 5 years No further recommendations from a GI perspective we will sign off Avinash Keyes MD Dec 14, 2017 13:19
[2017-12-14] MEDS ORDERED: DO NOT ADM ANY ANTICOAGULANT DRUGS PRN (13:30)
--- NOTE | 2017-12-14 14:09 | HHI.DS ---
Discharge Summary Admission Date Dec 10, 2017 at 18:38 Discharge Date: Dec 14, 2017 Admitting Diagnosis Sepsis, htn, atrial fibrillation (1) Sepsis ICD Code: A41.9 - Sepsis, unspecified organism Diagnosis: Principal Status: Acute (2) A-fib ICD Code: I48.91 - Unspecified atrial fibrillation Diagnosis: Principal Status: Chronic (3) Renal insufficiency ICD Code: N28.9 - Disorder of kidney and ureter, unspecified Diagnosis: Principal (4) Hyperglycemia ICD Code: R73.9 - Hyperglycemia, unspecified Diagnosis: Principal Procedures Colonoscopy Brief History - From Admission This is a 69-year-old male with a PMH of HTN, A. fib on Eliquis, Anxiety, CHF ( Echo 04/26/16 w/ EF 30-35%) and CAD who was brought to the ER for acute onset of shaking/rigors starting this afternoon. States he woke up from a nap and had sudden onset of shaking. No recent fever, chills, congestion. Pt reports chronic cough, non-productive. Upon EMS arrival, Temp 102.4. No nausea, vomiting, diarrhea or dysuria. On arrival, BP 145/67, HR 87, O2 sat 94% on RA, Temp 103.1. Creatinine 1.38, previously 1.30 on 09/13/2016. Lactic Acid 2.3. U /a negative for UTI. CXR w/ no acute infiltrate, cardiomegaly with mild interstitial prominence concerning for vascular congestion, unchanged from prior. S/p Blood Cultures, Vanc/Zosyn in ER. Follows w/ Dr. Dillard as outpatient. CBC/BMP: 12/14/17 0957 12/11/17 0322 Significant Findings Laboratory Tests Test 12/14/17 09:57 Neutrophils (%) (Auto) 81.7 % (16.0-70.0) Monocytes (%) (Auto) 8.2 % (0.0-8.0) Neutrophils # (Auto) 9.0 TH/MM3 (1.8-7.7) Imaging Last Impressions Chest X-Ray 12/10/17 1606 Signed Impressions: Service Date/Time: November 16:16 - CONCLUSION: 1. No acute infiltrate. 2. Cardiomegaly with mild interstitial prominence concerning for some degree of vascular congestion or volume overload, unchanged from prior. Yonatan Jang MD PE at Discharge GENERAL: No acute distress. Obesity HEENT: PERRLA, EOMI. No scleral icterus or conjunctival pallor. CARDIOVASCULAR: Regular rate and rhythm. No obvious murmurs to auscultation. No chest tenderness to palpation. RESPIRATORY: No obvious rhonchi or wheezing. Clear to auscultation. Breath sounds equal bilaterally. GASTROINTESTINAL: Abdomen soft, non-tender, nondistended. BS normal. MUSCULOSKELETAL: Extremities without clubbing, cyanosis, or edema. No obvious deformities. NEUROLOGICAL: Awake, alert and oriented x4. No focal neurologic deficits. Pt Condition on Discharge: Good Discharge Disposition: Discharge Home Discharge Time: > 30 minutes Discharge Instructions DIET: Follow Instructions for: Heart Healthy Diet Activities you can perform: Regular-No Restrictions Jc Busch MD Dec 14, 2017 14:09
[2017-12-14] MEDS ORDERED: AMLO10 PO (14:10)
[2017-12-14] MEDS ORDERED: CEFU1TAB18 PO (15:30)
[2017-12-14] MEDS ORDERED: CEFUROXIME AXETIL 500 MG TAB PO SCH (21:00)
[2017-12-14] MEDS: PRAVASTATIN SOD 80 MG TAB PO SCH (21:19)
[2017-12-14] MEDS: CEFUROXIME AXETIL 500 MG TAB PO SCH (21:19)
--- NOTE | 2017-12-14 22:14 | HHI.PR ---
Subjective Remarks Feeling better Objective Vital Signs Date Time Temp Pulse Resp B/P (MAP) Pulse Ox O2 Delivery O2 Flow Rate FiO2 12/14/17 16:04 98.4 50 18 135/61 (85) 93 12/14/17 16:00 Room Air 12/14/17 15:42 56 12/14/17 12:55 97.2 49 20 150/70 (96) 95 Nasal Cannula 2 12/14/17 12:45 48 20 150/70 (96) 95 Nasal Cannula 2 12/14/17 12:42 97.2 49 16 155/80 (105) 93 Nasal Cannula 2 12/14/17 12:00 Room Air 12/14/17 11:48 50 12/14/17 10:50 94 12/14/17 08:13 50 12/14/17 08:04 97.9 51 18 168/76 (106) 93 12/14/17 08:00 Room Air 12/14/17 04:00 97.9 47 20 151/77 (101) 95 12/14/17 04:00 44 12/14/17 00:00 Room Air 12/14/17 00:00 71 12/14/17 00:00 97.5 51 20 175/79 (111) 95 I/O 12/13/17 12/13/17 12/13/17 12/14/17 12/14/17 12/14/17 07:00 15:00 23:00 07:00 15:00 23:00 Intake Total 1280 ml 2100 ml 1815 ml 200 ml 480 ml Output Total 1550 ml 500 ml 0 ml Balance 1280 ml 550 ml 1315 ml 200 ml 480 ml Intake Oral 380 ml 2100 ml 700 ml 480 ml IV Total 900 ml 1115 ml 200 ml Output Urine Total 1550 ml 500 ml Estimated Blood Loss 0 ml # Voids 3 # Bowel Movements 4 8 0 Result Diagram: 12/14/17 0957 12/11/17 0322 Imaging Alert, fully oriented Lungs: ventilated Heart: s1, S2 regular Abdomen: soft, no mass, obese Ext: no edema. Current Medications Medications (Trade) Dose Ordered Sig/Quin Route Start Time Stop Time Status Last Admin Sodium Chloride 1,000 ml @ 100 mls/hr Q10H IV 12/10/17 20:00 12/14/17 16:34 (Tylenol) 650 mg Q4H PRN PO 12/10/17 18:30 (Zofran Inj) 4 mg Q6H PRN IV PUSH 12/10/17 18:30 (Duoneb Neb) 1 ampule Q4HR NEB PRN INH 12/10/17 18:30 (SoluMEDROL INJ) 40 mg Q12H IV PUSH 12/10/17 20:00 12/14/17 21:18 (NS Flush) 2 ml UNSCH PRN IV FLUSH 12/10/17 18:30 (NS Flush) 2 ml BID IV FLUSH 12/10/17 21:00 12/14/17 21:00 (Reglan Inj) 5 mg Q6H PRN IV PUSH 12/10/17 18:30 (Tylenol) 650 mg Q6H PRN PO 12/10/17 18:30 (Percocet 5-325 Mg) 1 tab Q6H PRN PO 12/10/17 18:30 (Percocet 10-325 Mg) 1 tab Q6H PRN PO 12/10/17 18:30 (Morphine Inj) 2 mg Q3H PRN IV PUSH 12/10/17 18:30 (Morphine Inj) 4 mg Q3H PRN IV PUSH 12/10/17 18:30 (Morphine Inj) 4 mg Q3H PRN IV PUSH 12/10/17 18:30 (Narcan Inj) 0.4 mg UNSCH PRN IV PUSH 12/10/17 18:30 (Benita-Colace) 1 tab BID PO 12/10/17 21:00 12/14/17 21:18 (Milk Of Magnesia Liq) 30 ml Q12H PRN PO 12/10/17 18:30 (Senokot) 17.2 mg Q12H PRN PO 12/10/17 18:30 (Dulcolax Supp) 10 mg DAILY PRN RECTAL 12/10/17 18:30 (Lactulose Liq) 30 ml DAILY PRN PO 12/10/17 18:30 (Cordarone) 200 mg DAILY PO 12/11/17 09:00 12/14/17 09:40 (Eliquis) 5 mg BID PO 12/10/17 21:00 Future Hold 12/12/17 08:42 (Ecotrin Ec) 162 mg DAILY PO 12/11/17 09:00 12/14/17 09:40 (Zetia) 10 mg DAILY PO 12/11/17 09:00 12/14/17 09:41 (KCl) 10 meq BID PO 12/10/17 21:00 12/14/17 21:18 (Pravachol) 80 mg HS PO 12/10/17 21:00 12/14/17 21:19 (Flomax) 0.4 mg DAILY PO 12/11/17 09:00 12/14/17 09:40 (Mucinex Er) 600 mg BID PO 12/10/17 21:00 12/14/17 21:19 (Pill Splitter) 1 ea UNSCH PRN OTHER 12/10/17 19:30 Patient Own Medication PT OWN MED: IPRATROPRIUM NA... QID PRN NASAL 12/10/17 19:45 Future Hold Patient Own Medication PT OWN MED: DULERA--INHALE 1 PUFF BID BID INH 12/10/17 21:00 Future Hold (Norvasc) 10 mg DAILY PO 12/13/17 13:00 12/14/17 09:40 (NovoLOG SUPPLEMENTAL SCALE) 1 ACHS SLIDING SCALE SQ 12/14/17 12:00 12/14/17 21:00 (D50w (Vial) Inj) 50 ml UNSCH PRN IV PUSH 12/14/17 11:15 (Glucagon Inj) 1 mg UNSCH PRN OTHER 12/14/17 11:15 Miscellaneous Information ALL NURSING DEPARTME... UNSCH PRN .XX 12/14/17 13:30 12/15/17 13:29 (Ceftin) 500 mg Q12HR PO 12/14/17 21:00 12/14/17 21:19 Procedures None Assessment and Plan Problem List: (1) A-fib ICD Codes: I48.91 - Unspecified atrial fibrillation Status: Chronic Plan: In sinus rhythm Doing well (2) Hypertension ICD Codes: I10 - Essential (primary) hypertension Status: Chronic Plan: SP colonoscopy. Doing well BP better control Continue with current meds Can be DH in AM if stable Follow up as OP with Marisel Mckeon MD Dec 14, 2017 22:14
[2017-12-15 01:10] VITALS: BP 139/67; PULSE 46; RESP 18; TEMP 98.6; O2SAT 95
[2017-12-15] MEDS: SODIUM CHLOR 0.9% 1000 ML INJ 1,000 ML IV SCH ×2 (02:12→10:00)
[2017-12-15 03:46] VITALS: PULSE 41
[2017-12-15 04:00] VITALS: BP 146/71; PULSE 44; RESP 18; TEMP 97.2; O2SAT 97
[2017-12-15 07:30] VITALS: PULSE 44
[2017-12-15 08:00] VITALS: BP 160/72; PULSE 45; RESP 20; TEMP 98.2; O2SAT 95
[2017-12-15] MEDS: INSULIN ASPART SUPPLEMENTAL SCALE SQ SCH (08:00)
--- NOTE | 2017-12-15 08:35 | PD.CARD.PN ---
Subjective Subjective Remarks Blood pressure improving. Feels okay. Objective Medications Current Medications Medications (Trade) Dose Ordered Sig/Quin Route Start Time Stop Time Status Last Admin Sodium Chloride 1,000 ml @ 100 mls/hr Q10H IV 12/10/17 20:00 12/15/17 02:12 (Tylenol) 650 mg Q4H PRN PO 12/10/17 18:30 (Zofran Inj) 4 mg Q6H PRN IV PUSH 12/10/17 18:30 (Duoneb Neb) 1 ampule Q4HR NEB PRN INH 12/10/17 18:30 (SoluMEDROL INJ) 40 mg Q12H IV PUSH 12/10/17 20:00 12/14/17 21:18 (NS Flush) 2 ml UNSCH PRN IV FLUSH 12/10/17 18:30 (NS Flush) 2 ml BID IV FLUSH 12/10/17 21:00 12/14/17 21:00 (Reglan Inj) 5 mg Q6H PRN IV PUSH 12/10/17 18:30 (Tylenol) 650 mg Q6H PRN PO 12/10/17 18:30 (Percocet 5-325 Mg) 1 tab Q6H PRN PO 12/10/17 18:30 (Percocet 10-325 Mg) 1 tab Q6H PRN PO 12/10/17 18:30 (Morphine Inj) 2 mg Q3H PRN IV PUSH 12/10/17 18:30 (Morphine Inj) 4 mg Q3H PRN IV PUSH 12/10/17 18:30 (Morphine Inj) 4 mg Q3H PRN IV PUSH 12/10/17 18:30 (Narcan Inj) 0.4 mg UNSCH PRN IV PUSH 12/10/17 18:30 (Benita-Colace) 1 tab BID PO 12/10/17 21:00 12/14/17 21:18 (Milk Of Magnesia Liq) 30 ml Q12H PRN PO 12/10/17 18:30 (Senokot) 17.2 mg Q12H PRN PO 12/10/17 18:30 (Dulcolax Supp) 10 mg DAILY PRN RECTAL 12/10/17 18:30 (Lactulose Liq) 30 ml DAILY PRN PO 12/10/17 18:30 (Cordarone) 200 mg DAILY PO 12/11/17 09:00 12/14/17 09:40 (Eliquis) 5 mg BID PO 12/10/17 21:00 Future Hold 12/12/17 08:42 (Ecotrin Ec) 162 mg DAILY PO 12/11/17 09:00 12/14/17 09:40 (Zetia) 10 mg DAILY PO 12/11/17 09:00 12/14/17 09:41 (KCl) 10 meq BID PO 12/10/17 21:00 12/14/17 21:18 (Pravachol) 80 mg HS PO 12/10/17 21:00 12/14/17 21:19 (Flomax) 0.4 mg DAILY PO 12/11/17 09:00 12/14/17 09:40 (Mucinex Er) 600 mg BID PO 12/10/17 21:00 12/14/17 21:19 (Pill Splitter) 1 ea UNSCH PRN OTHER 12/10/17 19:30 Patient Own Medication PT OWN MED: IPRATROPRIUM NA... QID PRN NASAL 12/10/17 19:45 Future Hold Patient Own Medication PT OWN MED: DULERA--INHALE 1 PUFF BID BID INH 12/10/17 21:00 Future Hold (Norvasc) 10 mg DAILY PO 12/13/17 13:00 12/14/17 09:40 (NovoLOG SUPPLEMENTAL SCALE) 1 ACHS SLIDING SCALE SQ 12/14/17 12:00 12/14/17 21:00 (D50w (Vial) Inj) 50 ml UNSCH PRN IV PUSH 12/14/17 11:15 (Glucagon Inj) 1 mg UNSCH PRN OTHER 12/14/17 11:15 Miscellaneous Information ALL NURSING DEPARTME... UNSCH PRN .XX 12/14/17 13:30 12/15/17 13:29 (Ceftin) 500 mg Q12HR PO 12/14/17 21:00 12/14/17 21:19 Vital Signs / I&O Vital Signs Date Time Temp Pulse Resp B/P (MAP) Pulse Ox O2 Delivery O2 Flow Rate FiO2 12/15/17 08:00 98.2 45 20 160/72 (101) 95 12/15/17 04:00 97.2 44 18 146/71 (96) 97 12/15/17 03:46 41 12/15/17 01:10 98.6 46 18 139/67 (91) 95 12/14/17 23:45 43 12/14/17 20:00 97.8 50 18 138/66 (90) 91 12/14/17 20:00 Room Air 12/14/17 19:42 56 12/14/17 16:04 98.4 50 18 135/61 (85) 93 12/14/17 16:00 Room Air 12/14/17 15:42 56 12/14/17 12:55 97.2 49 20 150/70 (96) 95 Nasal Cannula 2 12/14/17 12:45 48 20 150/70 (96) 95 Nasal Cannula 2 12/14/17 12:42 97.2 49 16 155/80 (105) 93 Nasal Cannula 2 12/14/17 12:00 Room Air 12/14/17 11:48 50 12/14/17 10:50 94 I/O 12/14/17 12/14/17 12/14/17 12/15/17 12/15/17 12/15/17 07:00 15:00 23:00 07:00 15:00 23:00 Intake Total 1815 ml 200 ml 480 ml 1869 ml Output Total 500 ml 0 ml Balance 1315 ml 200 ml 480 ml 1869 ml Intake Oral 700 ml 480 ml IV Total 1115 ml 200 ml 1869 ml Output Urine Total 500 ml Estimated Blood Loss 0 ml # Voids 3 4 # Bowel Movements 8 0 0 Physical Exam GENERAL: Well-nourished, well-developed patient. SKIN: Warm and dry. HEAD: Normocephalic. EYES: No scleral icterus. No injection or drainage. NECK: Supple, trachea midline. No JVD or lymphadenopathy. CARDIOVASCULAR: Regular rate and rhythm without murmurs, gallops, or rubs. RESPIRATORY: Breath sounds equal bilaterally. No accessory muscle use. GASTROINTESTINAL: Abdomen soft, non-tender, nondistended. EXTREMITIES: No cyanosis, or edema. NEUROLOGICAL: Awake, alert, and oriented x 3. Non-focal. Laboratory Laboratory Tests Test 12/14/17 09:57 White Blood Count 11.0 TH/MM3 Red Blood Count 4.73 MIL/MM3 Hemoglobin 14.4 GM/DL Hematocrit 41.0 % Mean Corpuscular Volume 86.8 FL Mean Corpuscular Hemoglobin 30.4 PG Mean Corpuscular Hemoglobin Concent 35.0 % Red Cell Distribution Width 14.3 % Platelet Count 214 TH/MM3 Mean Platelet Volume 7.0 FL Neutrophils (%) (Auto) 81.7 % Lymphocytes (%) (Auto) 9.8 % Monocytes (%) (Auto) 8.2 % Eosinophils (%) (Auto) 0.0 % Basophils (%) (Auto) 0.3 % Neutrophils # (Auto) 9.0 TH/MM3 Lymphocytes # (Auto) 1.1 TH/MM3 Monocytes # (Auto) 0.9 TH/MM3 Eosinophils # (Auto) 0.0 TH/MM3 Basophils # (Auto) 0.0 TH/MM3 CBC Comment DIFF FINAL Differential Comment Imaging Last Impressions Chest X-Ray 12/10/17 1606 Signed Impressions: Service Date/Time: , December 10, 2017 16:16 - CONCLUSION: 1. No acute infiltrate. 2. Cardiomegaly with mild interstitial prominence concerning for some degree of vascular congestion or volume overload, unchanged from prior. Yonatan Jang MD Assessment and Plan Problem List: (1) A-fib ICD Codes: I48.91 - Unspecified atrial fibrillation Status: Chronic Plan: Resume Eliquis when cleared by GI. Heart rate controlled. (2) Hypertension ICD Codes: I10 - Essential (primary) hypertension Status: Chronic Plan: Improving on current medications. Follow-up with Dr. Dillard as outpatient. Assessment and Plan Discussed with patient, RN, Dr. Laura. Problem Qualifiers (1) A-fib: Qualified Codes: I48.0 - Paroxysmal atrial fibrillation Barbara Yusuf Dec 15, 2017 08:35
--- NOTE | 2017-12-15 08:39 | HHI.PR ---
Objective Vitals V Result Diagram: 12/14/17 0957 12/11/17 0322 Tiffany Cuadra MD Dec 15, 2017 08:38
--- NOTE | 2017-12-15 08:51 | HHI.PR ---
Subjective Remarks patient sitting on side of the bed- reading newspapaers no complains telemetry HR 40s Objective Vitals Vital Signs Date Time Temp Pulse Resp B/P (MAP) Pulse Ox O2 Delivery O2 Flow Rate FiO2 12/15/17 08:00 98.2 45 20 160/72 (101) 95 12/15/17 04:00 97.2 44 18 146/71 (96) 97 12/15/17 03:46 41 12/15/17 01:10 98.6 46 18 139/67 (91) 95 12/14/17 23:45 43 12/14/17 20:00 97.8 50 18 138/66 (90) 91 12/14/17 20:00 Room Air 12/14/17 19:42 56 12/14/17 16:04 98.4 50 18 135/61 (85) 93 12/14/17 16:00 Room Air 12/14/17 15:42 56 12/14/17 12:55 97.2 49 20 150/70 (96) 95 Nasal Cannula 2 12/14/17 12:45 48 20 150/70 (96) 95 Nasal Cannula 2 12/14/17 12:42 97.2 49 16 155/80 (105) 93 Nasal Cannula 2 12/14/17 12:00 Room Air 12/14/17 11:48 50 12/14/17 10:50 94 I/O 12/14/17 12/14/17 12/14/17 12/15/17 12/15/17 12/15/17 07:00 15:00 23:00 07:00 15:00 23:00 Intake Total 1815 ml 200 ml 480 ml 1869 ml Output Total 500 ml 0 ml Balance 1315 ml 200 ml 480 ml 1869 ml Intake Oral 700 ml 480 ml IV Total 1115 ml 200 ml 1869 ml Output Urine Total 500 ml Estimated Blood Loss 0 ml # Voids 3 4 # Bowel Movements 8 0 0 Result Diagram: 12/14/17 0957 12/11/17 0322 Imaging Last Impressions Chest X-Ray 12/10/17 1606 Signed Impressions: Service Date/Time: November 16:16 - CONCLUSION: 1. No acute infiltrate. 2. Cardiomegaly with mild interstitial prominence concerning for some degree of vascular congestion or volume overload, unchanged from prior. Yonatan Jang MD Objective Remarks awake and alert, oriented x 3 no distress anicteric no rales no wheezes regular rhythm HR 46 abdomen soft, nontender extremities no edema Procedures 12/14 Colonoscopy with snare polypectomy A/P Problem List: (1) Sepsis ICD Code: A41.9 - Sepsis, unspecified organism Status: Acute (2) A-fib ICD Code: I48.91 - Unspecified atrial fibrillation Status: Chronic (3) Renal insufficiency ICD Code: N28.9 - Disorder of kidney and ureter, unspecified (4) Hyperglycemia ICD Code: R73.9 - Hyperglycemia, unspecified Assessment and Plan 77 YEARS OLD MALE E coli . Sepsis: Temp 102.4, HR 93, Lactic Acid 2.3, S/p Blood/Sputum Cultures , Vanc/Zosyn, will follow up cultures, continue IV Abx. CXR w/ no acute infiltrate noted - DC on Cefuroxime 500 mg po bid A-fib: Chronic, h/o Ablation x2 by Dr. Laura, follows w/ Dr. Dillard, resume home Amiodarone, Eliquis, ASA. Cardiology stopped Metoprolol Hypertension - better readings - started on Amlodipien 10 mg daily S/P colonoscopy with snare polypectomy- toelrated procedure well. Hyperglycemia: Check Hgb A1c 5.6, sliding scale, Obesity strongly recommended diet and exercise SERGE probable related to #1 on CPAP. strongly recommended weight loss. Renal Insufficiency: Improved. DVT Prophylaxis: Eliquis Problem Qualifiers (1) A-fib: Qualified Codes: I48.0 - Paroxysmal atrial fibrillation Tiffany Cuadra MD Dec 15, 2017 08:51
[2017-12-15] MEDS: guaiFENesin E.R. 600 MG TAB PO SCH (09:08)
[2017-12-15] MEDS: CEFUROXIME AXETIL 500 MG TAB PO SCH (09:08)
[2017-12-15] MEDS: methylPREDNISolone SOD SUCC 40 MG/1 ML VIAL IV PUSH SCH (09:08)
[2017-12-15] MEDS: EZETIMIBE 10 MG TAB PO SCH (09:10)
[2017-12-15] MEDS: POTASSIUM CHLORIDE 10 MEQ CONTROLLED RELEASE TAB PO SCH (09:10)
[2017-12-15] MEDS: SODIUM CHLORIDE 0.9% FLUSH 10 ML FLUSH IV FLUSH SCH (09:11)
[2017-12-15] MEDS: TAMSULOSIN HCL 0.4 MG CAP PO SCH (09:11)
[2017-12-15] MEDS: ASPIRIN EC 81 MG TABEC PO SCH (09:11)
[2017-12-15] MEDS: DOCUSATE SODIUM 50 MG/SENNA 8.6 MG TAB PO SCH (09:11)
[2017-12-15] MEDS ORDERED: APIXABAN 5 MG TABLET PO SCH (09:15)
[2017-12-15] MEDS: AMIODARONE 200 MG TAB PO SCH (09:17)
--- NOTE | 2017-12-15 10:19 | HHI.DS ---
Discharge Summary Admission Date Dec 10, 2017 at 18:38 Discharge Date: Dec 15, 2017 Admitting Diagnosis Sepsis, htn, atrial fibrillation (1) Sepsis ICD Code: A41.9 - Sepsis, unspecified organism Status: Acute (2) A-fib ICD Code: I48.91 - Unspecified atrial fibrillation Status: Chronic (3) Renal insufficiency ICD Code: N28.9 - Disorder of kidney and ureter, unspecified (4) Hyperglycemia ICD Code: R73.9 - Hyperglycemia, unspecified Procedures 12/14 Colonoscopy with snare polypectomy Brief History - From Admission This is a 69-year-old male with a PMH of HTN, A. fib on Eliquis, Anxiety, CHF ( Echo 04/26/16 w/ EF 30-35%) and CAD who was brought to the ER for acute onset of shaking/rigors starting this afternoon. States he woke up from a nap and had sudden onset of shaking. No recent fever, chills, congestion. Pt reports chronic cough, non-productive. Upon EMS arrival, Temp 102.4. No nausea, vomiting, diarrhea or dysuria. On arrival, BP 145/67, HR 87, O2 sat 94% on RA, Temp 103.1. Creatinine 1.38, previously 1.30 on 09/13/2016. Lactic Acid 2.3. U /a negative for UTI. CXR w/ no acute infiltrate, cardiomegaly with mild interstitial prominence concerning for vascular congestion, unchanged from prior. S/p Blood Cultures, Vanc/Zosyn in ER. Follows w/ Dr. Dillard as outpatient. CBC/BMP: 12/14/17 0957 12/11/17 0322 Significant Findings Laboratory Tests Test 12/14/17 09:57 Neutrophils (%) (Auto) 81.7 % (16.0-70.0) Monocytes (%) (Auto) 8.2 % (0.0-8.0) Neutrophils # (Auto) 9.0 TH/MM3 (1.8-7.7) Imaging Last Impressions Chest X-Ray 12/10/17 1606 Signed Impressions: Service Date/Time: November 16:16 - CONCLUSION: 1. No acute infiltrate. 2. Cardiomegaly with mild interstitial prominence concerning for some degree of vascular congestion or volume overload, unchanged from prior. Yonatan Jang MD PE at Discharge awake and alert, oriented x 3 no distress anicteric no rales no wheezes regular rhythm HR 46 abdomen soft, nontender extremities no edema Pt update on day of discharge awake and alert no complains Pt Condition on Discharge: Good Discharge Disposition: Discharge Home Discharge Time: > 30 minutes Discharge Instructions DIET: Follow Instructions for: Heart Healthy Diet Activities you can perform: Weight Bearing as Emily Follow up Referrals: Cardiology - 1 Week with Roel Dillard MD Cardiology @ DR DILLARD PCP Follow-up - 3-5 Days with Lara PCP Follow-up @ [facility] New Medications: Cefuroxime (Ceftin) 250 Mg Tab 500 MG PO BID for E coli transient bacteremia for 14 Days, #56 TAB 0 Refills Amlodipine (Norvasc) 10 Mg Tab 10 MG PO DAILY for HTN, #30 TAB 0 Refills Continued Medications: Amiodarone (Amiodarone) 200 Mg Tab 200 MG PO DAILY for Regulate Heart Beat, #30 TAB 0 Refills Apixaban (Eliquis) 5 Mg Tab 5 MG PO BID for Blood Clot Prevention, #60 TAB [address] (Aspirin 81) 81 Mg Tabdr 162 MG PO DAILY, TAB 0 Refills Cholecalciferol (Vitamin D-1000) 1,000 Unit Tab 1000 UNITS PO DAILY for Nutritional Supplement, #1 BOTTLE 0 Refills Coenzyme Q10 (Ubidecarenone) (Co Q-10) 100 Mg Cap 100 MG PO DAILY for Nutritional Supplement Ezetimibe (Zetia) 10 Mg Tab 10 MG PO DAILY, #30 TAB 0 Refills Furosemide (Lasix) 40 Mg Tab 40 MG PO BID, #60 TAB 0 Refills Glucosamine (Glucosamine) 1,500 Mg Tab 1500 MG PO DAILY for Herbal Supplements, TAB 0 Refills Ipratropium Nasal (Ipratropium Nasal) 0.03% Filer 1 SPRAY EACH NARE QID PRN for RUNNY NOSE Mometasone-Formoterol 120 Act Inh (Dulera 120 Act Inh) 100-5 Mcg/Act Inh 1 PUFF INH BID for Asthma Management, #1 INHALER 0 Refills Multiple Vitamins W/ Minerals (Centrum Silver Adult 50+) 0.4 Mg-300 Mcg-250 Mcg Tab 1 TAB PO DAILY Potassium Chloride ER (Potassium Chloride ER) 10 Meq Tab 10 MEQ PO BID for Electrolyte Replacement, #30 TAB 0 Refills Pravastatin (Pravastatin) 80 Mg Tab 80 MG PO HS for Cholesterol Management, #30 TAB 0 Refills Tamsulosin (Tamsulosin) 0.4 Mg Cap 0.4 MG PO DAILY for Manage Prostate Problems, #30 CAP 0 Refills Temazepam (Restoril) 15 Mg Cap 15 MG PO HS, #30 CAP 0 Refills Testosterone Cypionate Inj (Depo-Testosterone Inj) Unknown Strength Inj Unknown Dose IM WEEKLY for Hormone Replacement, #1 INJECTION 0 Refills Discontinued Medications: Metoprolol Tartrate (Metoprolol Tartrate) 75 Mg Tab 37.5 MG PO DAILY, #30 TAB 0 Refills Tiffany Cuadra MD Dec 15, 2017 10:19
== END 2017-12-15 10:30 | disposition home or self-care (01) | DRG 872 ==
LOC: NEPE 15:49 → NEDA 18:38 → N04A 22:16
PROVIDERS: ADMIT Internal Medicine; ATTEND Internal Medicine
PROC: 0DBN8ZX Excision of Sigmoid Colon, Via Natural or Artificial Opening Endoscopic, Diagnostic (ICD-10-PCS; 2017-12-14)
PROC: 0DB88ZX Excision of Small Intestine, Via Natural or Artificial Opening Endoscopic, Diagnostic (ICD-10-PCS; principal; 2017-12-14 11:44)
DX: A41.51 Sepsis due to Escherichia coli [E. coli] (principal); N17.9 Acute kidney failure, unspecified; Z99.81 Dependence on supplemental oxygen; I13.0 Hypertensive heart and chronic kidney disease with heart failure and stage 1 through stage 4 chronic kidney disease, or unspecified chronic kidney disease; I50.22 Chronic systolic (congestive) heart failure; I48.2 Chronic atrial fibrillation; R00.1 Bradycardia, unspecified; Z68.41 Body mass index [BMI] 40.0-44.9, adult; R65.20 Severe sepsis without septic shock; N18.9 Chronic kidney disease, unspecified; I25.2 Old myocardial infarction; Z95.5 Presence of coronary angioplasty implant and graft; Z87.891 Personal history of nicotine dependence; Z87.442 Personal history of urinary calculi; Z86.010 Personal history of colon polyps; Z85.828 Personal history of other malignant neoplasm of skin; Z82.49 Family history of ischemic heart disease and other diseases of the circulatory system; E66.01 Morbid (severe) obesity due to excess calories; R73.9 Hyperglycemia, unspecified; Z79.01 Long term (current) use of anticoagulants; E78.5 Hyperlipidemia, unspecified; N40.0 Benign prostatic hyperplasia without lower urinary tract symptoms; G47.33 Obstructive sleep apnea (adult) (pediatric); I25.10 Atherosclerotic heart disease of native coronary artery without angina pectoris; I44.0 Atrioventricular block, first degree; I45.10 Unspecified right bundle-branch block; K21.9 Gastro-esophageal reflux disease without esophagitis; K57.30 Diverticulosis of large intestine without perforation or abscess without bleeding; D12.0 Benign neoplasm of cecum; K63.5 Polyp of colon; F41.9 Anxiety disorder, unspecified
CPT/HCPCS: 36415; 71045; 80053; 81001; 82550; 82948; 83036; 83605; 83735; 84100; 84439; 84443; 84484; 85025; 87040; 87186; 87205; 87449; 87804; 88305; 93005; 94150; 96365; J0696; J1815; J2250; J2543; J2920; J3370; J7030; J7040